=== PATIENT | male | born 1950 | race Caucasian/White ===

== ENCOUNTER → 2017-10-13 | Outpatient (REF) | payer MEDICARE ==
[2017-10-13 11:21] LABS: FOLATE 6.4 NG/ML; VITAMIN B12 LEVEL 272 PG/ML
[2017-10-18 14:19] LABS: VITAMIN B1 LEVEL WHOLE BLOOD 106.9 nmol/L (66.5-200.0)
== END ==
LOC: M LAB REF 10:36
DX: Z98.84 Bariatric surgery status (principal)
CPT/HCPCS: 82746

== ENCOUNTER → 2017-11-25 | Outpatient (CLI) | payer MEDICARE | LOC: M RAD 12:21 | DX: R31.0 Gross hematuria (principal) ==

== ENCOUNTER → 2017-12-22 | Outpatient (CLI) | payer MEDICARE | LOC: M RAD 13:23 | DX: R31.0 Gross hematuria (principal); I70.1 Atherosclerosis of renal artery; K76.89 Other specified diseases of liver; D73.89 Other diseases of spleen | CPT/HCPCS: 74176 ==

== ENCOUNTER 2018-01-27 06:34 | Day surgery (SDC) | payer MEDICARE ==
[~2018-01-27 06:34] MED LIST: NS 1,000 ML IV
[2018-01-27] MEDS ORDERED: LIDOCAINE 2% INJ 100 MG/5 ML SDV (FOR ANES.) As Ordered (07:25)
[2018-01-27] MEDS ORDERED: PROPOFOL 500 MG/50 ML VIAL As Ordered (07:25)
== END 2018-01-27 08:13 | disposition home or self-care (01) ==
LOC: M OPP 06:34
DX: Z12.11 Encounter for screening for malignant neoplasm of colon (principal); D12.5 Benign neoplasm of sigmoid colon; K57.30 Diverticulosis of large intestine without perforation or abscess without bleeding; K64.8 Other hemorrhoids; G47.30 Sleep apnea, unspecified; Z86.010 Personal history of colon polyps; Z98.890 Other specified postprocedural states; Z87.891 Personal history of nicotine dependence; Z98.0 Intestinal bypass and anastomosis status; Z91.041 Radiographic dye allergy status; Z88.1 Allergy status to other antibiotic agents; Z88.0 Allergy status to penicillin
CPT/HCPCS: 45385

== ENCOUNTER 2018-06-27 20:26 | Emergency (ER) | payer MEDICARE ==
[~2018-06-27] VITALS: Ht 177.8 cm; Wt 98.6 kg
[~2018-06-27 20:26] MED LIST changes: +ACET65TA OR; +ASPI325T OR; +ATEN25TA OR; +BACT800T OR; +CLAR5CHW OR; +FISH1000 OR; +Januvia PO; +METFORMIN PO; -NS 1,000 ML IV; +TRAM50TA2 OR; +TRIC145T19 OR; +TYLE1TAB5 PO
[2018-06-27 20:53] LABS: BASO # 0.1 10^3/uL (0.0-0.2); BASO % 0.7 % (0.0-1.0); EOS # 0.3 10^3/uL (0.0-0.50); EOS % 3.3 % (0.0-3.0); HEMATOCRIT 40.9 % (42.0-52.0); HEMOGLOBIN 13.7 g/dl (13.5-17.5); LYMPH # 2.9 10^3/uL (1.5-4.5); LYMPH % 33.5 % (24.0-44.0); MEAN CORPUSCULAR HEMOGLOBIN 30.9 pg (27.0-33.0); MEAN CORPUSCULAR HGB CONC 33.5 g/dl (32.0-36.5); MEAN CORPUSCULAR VOLUME 92.3 fl (80.0-96.0); MONO # 0.8 10^3/uL (0.0-0.8); MONO % 9.1 % (0.0-5.0); NEUTROPHILS # 4.5 10^3/uL (1.8-7.7); NEUTROPHILS % 52.9 % (36.0-66.0); PLATELET COUNT, AUTOMATED 262 10^3/uL (150-450); RED BLOOD COUNT 4.43 10^6/uL (4.30-6.10); WHITE BLOOD COUNT 8.6 10^3/uL (4.0-10.0)
[2018-06-27 21:30] LABS: BLOOD UREA NITROGEN 16 MG/DL (7-18); CALCIUM LEVEL 8.9 MG/DL (8.8-10.2); CARBON DIOXIDE LEVEL 26 MEQ/L (21-32); CHLORIDE LEVEL 106 MEQ/L (98-107); CPK CREATINE PHOSPHOKINASE 445 U/L (39-308); CREATININE FOR GFR 0.84 MG/DL (0.70-1.30); GLOMERULAR FILTRATION RATE > 60.0 (>49); GLUCOSE, FASTING 105 MG/DL (70-100); MB/CK RELATIVE INDEX 9.53 (< OR =4); POTASSIUM SERUM 3.9 MEQ/L (3.5-5.1); SODIUM LEVEL 140 MEQ/L (136-145); TROPONIN I 4.36 NG/ML (< 0.10)
[2018-06-27 21:40] LABS: INR 0.92; PROTHROMBIN TIME 12.4 SECONDS (12.1-14.4)
[2018-06-27] MEDS ORDERED: HEPARIN DRIP 25,000 UNITS in APPROPRIATE DILUENT 1 EA IV SCH (21:54)
[2018-06-27] MEDS ORDERED: CLOPIDOGREL 300 MG TAB (PLAVIX) PO ONE (22:00)
[2018-06-27] MEDS ORDERED: HEPARIN SOD (PORCINE) 5000 UNITS/ML VIAL IV ONE (22:00)
[2018-06-27] MEDS ORDERED: ASPIRIN 81 MG CHEW TABLET PO ONE (22:00)
--- NOTE | 2018-06-27 22:10 | ECGEPIP ---
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
[2018-06-27 23:35] VITALS: BP 189/95
--- NOTE | 2018-06-28 01:00 | REP ---
Clinical: Chest pain . Comparison: 02/13/2011 . Findings: The mediastinum and cardiac silhouette are stable and within normal limits for portable technique. Elevated right hemidiaphragm again noted. The lung gurrola are clear without acute consolidation, effusion, or pneumothorax. Skeletal structures are intact. Impression: No acute cardiopulmonary process appreciated. Electronically Signed by Phi Verdugo MD 06/28/2018 12:51 A
== END 2018-06-27 23:40 | disposition short-term general hospital (02) ==
LOC: M ED 20:26
DX: I21.4 Non-ST elevation (NSTEMI) myocardial infarction (principal); I44.1 Atrioventricular block, second degree; Z88.0 Allergy status to penicillin; Z88.1 Allergy status to other antibiotic agents; Z91.041 Radiographic dye allergy status; F10.99 Alcohol use, unspecified with unspecified alcohol-induced disorder

== ENCOUNTER → 2018-08-19 | Outpatient (CLI) | payer MEDICARE | LOC: M LAB 07:59 | PROVIDERS: ATTEND Urology | DX: R31.0 Gross hematuria (principal) ==

== ENCOUNTER → 2019-01-09 | Outpatient (CLI) | payer MEDICARE ==
--- NOTE | 2019-01-09 11:05 | REP ---
Six views lumbar spine: 01/09/2019. Indication: Lumbar radiculopathy. Comparison: None. Findings: Disc space narrowing is present throughout most pronounced at L4/L5. Disc osteophytes are noted most apparent anteriorly at L3/L4 new. There is no evidence of acute fracture. The patient is status post aortic endograft placement. Impression: No acute osseous injury of the lumbar spine detected. Extensive spondylosis. Electronically Signed by Osvaldo Sandoval DO 01/09/2019 10:57 A
== END ==
LOC: M RAD 09:21
PROVIDERS: ATTEND Nurse Practitioner Adult Health
DX: M54.5 Low back pain (principal)

== ENCOUNTER 2019-01-24 11:00 | Outpatient (RCR) | payer MEDICARE | END 2019-01-28 | LOC: M PT 11:00 | PROVIDERS: ATTEND Nurse Practitioner Adult Health | DX: M54.5 Low back pain (principal) ==

== ENCOUNTER 2019-02-01 13:38 | Outpatient (RCR) | payer MEDICARE | END 2019-02-28 | LOC: M PT 13:38 | PROVIDERS: ATTEND Nurse Practitioner Adult Health | DX: M54.5 Low back pain (principal) ==

== ENCOUNTER → 2019-02-08 | Outpatient (CLI) | payer MEDICARE | LOC: M LAB 10:48 | PROVIDERS: ATTEND Nurse Practitioner Family | DX: R97.20 Elevated prostate specific antigen [PSA] (principal) | CPT/HCPCS: 36415; G0103 ==

== ENCOUNTER 2019-05-20 23:29 | Emergency (ER) | payer MEDICARE ==
[~2019-05-20] VITALS: Ht 177.8 cm; Wt 97.9 kg
[2019-05-21] MEDS ORDERED: AMLO5TAB6 PO (00:05)
[2019-05-21] MEDS ORDERED: VITA30004 PO (00:05)
[2019-05-21] MEDS ORDERED: CLOP75TA2 PO (00:05)
[2019-05-21] MEDS ORDERED: ASPI81CH33 PO (00:05)
[2019-05-21] MEDS ORDERED: ATOR80TA59 PO (00:05)
[2019-05-21] MEDS ORDERED: LISI-542 PO (00:05)
[2019-05-21 00:38] LABS: BASO # 0.1 10^3/uL (0.0-0.2); BASO % 0.8 % (0.0-1.0); EOS # 0.4 10^3/uL (0.0-0.5); EOS % 4.6 % (0.0-3.0); HEMATOCRIT 41.9 % (42.0-52.0); LYMPH # 2.6 10^3/uL (1.5-5.0); LYMPH % 31.1 % (24.0-44.0); MEAN CORPUSCULAR HEMOGLOBIN 31.5 pg (27.0-33.0); MEAN CORPUSCULAR HGB CONC 33.4 g/dl (32.0-36.5); MEAN CORPUSCULAR VOLUME 94.4 fl (80.0-96.0); MONO # 0.8 10^3/uL (0.0-0.8); MONO % 9.5 % (0.0-5.0); NEUTROPHILS # 4.5 10^3/uL (1.5-8.5); NEUTROPHILS % 53.8 % (36.0-66.0); PLATELET COUNT, AUTOMATED 228 10^3/uL (150-450); RED BLOOD COUNT 4.44 10^6/uL (4.30-6.10); WHITE BLOOD COUNT 8.3 10^3/uL (4.0-10.0)
[2019-05-21] MEDS ORDERED: NS 500 ML IV ONE ×2 (00:45→01:00)
[2019-05-21] MEDS ORDERED: KETAMINE HCL 20 MG in NS 50 ML IV ONE (00:45)
[2019-05-21 00:56] LABS: BLOOD UREA NITROGEN 21 MG/DL (7-18); CALCIUM LEVEL 9.1 MG/DL (8.8-10.2); CARBON DIOXIDE LEVEL 28 MEQ/L (21-32); CHLORIDE LEVEL 107 MEQ/L (98-107); CREATININE FOR GFR 0.96 MG/DL (0.70-1.30); GLOMERULAR FILTRATION RATE > 60.0 (>42); GLUCOSE, FASTING 109 MG/DL (70-100); POTASSIUM SERUM 3.8 MEQ/L (3.5-5.1); SODIUM LEVEL 138 MEQ/L (136-145); T UPTAKE 35 % (33-40); THYROXINE (T4) 8.6 UG/DL (4.5-12.0)
--- NOTE | 2019-05-21 01:00 | REPVR ---
PROCEDURE INFORMATION: Exam: CT Lumbar Spine Without Contrast Exam date and time: 05/21/2019 12:42 AM Age: 68 years old Clinical indication: Low back pain TECHNIQUE: Imaging protocol: Computed tomography images of the lumbar spine without contrast. Radiation optimization: All CT scans at this facility use at least one of these dose optimization techniques: automated exposure control; mA and/or kV adjustment per patient size (includes targeted exams where dose is matched to clinical indication); or iterative reconstruction. COMPARISON: CR Spine. Lumbosacral, complete 01/09/2019 9:32 AM FINDINGS: Vertebrae: Chronic mild compression deformity of the superior anterior endplate of T12. Lumbar vertebral body heights are intact. Lumbar lordosis is preserved. Multilevel facet arthropathy. No acute lumbar spine fracture. No measurable spondylolisthesis. Discs/Spinal canal/Neural foramina: Multilevel degenerative changes with intervertebral disc height loss and osteophyte formation. Vasculature: Atherosclerotic calcifications of the aorta and major branches. Bi-iliac aortic endograft placement. Soft tissues: Unremarkable. IMPRESSION: 1. No acute findings in the lumbar spine. 2. Other chronic findings, as above. Electronically signed by: Aung Cross On 05/21/2019 01:00:09 AM
[2019-05-21 01:51] LABS: CPK CREATINE PHOSPHOKINASE 838 U/L (39-308)
[2019-05-21] MEDS ORDERED: ROBA750T4 PO (01:55)
[2019-05-21] MEDS ORDERED: METHOCARBAMOL 1,000 MG/10 ML VIAL (J2800) IV ONE (02:00)
[2019-05-21 02:56] VITALS: BP 170/108
== END 2019-05-21 03:11 | disposition home or self-care (01) ==
LOC: M ED 23:29
DX: E86.0 Dehydration (principal); S76.911A Strain of unspecified muscles, fascia and tendons at thigh level, right thigh, initial encounter; S76.912A Strain of unspecified muscles, fascia and tendons at thigh level, left thigh, initial encounter; X58.XXXA Exposure to other specified factors, initial encounter; Y92.89 Other specified places as the place of occurrence of the external cause; M54.9 Dorsalgia, unspecified; G89.29 Other chronic pain; M51.36 Other intervertebral disc degeneration, lumbar region; I11.9 Hypertensive heart disease without heart failure; E78.5 Hyperlipidemia, unspecified; I25.2 Old myocardial infarction; I25.10 Atherosclerotic heart disease of native coronary artery without angina pectoris; Z95.5 Presence of coronary angioplasty implant and graft; Z98.84 Bariatric surgery status; Z91.041 Radiographic dye allergy status; Z88.0 Allergy status to penicillin; Z88.1 Allergy status to other antibiotic agents; Z79.899 Other long term (current) drug therapy; Z79.02 Long term (current) use of antithrombotics/antiplatelets; Z79.82 Long term (current) use of aspirin
CPT/HCPCS: 72131; 80048; 82550; 84436; 84443; 84479; 85025; 96361; 96365; 96375; 99284; J2800

== ENCOUNTER 2019-08-16 23:45 | Emergency (ER) | payer MEDICARE ==
[~2019-08-16] VITALS: Ht 177.8 cm; Wt 95.0 kg
[~2019-08-16 23:45] MED LIST changes: +AMLO5TAB6 PO; +ASPI81CH33 PO; +ATOR80TA59 PO; +CLOP75TA2 PO; +LISI-542 PO; +ROBA750T4 PO; +VITA30004 PO
[2019-08-17] MEDS ORDERED: KETOROLAC 30 MG/ML 1ML VIAL IV ONE (01:30)
[2019-08-17 02:30] LABS: BASO % 0.5 % (0.0-1.0); EOS # 0.3 10^3/uL (0.0-0.5); EOS % 3.3 % (0.0-3.0); HEMATOCRIT 38.9 % (42.0-52.0); HEMOGLOBIN 12.7 g/dl (13.5-17.5); LYMPH % 26.2 % (24.0-44.0); MEAN CORPUSCULAR HEMOGLOBIN 31.3 pg (27.0-33.0); MEAN CORPUSCULAR HGB CONC 32.6 g/dl (32.0-36.5); MEAN CORPUSCULAR VOLUME 95.8 fl (80.0-96.0); MONO # 0.9 10^3/uL (0.0-0.8); MONO % 11.6 % (0.0-5.0); NEUTROPHILS # 4.4 10^3/uL (1.5-8.5); NEUTROPHILS % 58.1 % (36.0-66.0); PLATELET COUNT, AUTOMATED 208 10^3/uL (150-450); RED BLOOD COUNT 4.06 10^6/uL (4.30-6.10); WHITE BLOOD COUNT 7.6 10^3/uL (4.0-10.0)
[2019-08-17] MEDS ORDERED: ONDANSETRON 4MG/2ML VIAL IV ONE (02:30)
[2019-08-17 02:35] LABS: PROTHROMBIN TIME 12.9 SECONDS (11.8-14.0)
[2019-08-17] MEDS: MORPHINE 4 MG/ML 1ML VIAL/SYRINGE (J2270) IV PRN ×2 (02:35→03:18)
[2019-08-17 02:36] LABS: PARTIAL THROMBOPLASTIN TIME 33.8 SECONDS (25.0-38.4)
[2019-08-17 02:46] VITALS: BP 175/74
--- NOTE | 2019-08-17 03:00 | REPVR ---
PROCEDURE INFORMATION: Exam: US Duplex Left Lower Extremity Veins, Limited Exam date and time: 08/17/2019 2:33 AM Age: 68 years old Clinical indication: Pain; Leg, upper; Left; Additional info: Left thigh pain TECHNIQUE: Imaging protocol: Real-time Duplex ultrasound of the Left Lower Extremity with 2-D ramirez scale, color Doppler flow and spectral waveform analysis with image documentation. Limited exam focused on the left lower extremity veins. COMPARISON: No relevant prior studies available. FINDINGS: Left deep veins: Unremarkable. The common femoral, femoral, proximal profunda femoral and popliteal veins are patent without thrombus. Normal Doppler waveforms. Normal compressibility and/or augmentation response. Left superficial veins: Unremarkable. Saphenofemoral junction is patent without thrombus. Left superficial femoral artery: No flow is visualized in the left superficial femoral arteries or popliteal artery. Common femoral artery is patent. Soft tissues: There is a heterogeneous complex subcutaneous collection in the left groin adjacent to the common femoral artery measuring approximately 4.6 x 3.8 x 4.1 cm. No internal Doppler blood flow is seen in the collection. IMPRESSION: 1. Occluded left superficial femoral and popliteal arteries. 2. No deep vein thrombosis. 3. Heterogeneous collection in the left groin may be a hematoma but the appearance is nonspecific. No internal Doppler blood flow or fistula is seen. Electronically signed by: Wilfrido Haji On 08/17/2019 03:00:02 AM
[2019-08-17 03:03] LABS: BLOOD UREA NITROGEN 21 MG/DL (7-18); CALCIUM LEVEL 8.4 MG/DL (8.8-10.2); CARBON DIOXIDE LEVEL 27 MEQ/L (21-32); CHLORIDE LEVEL 109 MEQ/L (98-107); CPK CREATINE PHOSPHOKINASE 580 U/L (39-308); CREATININE FOR GFR 0.81 MG/DL (0.70-1.30); GLOMERULAR FILTRATION RATE > 60.0 (>42); GLUCOSE, FASTING 121 MG/DL (70-100); POTASSIUM SERUM 3.9 MEQ/L (3.5-5.1); SODIUM LEVEL 141 MEQ/L (136-145)
[2019-08-17] MEDS ORDERED: GABAPENTIN 300 MG CAP PO ONE (03:45)
--- NOTE | 2019-08-17 05:18 | REPVR ---
PROCEDURE INFORMATION: Exam: US Right Non-Vascular Joint or Other Extremity Structure, Limited Exam date and time: 08/17/2019 5:01 AM Age: 68 years old Clinical indication: Pain; Thigh and lower leg; Left; Prior surgery; Surgery date: 6+ months; Surgery type: Graft? Per patient in the 1970s; Additional info: Left thigh pain, art occlusion seen on dvt study, vasc reque TECHNIQUE: Imaging protocol: Right US Non-Vascular Joint or Other Extremity Structure. Limited exam COMPARISON: No relevant prior studies available. FINDINGS: Soft tissues: There is a complex heterogeneous collection in the left groin measuring approximately 5.0 x 3.5 x 4.8 cm adjacent to the left common femoral artery. No blood flow is seen within the structure. Vasculature: Biphasic flow is present in the left common femoral artery. Minimal flow is visualized in the proximal femoral artery. The mid and distal femoral artery are occluded. Left profunda femoral artery is occluded. Proximal popliteal artery is occluded. Flow is present in the distal popliteal artery through a graft. A patent vessel with arterial flow extending down the mid and distal lateral thigh bifurcates into multiple small collaterals. Distal posterior tibial artery is occluded. Anterior tibial artery is patent. Other findings: The common and external iliac arteries are not well visualized. IMPRESSION: 1. Heterogeneous complex collection in the left groin, likely hematoma. No internal blood flow is seen. 2. Occluded mid and distal femoral artery. Occluded popliteal artery with revascularization through a graft in the distal popliteal artery. 3. Occluded posterior tibial artery. Patent anterior tibial artery. Electronically signed by: Wilfrido Haji On 08/17/2019 05:17:40 AM
[2019-08-17] MEDS ORDERED: GABA-845 PO (06:23)
== END 2019-08-17 06:37 | disposition home or self-care (01) ==
LOC: M ED 23:45
DX: M79.606 Pain in leg, unspecified (principal); I10 Essential (primary) hypertension; I73.9 Peripheral vascular disease, unspecified; Z91.041 Radiographic dye allergy status; Z88.0 Allergy status to penicillin; Z88.8 Allergy status to other drugs, medicaments and biological substances; Z79.899 Other long term (current) drug therapy; Z79.01 Long term (current) use of anticoagulants; Z79.82 Long term (current) use of aspirin
CPT/HCPCS: 80048; 82550; 85025; 85610; 85730; 93926; 93971; 96374; 96375; 96376; 99284; J1885; J2270; J2405

== ENCOUNTER 2019-11-18 14:47 | Inpatient (IN) | payer MEDICARE ==
[~2019-11-18] VITALS: Ht 177.8 cm; Wt 90.9 kg
[~2019-11-18 14:47] MED LIST changes: +AMLO1TAB24 PO; -AMLO5TAB6 PO; +GABA-845 PO
[2019-11-18] MEDS ORDERED: PERCOCET 5MG/325MG TAB PO ONE (15:45)
--- NOTE | 2019-11-18 17:46 | REPVR ---
PROCEDURE INFORMATION: Exam: US Duplex Left Lower Extremity Veins, Limited Exam date and time: 11/18/2019 4:43 PM Age: 68 years old Clinical indication: Pain; Leg, upper; Left; Prior surgery; Surgery date: 6+ months; Surgery type: Patient states arterial surgery in 70s; Additional info: Left thigh pain, TECHNIQUE: Imaging protocol: Real-time Duplex ultrasound of the Left Lower Extremity with 2-D ramirez scale, color Doppler flow and spectral waveform analysis with image documentation. Limited exam focused on the left lower extremity veins. COMPARISON: US Duplex, Ext,LOWER veins,unilat 08/17/2019 1:36 AM FINDINGS: Left deep veins: Unremarkable. The common femoral, femoral, proximal profunda femoral and popliteal veins are patent without thrombus. Normal Doppler waveforms. Normal compressibility and/or augmentation response. Left superficial veins: Unremarkable. Saphenofemoral junction is patent without thrombus. Soft tissues: Complex hypoechoic solid appearing mass in the left inguinal region measures 5.4 x 3.65.3 cm with internal flow. Differential diagnosis includes adenopathy although the presence of prominent flow on color flow Doppler suggested possible partial partially thrombosed pseudoaneurysm. IMPRESSION: Complex hypoechoic solid appearing mass in the left inguinal region measures 5.4 x 3.65.3 cm with internal flow. Differential diagnosis includes adenopathy although the presence of prominent flow on color flow Doppler suggested possible partial partially thrombosed pseudoaneurysm. No DVT. Electronically signed by: Berlin Reese On 11/18/2019 17:46:03 PM
[2019-11-18] MEDS ORDERED: MORPHINE 2 MG/ML 1ML VIAL (J2270) IV ONE (18:30)
[2019-11-18] MEDS ORDERED: diphenhydrAMINE 50MG/ML VIAL (J1200) IV STA (18:38)
[2019-11-18] MEDS ORDERED: methylPREDNISolone 125MG 2ML VIAL IV ONE (18:45)
[2019-11-18 18:54] LABS: BASO % 0.3 % (0.0-1.0); EOS # 0.1 10^3/uL (0.0-0.5); EOS % 0.7 % (0.0-3.0); HEMATOCRIT 41.7 % (42.0-52.0); HEMOGLOBIN 13.8 g/dl (13.5-17.5); LYMPH # 1.7 10^3/uL (1.5-5.0); MEAN CORPUSCULAR HEMOGLOBIN 31.4 pg (27.0-33.0); MEAN CORPUSCULAR HGB CONC 33.1 g/dl (32.0-36.5); MONO # 0.9 10^3/uL (0.0-0.8); MONO % 9.3 % (0.0-5.0); NEUTROPHILS # 6.9 10^3/uL (1.5-8.5); NEUTROPHILS % 71.3 % (36.0-66.0); PLATELET COUNT, AUTOMATED 197 10^3/uL (150-450); RED BLOOD COUNT 4.39 10^6/uL (4.30-6.10); WHITE BLOOD COUNT 9.6 10^3/uL (4.0-10.0)
[2019-11-18 19:05] LABS: PROTHROMBIN TIME 13.4 SECONDS (12.5-14.3)
[2019-11-18 19:06] LABS: PARTIAL THROMBOPLASTIN TIME 31.3 SECONDS (24.2-38.5)
[2019-11-18 19:26] LABS: ALBUMIN 3.6 GM/DL (3.2-5.2); ALT/SGPT 77 U/L (12-78); BILIRUBIN,DIRECT 0.2 MG/DL (0.0-0.2); BILIRUBIN,TOTAL 0.8 MG/DL (0.2-1.0); C REACTIVE PROTEIN QUANTITATIV < 0.30 MG/DL (0.00-0.30); TOTAL PROTEIN 6.7 GM/DL (6.4-8.2)
[2019-11-18] MEDS ORDERED: ISOVUE-370 76% 100ML VIAL As Ordered ONE (19:30)
[2019-11-18 20:11] LABS: ERYTHROCYTE SEDIMENTATION RATE 5 mm/hr (0-20)
--- NOTE | 2019-11-18 20:20 | REPVR ---
PROCEDURE INFORMATION: Exam: CTA Angiogram of the Abdominal Aorta and Bilateral Lower Extremities (Run-off) With IV Contrast Exam date and time: 11/18/2019 7:36 PM Age: 68 years old Clinical indication: Other: Concern for femoral graft infection; Additional info: Concern for femoral graft infection left TECHNIQUE: Imaging protocol: CT angiogram of the abdominal aorta, pelvis and bilateral lower extremities with IV iodinated contrast. 3D rendering (Not supervised by radiologist): MIP and/or 3D reconstructed images were created by the technologist. Radiation optimization: All CT scans at this facility use at least one of these dose optimization techniques: automated exposure control; mA and/or kV adjustment per patient size (includes targeted exams where dose is matched to clinical indication); or iterative reconstruction. Contrast material: ISOVUE 370; Contrast volume: 100 ml; Contrast route: INTRAVENOUS (IV); COMPARISON: CT ABD PELVIS W/O CONTRAST 12/22/2017 1:35 PM FINDINGS: Aorta: Atherosclerotic changes in the abdominal aorta status post placement of a bifurcating endograft. Proximal anastomosis appears unremarkable. Celiac trunk and mesenteric arteries: No occlusion or significant stenosis. Renal arteries: No occlusion or significant stenosis. Right iliac arteries: [place] common iliac artery on the right dilated to 2.1 cm. Patent graft demonstrated. [id number] calcific and noncalcific atherosclerotic changes in the right external iliac artery. Near complete occlusion in the proximal right internal iliac artery. Right femoral/popliteal arteries: Moderate to severe atherosclerotic changes in the right common femoral artery which is aneurysmally dilated to 1.7 cm. Right superficial femoral artery occluded at its origin. Vessel appears dilated throughout its course which appears to represent a thrombosed graft. Right popliteal artery fills via per fundal and geniculate collaterals and demonstrates moderate atherosclerotic changes distally just after the anastomosis with the graft. Right infrapopliteal arteries: Right infrapopliteal arteries demonstrate multiple foci of occlusive atherosclerotic disease with thread-like visualization of the anterior tibial artery to the ankle. The posterior tibial and peroneal arteries not well visualized. Left iliac arteries: [place] common iliac artery on the left measures 2.1 cm. Patent graft is patent. There is evidence of extraluminal contrast near the distal anastomosis consistent with an endograft leak. Oyur-rw-vkyjduks atherosclerotic changes in the left external internal iliac arteries with a high-grade stenosis at the proximal left internal iliac artery without any significant stenosis in the external iliac artery. 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 No early venous filling to suggest fistula.. The left superficial femoral artery and and femoral graft are occluded at their origin. Left popliteal artery is occluded. Left infrapopliteal arteries: Infrapopliteal arteries fill from profundus and geniculate collaterals demonstrating atherosclerotic changes throughout. The anterior tibial artery demonstrate atherosclerotic changes and is thread-like but can be traced to the dorsalis pedis artery. Posterior tibial artery is occluded. The peroneal arteries markedly attenuated. Lungs: Bibasilar atelectasis. Liver: No mass. Gallbladder and bile ducts: Unremarkable. No calcified stones. No ductal dilation. Pancreas: Unremarkable. No mass. No ductal dilation. Spleen: The spleen demonstrates punctate calcifications, consistent with remote granulomatous organism exposure. Adrenals: Normal. No mass. Kidneys and ureters: Punctate nonobstructive calculus in the upper pole of the right kidney. Stomach and bowel: This patient is status post gastric bypass surgery. Mild diverticulosis is present in the left colon. No diverticulitis. Appendix: No evidence of appendicitis. Bladder: Unremarkable. No mass. Reproductive: The prostate gland demonstrates marked hyperplasia. Intraperitoneal space: Unremarkable. No free air. No significant fluid collection. Lymph nodes: No lymphadenopathy. Bones/joints: Mild central spinal stenosis L2-L3, moderate central spinal stenosis L3-L4 and moderate to severe central spinal stenosis L4-L5. Soft tissues: Unremarkable. IMPRESSION: 1. This patient is status post gastric bypass surgery. 2. Mild diverticulosis is present in the left colon. No diverticulitis. 3. Marked prostatic hyperplasia. 4. [place] common iliac artery on the left measures 2.1 cm. Patent graft is patent. There is evidence of extraluminal contrast near the distal anastomosis consistent with an endograft leak. 5. 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 6. Right superficial femoral artery occluded at its origin. Vessel appears dilated throughout its course which appears to represent a thrombosed graft. 7. 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 No early venous filling to suggest fistula. 8. There is a centrally one-vessel runoff in both legs via the anterior tibial arteries which are markedly attenuated. Peroneal arteries not well visualized bilaterally. Electronically signed by: Berlin Reese On 11/18/2019 20:20:41 PM
[2019-11-18] MEDS ORDERED: DAKIN'S 0.25% HALF-STRENGTH SOLN 480 ML TOP ONE (21:45)
[2019-11-18] MEDS ORDERED: HEPARIN SOD (PORCINE) 5000UNITS/ML 1ML VIAL/SYRINGE As Ordered ONE ×2 (21:52→23:02)
[2019-11-18] MEDS ORDERED: BUPIVACAINE/EPIN 0.5% 30 ML VIAL As Ordered ONE (21:52)
[2019-11-18] MEDS ORDERED: THROMBIN SOLN 5,000 UNITS VIAL As Ordered ONE (21:52)
[2019-11-18] MEDS ORDERED: D31000TA2 PO (22:00)
[2019-11-18] MEDS ORDERED: TURM500C PO (22:00)
[2019-11-18] MEDS ORDERED: propofoL 200 MG/20 ML VIAL As Ordered ONE ×2 (22:25→23:54)
[2019-11-18] MEDS ORDERED: LIDOCAINE 2% INJ 100 MG/5 ML SYRINGE As Ordered ONE (22:28)
[2019-11-18] MEDS ORDERED: ROCURONIUM BROMIDE 50 MG/5 ML VIAL As Ordered ONE (22:29)
[2019-11-18] MEDS ORDERED: MIDAZOLAM INJ 2MG/2ML VIAL (J2250 PER 1MG) As Ordered ONE (22:30)
[2019-11-18] MEDS ORDERED: dexameTHASONE 4 MG/ML 1ML VIAL (J1100 PER 1MG) As Ordered ONE (22:32)
[2019-11-18] MEDS ORDERED: fentaNYL 100 MCG/2 ML INJECTION (J3010) As Ordered ONE (22:32)
--- NOTE | 2019-11-18 22:35 | CR.PDOC ---
General Date of Consultation: Nov 18, 2019 Consultation REASON FOR CONSULTATION/CHIEF COMPLAINT: Left groin and thigh pain HISTORY OF PRESENT ILLNESS: Mr. Sung is a very pleasant 68-year-old gentleman with a long-standing history of noncompliance who has had multiple vascular interventions at other institutions with other providers in the past, but he is a poor historian and it is unclear when these procedures were performed. Based on imaging, it appears the patient has had bilateral iliac kissing stent, or right femoropopliteal bypass, and a left femoropopliteal bypass. He says he did follow up for these procedures initially with appropriate surveillance, but then stopped and was not aware that his bypasses were occluded, likely chronically. At midnight last night, the patient reports he felt acute pain in his left groin and thigh. He said there was no inciting trauma, no falls, no recent procedures, or any other inciting events. He put a warm pack on his thigh and groin, and the pain did not dissipate, so he came to the ER today. Eventually, I received a call regarding the patient due to report from a venous duplex for a large mass in the left groin with vascular flow, and I recommended a full panel of labs and a CTA. My suspicion at that time was infected bypass graft with disruption of the graft anastomosis. I reviewed the CTA. 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 On the left however the patient has a large hematoma in the left groin, partially thrombosed but with some active flow suggestive of a graft disruption. I do not see a large correlating abscess or obvious inflammation, so it is unclear if this is secondary to a less virulent bacteria such as staph epi or another etiology altogether. Nevertheless, I discussed the risks benefits and alternatives to an open operation to explore the femoral artery, remove any affected graft in the area, repair the femoral artery, possibly patch angioplasty, possible muscle flap, possible wound VAC, possibly leave the groin open. We will take cultures and send these for Gram stain in the OR to help us decide whether or not to try to close the groin. After extensive conversation the patient was agreeable to proceed. Informed consent was obtained. ALLERGIES: Please see below. HOME MEDICATIONS: Please see below. 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 bypass grafts bilateral femorals, coronary artery disease, hypertension, hypercholesterolemia, kidney stones PAST SURGICAL HISTORY: Bilateral femoral bypass grafts, cataract surgery, cardiac stents, iliac stents, gastric bypass surgery, colonoscopy, repair right leg fracture FAMILY HISTORY: Heart disease SOCIAL HISTORY: Patient denies tobacco or illicit drug use, but has daily alcohol use REVIEW OF SYSTEMS: CONSTITUTIONAL: Denies fevers chills HEENT: Positive history cataracts CARDIOVASCULAR: Positive history hypertension hypercholesterolemia coronary artery disease RESPIRATORY: Positive history shortness of breath and sleep apnea GENITOURINARY: Positive history kidney stone MUSCULOSKELETAL: Positive history of back pain and leg pain and claudication GASTROINTESTINAL: Positive history constipation SKIN: Denies rashes or wounds NEUROLOGICAL: Denies stroke or focal deficits or headache PSYCHIATRIC: Denies anxiety or depression ENDOCRINE: Denies diabetes or thyroid disease but says he has been diagnosed with diabetes in the past HEMATOLOGIC/LYMPHATIC: Denies anemia ALLERGIC/IMMUNOLOGIC: Denies PHYSICAL EXAMINATION: VITAL SIGNS: Please see below. GENERAL APPEARANCE: Medically stable no acute distress HEENT: Normocephalic, vision grossly intact, TMI RESPIRATORY: Slightly coarse breath sounds bilaterally, no wheezes CARDIOVASCULAR: Regular rate and rhythm ABDOMEN: Soft obese nontender nondistended EXTREMITIES: Bilateral lower extremities warm, 2 second capillary refill, monophasic flow at the foot, no palpable pulses, left groin mild erythema and tender to palpation over left groin and thigh NEUROLOGICAL: Moves all extremities equally alert and oriented PSYCHIATRIC: Pleasant and cooperative LABORATORY DATA: Please see below. ASSESSMENT/PLAN: Very pleasant 68-year-old gentleman with severe long-standing end-stage peripheral vascular disease, failed bilateral lower extremity bypasses by other providers in the distant past lost to follow-up, now with left groin pseudoaneurysm suggestive of arterial graft anastomosis disruption unknown etiology, suspect infection 1. We will proceed to the OR for left femoral vessel and exploration. We will likely excise any visible graft since it is thrombosed, to eliminate is a source of infection. We will likely patch the artery or replace it after graft removal. Depending on findings and obvious signs of infection and Gram stain, we may decide to close the groin versus leave it open with a muscle flap and a wound VA C. I discussed with the patient that this is a high risk procedure, and that he has multiple medical comorbidities including obesity that will make this challenging both Intra-Op and postop. He is agreeable to proceed. 2. Recommend broad-spectrum antibiotics 3. Depending on findings in the OR, we will admit the patient to the ICU versus [facility] floor. The hospitalist will be admitting, and I discussed this case with them. We appreciate their assistance. We appreciate the opportunity to participate in the care of this patient. Vital Signs/I&O Vital Signs Date Time Temp Pulse Resp B/P (MAP) Pulse Ox O2 Delivery O2 Flow Rate FiO2 11/18/19 21:38 59 18 163/76 (105) 96 Room Air 11/18/19 19:30 98.0 Laboratory Data Labs 24H Laboratory Tests 2 11/18/19 18:37: Immature Granulocyte % (Auto) 0.4, Neutrophils (%) (Auto) 71.3H, Lymphocytes (%) (Auto) 18.0L, Monocytes (%) (Auto) 9.3H, Eosinophils (%) (Auto) 0.7, Basophils (%) (Auto) 0.3, Neutrophils # (Auto) 6.9, Lymphocytes # (Auto) 1.7, Monocytes # (Auto) 0.9H, Eosinophils # (Auto) 0.1, Basophils # (Auto) 0.0, Nucleated Red Blood Cells % (auto) 0.0, Erythrocyte Sedimentation Rate 5, Prothrombin Time 13.4, Prothromb Time International Ratio 1.00, Activated Partial Thromboplast Time 31.3, Total Bilirubin 0.8, Direct Bilirubin 0.2, Aspartate Amino Transf (AST/SGOT) 58H, Alanine Aminotransferase (ALT/SGPT) 77, Alkaline Phosphatase 73, C-Reactive Protein, Quantitative < 0.30, Total Protein 6.7, Albumin 3.6, Albumin/Globulin Ratio 1.2 11/18/19 18:40: Lactic Acid Level 1.2 11/18/19 18:47: POC Glucose (Misc Panel) 110H, POC Sodium (Misc Panel) 141, POC Potassium (Misc Panel) 4.0, POC Chloride (Misc Panel) 104, POC Total CO2 (Misc Panel) 25.0, POC Blood Urea Nitrogen (Misc Panel 18, POC Ionized Calcium (Misc Panel) 4.9, POC Creatinine (Misc Panel) 0.8, POC Hematocrit (Misc Panel) 42.0 11/18/19 21:19: Coronavirus (COVID-19)(PCR) NEGATIVE CBC/BMP Laboratory Tests 11/18/19 18:37 Microbiology Microbiology 11/18/19 Blood Culture, Received Pending 11/18/19 Blood Culture, Received Pending Allergies Coded Allergies: Contrast Media (Verified Allergy, Unknown, 06/27/18) Penicillins (Verified Allergy, Unknown, 06/27/18) Quinolones (Verified Allergy, Unknown, 06/27/18) Home Medications Scheduled Amlodipine Besylate (Amlodipine Besylate) 5 Mg Tablet, 5 MG PO DAILY, (Reported) Aspirin (Aspirin) 81 Mg Tab.chew, 81 MG PO DAILY, (Reported) Atorvastatin Calcium (Atorvastatin Calcium) 80 Mg Tablet, 80 MG PO DAILY, (Reported) Cholecalciferol (Vitamin D3) (Vitamin D3) 1,000 Unit Tablet, 2,000 UNITS PO DAILY, (Reported) Clopidogrel Bisulfate (Clopidogrel) 75 Mg Tablet, 75 MG PO DAILY, (Reported) Lisinopril (Lisinopril) 5 Mg Tablet, 5 MG PO DAILY, (Reported) Turmeric/Turmeric Root Extract (Turmeric 500 mg Capsule) 1 Each Capsule, 500 MG PO DAILY, (Reported) JOHN NICHOLSON MD Nov 18, 2019 22:35
[2019-11-18] MEDS ORDERED: VANCOMYCIN 500MG/10ML VIAL As Ordered ONE (23:02)
[2019-11-18] MEDS ORDERED: VANCOMYCIN 1000MG/20ML VIAL As Ordered ONE (23:02)
[2019-11-18] MEDS ORDERED: THROMBIN SOLN 20,000 UNITS KIT As Ordered ONE (23:46)
[2019-11-19] MEDS ORDERED: CEFEPIME HCL 2 GM in D5W MINI-BAG PLUS 50 ML IV ONE ×2
[2019-11-19] MEDS ORDERED: ePHEDrine SULFATE 25 MG/5 ML(5MG/ML) SYRINGE As Ordered ONE (00:05)
--- NOTE | 2019-11-19 00:05 | HPEPDOC ---
[facility] Medical History & Physical Date of Admission Nov 18, 2019 Date of Service: Nov 18, 2019 Attending Physician: WU MONTANA MD History and Physical CHIEF COMPLAINT: L-thigh pain HISTORY OF PRESENT ILLNESS: Patient is a 68 year old male with significant PMHx of multiple lower extremity vascular surgeries presenting with chief complaint of left thigh pain since midnight on 11/18/2019 that began suddenly waking him from sleep. He put a heating pad on the area and on waking up in the morning noted an area of redness overlying where he had the heating pack. He denies any history of overt trauma stating only he was using a jackhammer this past Wednesday but does not recall any injury with it, he otherwise denies any recent or current complaints at this time, see ROS. His pain did not resolve during the day which brought him to the emergency department In the ED his work up was remarkable for venous duplex showing hypoechoic solid appearing mass in the left inguinal region with CTA showing soft tissue mas in left common femoral artery. Vascular surgery was contacted, reviewed the imaging which was concerning for possible infected stent, and informed ED provider and hospital of plans to take patient to the OR [facility] with hospitalist service admitting for medical management. Of note, he was seen at [facility] ED in July 2019 for left leg pain and was found to have a heterogenous complex collection in his left groin and arterial occlusions with instructions to follow up with Dr. Livingston in 1 week and failed to do so. He has a history of vascular repair at [facility] and [facility] with eventual failed to follow up with these places as well. PAST MEDICAL HISTORY: Hx of DC CAD Atherosclerosis of the [place] arteries with failure non-autologous bypass grafts bilateral femorals HTN Hypercholesterolemia Hx of MALACHI no longer on CPAP s/p gastric bypass hx of nephrolithiasis Hx of RLE DVT medical non-compliance PAST SURGICAL HISTORY: Cardiac stentsx2 Bilateral femoral bypass grafts iliac stents gastric bypass surgery colonoscopy (2018)- tubular adenoma on pathology Colonoscopy (2015)-tubulovillous adenoma on pathology R-leg fx repair SOCIAL HISTORY: Denies tobacco use, 2-3 alcoholic beverages/day, no illicit drugs. FAMILY HISTORY: Denies family history of blood clots, DC, or cancer ALLERGIES: Please see below. REVIEW OF SYSTEMS: Constitutional: Denies fevers, chills, night sweats, or recent unexpected weight change HEENT: Denies Headaches, head trauma, No visual changes or eye pain, denies nose bleeds, or difficulty swallowing Cardiovascular: Denies chest pain, palpitations, or orthopnea Respiratory: Denies cough, wheezing, or shortness of breath GI: Denies nausea, vomiting, abdominal pain, diarrhea or constipation : Denies pain with urination or frequency Musculoskeletal: Denies joint pain or swelling Neuro / Psych: Denies muscle weakness or sensory loss Skin: Admits to LLE thigh rash and pain/tenderness to palpation HOME MEDICATIONS: Please see below. PHYSICAL EXAMINATION: VITAL SIGNS: See below GENERAL: Well appearing male laying in bed in no acute distress HEENT: NC, AT, EOMI, no scleral icterus, moist mucous membranes, no pharyngeal erythema. NECK: No cervical or supraclavicular lymphadenopathy. No JVD. CARDIOVASCULAR: RRR, systolic murmur noted, no gallops or rubs. LUNGS: CTAB with full breath sounds, no wheezes, crackles, or rhonchi. ABDOMEN: Soft, non-tender, non-distended, bowel sounds present. No hepatosplenomegaly. No masses or eccymosis. No CVA tenderness. EXTREMITIES: No swelling in bilateral extremities, dopplers with pulses in PT/DP arteries, legs are warm to palpation. Area of mild erythema overlying L- anteromedial thigh that is tender to deep palpation. SKIN: No rashes or skin changes. NEUROLOGICAL: No focal or sensory deficits. CN II-XII grossly intact. PSYCHIATRIC: Normal mood and affect. LABORATORY DATA: See below. IMAGIN11/18/2019 Duplex E U/S: "Complex hypoechoic solid appearing mass in the left inguinal region measures 5.4 x 3.65.3 cm with internal flow. Differential diagnosis includes adenopathy although the presence of prominent flow on color flow Doppler suggested possible partial partially thrombosed pseudoaneurysm. No DVT. " 11/18/2019 CT angio abdominal arteries: "1. This patient is status post gastric bypass surgery. 2. Mild diverticulosis is present in the left colon. No diverticulitis. 3. Marked prostatic hyperplasia. 4. [place] common iliac artery on the left measures 2.1 cm. Patent graft is patent. There is evidence of extraluminal contrast near the distal anastomosis consistent with an endograft leak. 5. 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 6. Right superficial femoral artery occluded at its origin. Vessel appears dilated throughout its course which appears to represent a thrombosed graft. 7. 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 No early venous filling to suggest fistula. 8. There is a centrally one-vessel runoff in both legs via the anterior tibial arteries which are markedly attenuated. Peroneal arteries not well visualized bilaterally. " MICROBIOLOGY: Please see below. Assessment/Plan: Patient is a 68 year old male with pmhx of bilateral vascular surgeries in his legs, cardiac stents, and hx of RLE dvt presenting with L-thigh pain and imaging findings concerning for infected stents. #. L-Femoral artery hematoma vs infected graft -Primary management through Dr. Livingston who will take patient to the OR to night for open surgical repair with plans to take gram stains to help vascular decide whether or not to close the groin or leave it open. -Diet, activity, PO pain meds, and anticoagulation per vascular surgery. Dr. Livingston ok with hospitalist doing IV pain meds as we deem necessary. -Broad spectrum antibiotics (vanc and cefepime) pending gram stain results from the OR. -Orders entered for ICU admission and can downgrade as per vascular surgery recommendations. -BCx2, urine culture pending, COVID neg, lactic acid WNL -*Update, per Dr. Livingston no findings on gram stain, ok to continue abx for 24 hours then will be fine to DC. Path still sent out. The hematoma that was removed was chronic, but their were no overt signs of infection in the OR. #. 2nd degree type 2 AV block - Patient went into the above rhythm with conversion back to NSR in pre-op, will remain in ICU on telemetry for the time being. #. Alcohol use -Given patients's history as a questionable historian, will enact CIWA protocol as a precaution #. CAD -Continue statin -Plavix and aspirin on hold, to be determined further by vascular surgery #. HTN -Continue home medications. #. Hx of medical non-adherence -Complicating care. DVT prophylaxis: Pending vascular surgery orders CODE STATUS: FULL CODE Dispo: pending OR evaluation Vital Signs Vital Signs Date Time Temp Pulse Resp B/P (MAP) Pulse Ox O2 Delivery O2 Flow Rate FiO2 11/18/19 22:43 98.1 60 18 160/68 (98) 95 Room Air Laboratory Data Labs 24H Laboratory Tests 2 11/18/19 18:37: Immature Granulocyte % (Auto) 0.4, Neutrophils (%) (Auto) 71.3H, Lymphocytes (%) (Auto) 18.0L, Monocytes (%) (Auto) 9.3H, Eosinophils (%) (Auto) 0.7, Basophils (%) (Auto) 0.3, Neutrophils # (Auto) 6.9, Lymphocytes # (Auto) 1.7, Monocytes # (Auto) 0.9H, Eosinophils # (Auto) 0.1, Basophils # (Auto) 0.0, Nucleated Red Blood Cells % (auto) 0.0, Erythrocyte Sedimentation Rate 5, Prothrombin Time 13.4, Prothromb Time International Ratio 1.00, Activated Partial Thromboplast Time 31.3, Total Bilirubin 0.8, Direct Bilirubin 0.2, Aspartate Amino Transf (AST/SGOT) 58H, Alanine Aminotransferase (ALT/SGPT) 77, Alkaline Phosphatase 73, C-Reactive Protein, Quantitative < 0.30, Total Protein 6.7, Albumin 3.6, Albumin/Globulin Ratio 1.2 11/18/19 18:40: Lactic Acid Level 1.2 11/18/19 18:47: POC Glucose (Misc Panel) 110H, POC Sodium (Misc Panel) 141, POC Potassium (Misc Panel) 4.0, POC Chloride (Misc Panel) 104, POC Total CO2 (Misc Panel) 25.0, POC Blood Urea Nitrogen (Misc Panel 18, POC Ionized Calcium (Misc Panel) 4.9, POC Creatinine (Misc Panel) 0.8, POC Hematocrit (Misc Panel) 42.0 11/18/19 21:19: Coronavirus (COVID-19)(PCR) NEGATIVE CBC/BMP Laboratory Tests 11/18/19 18:37 Microbiology Microbiology 11/18/19 Blood Culture, Received Pending 11/18/19 Blood Culture, Received Pending Home Medications Scheduled Amlodipine Besylate (Amlodipine Besylate) 5 Mg Tablet, 5 MG PO DAILY Aspirin (Aspirin) 81 Mg Tab.chew, 81 MG PO DAILY Atorvastatin Calcium (Atorvastatin Calcium) 80 Mg Tablet, 80 MG PO DAILY Cholecalciferol (Vitamin D3) (Vitamin D3) 1,000 Unit Tablet, 2,000 UNITS PO DAILY Clopidogrel Bisulfate (Clopidogrel) 75 Mg Tablet, 75 MG PO DAILY Lisinopril (Lisinopril) 5 Mg Tablet, 5 MG PO DAILY Turmeric/Turmeric Root Extract (Turmeric 500 mg Capsule) 1 Each Capsule, 500 MG PO DAILY Allergies Coded Allergies: Contrast Media (Verified Allergy, Unknown, 06/27/18) Penicillins (Verified Allergy, Unknown, 06/27/18) Quinolones (Verified Allergy, Unknown, 06/27/18) GME ATTESTATION GME ATTESTATION My faculty preceptor for this patient encounter was physically present during the encounter and was fully available. All aspects of the patient interview, examination, medical decision making process, and medical care plan development were reviewed and approved by the faculty preceptor. The faculty preceptor is aware and concurs with the plan as stated in the body of this note and will attest to such by his/her cosignature. ATTENDING NOTE I examined Mr. Leonard, reviewed the findings, and discussed the plan with Dr. James as above as well as with Dr. Livingston. Briefly, Mr. Leonard is 68 yo vasculopath with extensive PVD s/p bilateral femoral bypasses that eventually failed as well as stents with poor compliance and follow up who presented from home reporting left groin and thigh acute pain without any recent trauma history, and not responsive to warm packs. In the ED, he was noted to have a large mass in the left groin with vascular flow on doppler US and Dr. Livingston was consulted who recommended a CTA with a suspicion for an infected bypass graft with disruption of the graft. He was taken to the OR, and while in pre-op had some Wenckebach that has since resolved, received intra-op vanc/cefepime and had an estimated blood loss of 150cc, had a noted pseudoaneurysm, significant scar tissue but ultimately no pus or abscess. On s peaking with Dr. Livingston post op, he was placed back on a regular diet, is to receive antibiotics coverage for 24h, and was recommended for a CIWA protocol given his history of daily alcohol consumption. SOWMYA JAMES DO Nov 19, 2019 00:05 WU MONTANA MD Nov 19, 2019 05:36
[2019-11-19] MEDS ORDERED: HEPARIN SOD (PORCINE) 5000UNITS/ML 1ML VIAL/SYRINGE As Ordered ONE (00:31)
[2019-11-19] MEDS ORDERED: ACETAMINOPHEN 1000MG 100ML IV BTL (OFIRMEV) (J0131 PER 10MG) As Ordered ONE (01:17)
[2019-11-19] MEDS ORDERED: SUGAMMADEX SODIUM 500 MG/5 ML VIAL (BRIDION) As Ordered ONE (01:20)
[2019-11-19] MEDS ORDERED: ONDANSETRON 4MG/2ML VIAL As Ordered ONE (01:20)
[2019-11-19] MEDS ORDERED: fentaNYL 100 MCG/2 ML INJECTION (J3010) As Ordered ONE (01:48)
[2019-11-19] MEDS ORDERED: oxyCODONE 5MG TAB PO PRN (03:45)
[2019-11-19] MEDS ORDERED: fentaNYL 100 MCG/2 ML INJECTION (J3010) IV PRN (03:45)
[2019-11-19] MEDS ORDERED: LR 1,000 ML IV SCH (03:45)
[2019-11-19] MEDS ORDERED: METOCLOPRAMIDE INJ 10MG/2ML VIAL (J2765 PER 1) IV PRN (03:45)
[2019-11-19] MEDS ORDERED: ONDANSETRON 4MG/2ML VIAL IV PRN ×2 (03:45)
[2019-11-19] MEDS ORDERED: diazePAM 5 MG TAB PO PRN (03:45)
[2019-11-19] MEDS ORDERED: HYDROMORPHONE HCL 0.5 MG/ 0.5 ML SYRINGE (J1170 PER 1) IV PRN (03:45)
--- NOTE | 2019-11-19 04:12 | ROOPDOC ---
[facility] Report Of Operation Report of Operation DATE OF PROCEDURE: 11/19/19 PREPROCEDURE DIAGNOSES: Left femoral artery pseudoaneurysm with pain and extravasation POSTPROCEDURE DIAGNOSES: Same PROCEDURE: 1. Redo open femoral artery exposure- 90 minutes due to severe scar tissue and pseudoaneurysm 2. Excision femoral artery pseudoaneurysm and graft 3. Femoral endarterectomy with patch angioplasty SURGEON: John Livingston MD ANESTHESIA: General anesthesia and local INDICATION FOR PROCEDURE: This is a very pleasant 68-year-old gentleman with severe end-stage bilateral lower extremity peripheral vascular disease status post multiple revascularizations at other institutions with other providers, and all failed. He presented at the ER today with complaints of acute pain in the left groin and thigh. After extensive workup, a CTA was performed and we noted an large pseudoaneurysm at the left femoral artery with active flow, partially thrombosed, no flow through the superficial femoral artery or the femoropopliteal bypass, and distal perfusion provided by the profunda and collaterals around the knee with single vessel tibial runoff. We suspected the pseudoaneurysm was due to infection, as the patient denies trauma or recent procedures. We therefore discussed the risks benefits and alternatives to a femoral exploration, possible removal of any graft, possible washout of any infection, possible revascularization of the femoral artery, possible patch repair of the artery, possible muscle flap closure, possible skin closure, possible wound VAC. The patient was extensively counseled about his high risk for surgery due to medical comorbidities and obesity and he was still agreeable to proceed. Informed consent was obtained. REPORT OF OPERATION: The patient was brought to the OR in stable condition and placed supine on the or table. His right groin and lower extremity were prepped and draped in a sterile fashion. A timeout was performed. Local anesthesia was administered to the skin and subcutaneous tissue over the right groin at the area of previous scar incision. An incision was made over the previous incision and carried down to the subcutaneous tissue with Bovie cautery. Care was taken to avoid the pseudoaneurysm so as not to disrupt it prior to getting proximal and distal control. We knew from the CT scan that we needed to get control of the common femoral artery proximal to the pseudoaneurysm, and the profunda lateral to the pseudoaneurysm. This dissection was extremely challenging. The patient had dense calcified scar tissue throughout the left groin. There was no portion of the dissection that was not completely scarred in. He had extensive collateral vessels which may dissection very tedious as we refer to Stavis many collaterals as possible for long-term perfusion. Eventually, with great care, we were able to get proximal control of the common femoral artery. We then identified the profunda laterally with a Doppler, dissected down to it, and followed it back to the pseudoaneurysm. A vessel loop was placed around the profunda. 5000 units of heparin was given and allowed to circulate, and additional heparin was given every hour to maintain anticoagulation. A clamp was placed proximally in the common femoral artery and the vessel was secured on the profunda. We then opened the pseudoaneurysm. Copious extensive amounts of old clot, chronic and acute, were removed. We also endarterectomized the artery in order to get a better idea of where the grafts and patches were anastomosed. All of the plaque and thrombus were sent for pathology. We took a culture within the pseudoaneurysm and sent this for culture and Gram stain. The Gram stain came back no organisms, which was encouraging. I did not note any odor around the pseudoaneurysm, nor did I note any purulence or gross signs of infection. We irrigated with copious amounts of heparinized saline and evacuated all clot. We then began arduous task of excising the capsule of the pseudoaneurysm which was completely scarred into the groin. I felt that if we did not remove this, it would become a seroma and cause problems soon after surgery. Therefore, we carefully dissected out the entire pseudoaneurysm capsule this was also sent for pathology. We then dissected out the femoral vessel and the profunda. There were multiple patched grafts and patches on the femoral artery, the majority of which we excised. The posterior wall of the artery was also graft, and could not be excised due to scar tissue and inability to free it from the surrounding tissue to do dense scar and fear of disrupting the profunda, which is his only outflow. Therefore, I left the posterior wall. The rest of the artery was endarterectomized. Good backbleeding was noted from the profundus. We then repaired the artery distally in the area I believe led to the pseudoaneurysm. This was oversewn with multiple layers Prolene. We then irrigated with heparinized saline and a Xenosure patch was anastomosed to the artery with a running Prolene suture. Before the final sutures are placed, we flushed inflow in the outflow of the artery and irrigated with heparinized saline. We then placed the final sutures and restored flow to the leg. Following this, Surgicel, Gelfoam, thrombin were used for hemostasis. All of the soft tissues were the capsule was excised were bleeding superficially, but with gentle pressure good hemostasis was achieved. We irrigated with copious amounts of saline. We then closed the deep layer over the femoral vessels with a running 2-0 Vicryl suture. We then closed the fascia and 3 layers with running Vicryl suture. We then approximated the deep dermal layer with 3-0 Vicryl suture. The skin was closed with skin sadie. 4 x 4's and Tegaderm were used to dress the wound after cleaning the skin thoroughly. The patient was allowed to awaken from anesthesia was taken to recovery in stable condition. Despite preop heart block, he tolerated the anesthesia very well. Despite this being an extremely difficult tedious dissection, he also tolerated the surgery well. ESTIMATED BLOOD LOSS: Approximately 150 mL. SPECIMEN: Left femoral artery thrombus and plaque sent for pathology COMPLICATIONS: None. PLAN: ICU postop due to mobitz Type II heart block preop. Monitor left groin for hematoma/bleeding. Distal revascularization not performed- only repaired the femoral artery so he still only has outflow through profunda to collaterals at the knee and single vessel tibial runoff. High-protein diet postop. We will DC bedrest and the Zambrano at 1 PM today. After that, activity as tolerated with assistance. The hospitalist will admit the patient, we appreciate their excellent care of this patient. JOHN LIVINGSTON MD Nov 19, 2019 04:12
[2019-11-19] MEDS ORDERED: LORazepam 2 MG TAB PO PRN (04:15)
[2019-11-19 04:36] VITALS: BP 166/84
[2019-11-19 04:46] LABS: HEMOGLOBIN 13.5 g/dl (13.5-17.5); MEAN CORPUSCULAR HEMOGLOBIN 32.1 pg (27.0-33.0); MEAN CORPUSCULAR HGB CONC 33.8 g/dl (32.0-36.5); PLATELET COUNT, AUTOMATED 205 10^3/uL (150-450); RED BLOOD COUNT 4.21 10^6/uL (4.30-6.10); WHITE BLOOD COUNT 9.7 10^3/uL (4.0-10.0)
[2019-11-19 05:03] LABS: BLOOD UREA NITROGEN 23 MG/DL (7-18); CALCIUM LEVEL 8.4 MG/DL (8.8-10.2); CARBON DIOXIDE LEVEL 23 MEQ/L (21-32); CHLORIDE LEVEL 108 MEQ/L (98-107); CREATININE FOR GFR 1.17 MG/DL (0.70-1.30); GLOMERULAR FILTRATION RATE > 60.0 (>42); GLUCOSE, FASTING 203 MG/DL (70-100); SODIUM LEVEL 139 MEQ/L (136-145)
[2019-11-19 05:05] VITALS: BP 164/94
[2019-11-19 06:00] VITALS: BP 156/93
[2019-11-19] MEDS ORDERED: FLUBLOK(EGG FREE)(QUAD)INFLUENZA VACC 0.5ML SYRINGE 18YRS & OLDER IM SCH (06:00)
[2019-11-19] MEDS ORDERED: VANCOMYCIN HCL 750 MG, VIAL MATE ADAPTER 1 EACH in D5W 250 ML IV SCH (06:00)
[2019-11-19] MEDS: PERCOCET 5MG/325MG TAB PO PRN ×2 (06:34→14:01)
[2019-11-19] MEDS ORDERED: VANCOMYCIN HCL 500 MG in D5W MINI-BAG PLUS 100 ML IV SCH (07:00)
--- NOTE | 2019-11-19 07:17 | IPNPDOC ---
Date Seen The patient was seen on 11/19/19. Progress Note SUBJECTIVE: patient was seen this morning at bedside. Doing well POD #0. Reports minimal discomfort in L groin. He does not endorse fevers, chills, chest pain, palpitations or SOB. He is alert and oriented x 3. OBJECTIVE PHYSICAL EXAMINATION: VITAL SIGNS: Please see below. General: NAD, comfortable HEENT: PERRLA, EOMI, sclerae clear Neck: supple, normal ROM, no JVD Resp: lungs CTAB, no wheeze, no rales, no crackles CVS: RRR, normal S1, S2, no murmurs Abdo: soft, no masses, no hepatosplenomegaly, BS+, no rebound tenderness. L groin operative site dressing mildly penetrated with serosanguinous contents, otherwise no swelling or induration noted. Minimal pain to palpation. Extremities: no edema, pulses 2+ MSK: no joint deformities, normal ROM Neuro: no focal neuro deficits, moving all 4 extremities Psych: calm, cooperative, AAO x 3 LABORATORY DATA, IMAGING STUDIES, MICROBIOLOGY: Please see below. DVT prophylaxis ordered?: y Assessment/Plan: Patient is a 68 year old male with pmhx of bilateral vascular surgeries in his legs, cardiac stents, and hx of RLE dvt presenting with L-thigh pain and imaging findings concerning for infected stents. #. L-Femoral artery hematoma vs infected graft -Broad spectrum antibiotics (vanc and cefepime) pending gram stain results from the OR. -BCx2, urine culture pending, COVID neg, lactic acid WNL - discussed with Dr. Livingston, negative gram stain in OR. C/w vanc,cefepime for 24 hours. - will wait for prelim blood cultures - cleared by Dr. Livingston to resume ASA/plavix and prophylactic lovenox. #. Heart block - reviewed EKG - 2nd degree AV block type 1 (Wenkenbach) - EKG confirmed by Dr. Murray, discussed. - patient does not have a lead caster helper as outpatient, given extensive CAD hx, would recommend outpatient referral. - as patient is asymptomatic, no need for further immediate cardiac intervention #. Alcohol use - CIWA protocol as a precaution #. CAD -Continue statin -resume ASA/plavix #. HTN -Continue home medications. #. Hx of medical non-adherence -Complicating care. DVT prophylaxis: lovenox CODE STATUS: FULL CODE Dispo: pending OR evaluation VS[facility]/I&O Vital Signs Date Time Temp Pulse Resp B/P (MAP) Pulse Ox O2 Delivery O2 Flow Rate FiO2 11/19/19 06:34 18 11/19/19 06:00 99 156/93 (114) 98 Nasal Cannula 2.0 11/19/19 05:05 98.0 I&O- Last 24 Hours up to 6 AM 11/19/19 06:00 Intake Total 1785 ml Output Total 500 ml Balance 1285 ml Laboratory Data 24H LABS Laboratory Tests 2 11/18/19 18:37: Immature Granulocyte % (Auto) 0.4, Neutrophils (%) (Auto) 71.3H, Lymphocytes (%) (Auto) 18.0L, Monocytes (%) (Auto) 9.3H, Eosinophils (%) (Auto) 0.7, Basophils (%) (Auto) 0.3, Neutrophils # (Auto) 6.9, Lymphocytes # (Auto) 1.7, Monocytes # (Auto) 0.9H, Eosinophils # (Auto) 0.1, Basophils # (Auto) 0.0, Nucleated Red Blood Cells % (auto) 0.0, Erythrocyte Sedimentation Rate 5, Prothrombin Time 13.4, Prothromb Time International Ratio 1.00, Activated Partial Thromboplast Time 31.3, Total Bilirubin 0.8, Direct Bilirubin 0.2, Aspartate Amino Transf (AST/SGOT) 58H, Alanine Aminotransferase (ALT/SGPT) 77, Alkaline Phosphatase 73, C-Reactive Protein, Quantitative < 0.30, Total Protein 6.7, Albumin 3.6, Alb umin/Globulin Ratio 1.2 11/18/19 18:40: Lactic Acid Level 1.2 11/18/19 18:47: POC Glucose (Misc Panel) 110H, POC Sodium (Misc Panel) 141, POC Potassium (Misc Panel) 4.0, POC Chloride (Misc Panel) 104, POC Total CO2 (Misc Panel) 25.0, POC Blood Urea Nitrogen (Misc Panel 18, POC Ionized Calcium (Misc Panel) 4.9, POC Creatinine (Misc Panel) 0.8, POC Hematocrit (Misc Panel) 42.0 11/18/19 21:19: Coronavirus (COVID-19)(PCR) NEGATIVE 11/19/19 04:29: Nucleated Red Blood Cells % (auto) 0.0, Anion Gap 8, Glomerular Filtration Rate > 60.0, Calcium Level 8.4L CBC/BMP Laboratory Tests 11/18/19 18:37 11/19/19 04:29 Microbiology Microbiology 11/19/19 Gram Stain - Final, Resulted 11/19/19 Abscess Culture, Resulted Pending 11/19/19 Anaerobic Culture, Resulted Pending 11/19/19 Urine Culture, Received Pending 11/18/19 Blood Culture, Received Pending 11/18/19 Blood Culture, Received Pending RENÉ HAGEN MD Nov 19, 2019 07:17
[2019-11-19] MEDS: MULTIVITAMINS/MINERALS THERAP 1 TAB PO SCH (08:08)
[2019-11-19] MEDS: THIAMINE 100 MG TAB PO SCH ×2 (08:08→20:13)
[2019-11-19] MEDS: FOLIC ACID 1 MG TAB PO SCH (08:08)
[2019-11-19] MEDS: amLODIPine 5 MG TAB PO SCH (08:09)
[2019-11-19] MEDS: ATORVASTATIN 20 MG TAB PO SCH (08:09)
[2019-11-19] MEDS ORDERED: DAKIN'S 0.25% HALF-STRENGTH SOLN 480 ML TOP SCH (09:00)
[2019-11-19] MEDS: CEFEPIME HCL 1 GM in D5W MINI-BAG PLUS 50 ML IV SCH ×2 (11:32→23:17)
[2019-11-19 11:40] VITALS: BP 120/69
[2019-11-19 14:00] VITALS: BP 126/71
[2019-11-19] MEDS: VANCOMYCIN HCL 1,000 MG, VIAL MATE ADAPTER 1 EACH in D5W 250 ML IV SCH (17:51)
--- NOTE | 2019-11-19 19:48 | IPNPDOC ---
Date Seen The patient was seen on 11/19/19. Progress Note Patient seen and examined status post a left extensive femoral exploration last night into this morning, with excision of multiple failed grafts and patches on the left femoral artery, biologic patch repair of the artery, still awaiting formal cultures from the urine and the groin. Intra-Op, Gram stain was negative for bacteria, we are hopeful that the patient's large pseudoaneurysm was due to failure of old graft material and multiple patches rather than infection. So far, his white count has remained normal his vitals are stable and he is afebrile. This is all good signs. He says his pain is controlled and he is doing fairly well today but he has not been out of bed yet. His Zambrano is out but he has not had any urine yet and I did discuss with the nurse that he has straight cath orders if needed. It is okay for him to get out of bed to try to urinate if he would like. On exam his left groin incision is clean dry and intact with a little bit of serosanguineous drainage on the dressing. The incision was cleaned thoroughly. No active dressing or serous drainage was noted. We had to dissected through extensive dense scar tissue, very chronic for multiple reduced surgeries in the left groin, and this will be a challenge to heal. Unfortunately, the patient is at high risk for groin wound dehiscence and I discussed this with him in today at length. He needs to be very careful with the incision. Showers daily, dry dressings daily, loose cotton clothing, no heavy working strenuous exercise or lifting greater than 5-10 pounds for 2 weeks. He needs to eat as much protein is possible to help with wound healing. I will continue to stress this to him daily. I also talk to the patient about his distal perfusion. We did not do a redo bypass, as he has had multiple failed bypasses in the past, and I did not think the added anesthesia time would be worth it since it was unlikely the bypass would be successful after so many failures. He does have good collateral flow down below the knee from the profunda, as well as single vessel runoff to the foot and the foot is warm with a strong signal at the DP. I could not get a signal at the posterior tibial. This is chronic. We will restart his aspirin Plavix and Lovenox for DVT prophylaxis today. We will start mobilizing him more tomorrow. It is okay to transfer out of the ICU from a vascular standpoint if he is stable from a hemodynamic standpoint. Depending on his culture results, we may be able to discontinue the broad-spectrum antibiotics tomorrow. We will plan for discharge in the next few days if his cultures are negative and his groin is healing well. We appreciate Her treatable chest pain the care of this patient. VS, I&O, 24H, Fishbone Vital Signs/I&O Vital Signs Date Time Temp Pulse Resp B/P (MAP) Pulse Ox O2 Delivery O2 Flow Rate FiO2 11/19/19 14:31 18 Room Air 11/19/19 14:00 99.5 102 126/71 (89) 94 11/19/19 07:04 2.0 I&O- Last 24 Hours up to 6 AM 11/19/19 06:00 Intake Total 1785 ml Output Total 500 ml Balance 1285 ml Laboratory Data 24H LABS Laboratory Tests 2 11/18/19 21:19: Coronavirus (COVID-19)(PCR) NEGATIVE 11/19/19 04:29: Nucleated Red Blood Cells % (auto) 0.0, Anion Gap 8, Glomerular Filtration Rate > 60.0, Calcium Level 8.4L CBC/BMP Laboratory Tests 11/19/19 04:29 Microbiology Microbiology 11/19/19 Gram Stain - Final, Resulted 11/19/19 Abscess Culture, Resulted Pending 11/19/19 Anaerobic Culture, Resulted Pending 11/19/19 Urine Culture, Received Pending 11/18/19 Blood Culture - Preliminary, Resulted No growth after 24 hours . All specim... 11/18/19 Blood Culture - Preliminary, Resulted No growth after 24 hours . All specim... JOHN NICHOLSON MD Nov 19, 2019 19:48
[2019-11-19 20:00] VITALS: BP 118/63
[2019-11-19] MEDS: ENOXAPARIN 40MG/0.4ML SYRINGE (J1650 PER 10MG) SC SCH (20:13)
[2019-11-20] VITALS: BP 114/59
[2019-11-20 03:55] VITALS: BP 119/55
[2019-11-20 05:36] LABS: HEMATOCRIT 32.3 % (42.0-52.0); MEAN CORPUSCULAR HEMOGLOBIN 32.3 pg (27.0-33.0); MEAN CORPUSCULAR HGB CONC 33.1 g/dl (32.0-36.5); MEAN CORPUSCULAR VOLUME 97.6 fl (80.0-96.0); PLATELET COUNT, AUTOMATED 175 10^3/uL (150-450); RED BLOOD COUNT 3.31 10^6/uL (4.30-6.10); WHITE BLOOD COUNT 11.4 10^3/uL (4.0-10.0)
[2019-11-20 05:41] LABS: HEMOGLOBIN 10.7 g/dl (13.5-17.5)
[2019-11-20 05:51] LABS: BLOOD UREA NITROGEN 26 MG/DL (7-18); CALCIUM LEVEL 8.4 MG/DL (8.8-10.2); CARBON DIOXIDE LEVEL 28 MEQ/L (21-32); CHLORIDE LEVEL 107 MEQ/L (98-107); CREATININE FOR GFR 0.94 MG/DL (0.70-1.30); GLOMERULAR FILTRATION RATE > 60.0 (>42); GLUCOSE, FASTING 131 MG/DL (70-100); POTASSIUM SERUM 3.9 MEQ/L (3.5-5.1); SODIUM LEVEL 137 MEQ/L (136-145); VANCOMYCIN LEVEL TROUGH 11.1 UG/ML (10.0-20.0)
[2019-11-20 06:00] VITALS: BP 116/57
[2019-11-20] MEDS: VANCOMYCIN HCL 1,000 MG, VIAL MATE ADAPTER 1 EACH in D5W 250 ML IV SCH ×2 (06:06→18:14)
--- NOTE | 2019-11-20 07:24 | IPNPDOC ---
Date Seen The patient was seen on 11/20/19. Progress Note SUBJECTIVE: patient was seen this morning at bedside. Doing well POD #1. Reports minimal discomfort in L groin. He does not endorse fevers, chills, chest pain, palpitations or SOB. He is alert and oriented x 3. OBJECTIVE PHYSICAL EXAMINATION: VITAL SIGNS: Please see below. General: NAD, comfortable HEENT: PERRLA, EOMI, sclerae clear Neck: supple, normal ROM, no JVD Resp: lungs CTAB, no wheeze, no rales, no crackles CVS: RRR, normal S1, S2, no murmurs Abdo: soft, no masses, no hepatosplenomegaly, BS+, no rebound tenderness. L groin operative site dressing mildly penetrated with serosanguinous contents, otherwise no swelling or induration noted. Minimal pain to palpation. Extremities: no edema, pulses 2+ MSK: no joint deformities, normal ROM Neuro: no focal neuro deficits, moving all 4 extremities Psych: calm, cooperative, AAO x 3 LABORATORY DATA, IMAGING STUDIES, MICROBIOLOGY: Please see below. DVT prophylaxis ordered?: y Assessment/Plan: Patient is a 68 year old male with pmhx of bilateral vascular surgeries in his legs, cardiac stents, and hx of RLE dvt presenting with L-thigh pain and imaging findings concerning for infected stents. #. L-Femoral artery graft repair - POD #1 s/p excision of multiple failed grafts, patches on L Fem art, biologic path repair - mild rise in WBC noted, 11.4. Afebrile overnight. VSS. - Broad spectrum antibiotics (vanc and cefepime) pending gram stain results from the OR. - will wait for prelim blood cultures - cleared by Dr. Livingston to resume ASA/plavix and prophylactic lovenox. - avoid strenuous activity, ok to leave bed to bathroom. - encourage high protein diet. #. Heart block - reviewed EKG - 2nd degree AV block type 1 (Wenkenbach) - EKG confirmed by Dr. Murray, discussed. - patient does not have a vacuum caster as outpatient, given extensive CAD hx, would recommend outpatient referral. - as patient is asymptomatic, no need for further immediate cardiac intervention #. Alcohol use - CIWA protocol as a precaution #. CAD -Continue statin -resume ASA/plavix #. HTN -Continue home medications. #. Hx of medical non-adherence -Complicating care. DVT prophylaxis: lovenox CODE STATUS: FULL CODE Dispo: pending blood cultures. VS, I&O, 24H, Fishbone Vital Signs/I&O Vital Signs Date Time Temp Pulse Resp B/P (MAP) Pulse Ox O2 Delivery O2 Flow Rate FiO2 11/20/19 00:00 98.0 92 16 114/59 (77) 94 Room Air 11/19/19 07:04 2.0 I&O- Last 24 Hours up to 6 AM 11/20/19 06:00 Intake Total 1510 ml Output Total 955 ml Balance 555 ml Laboratory Data 24H LABS Laboratory Tests 2 11/20/19 05:17: Nucleated Red Blood Cells % (auto) 0.0, Anion Gap 2L, Glomerular Filtration Rate > 60.0, Calcium Level 8.4L, Vancomycin Level Trough 11.1 CBC/BMP Laboratory Tests 11/20/19 05:17 Microbiology Microbiology 11/19/19 Gram Stain - Final, Resulted 11/19/19 Abscess Culture, Resulted Pending 11/19/19 Anaerobic Culture, Resulted Pending 11/19/19 Urine Culture, Received Pending 11/18/19 Blood Culture - Preliminary, Resulted No growth after 24 hours . All specim... 11/18/19 Blood Culture - Preliminary, Resulted No growth after 24 hours . All specim... RENÉ HAGEN MD Nov 20, 2019 07:24
[2019-11-20] MEDS: FOLIC ACID 1 MG TAB PO SCH (07:57)
[2019-11-20] MEDS: ASPIRIN 81 MG CHEW TABLET PO SCH (07:57)
[2019-11-20] MEDS: amLODIPine 5 MG TAB PO SCH (07:58)
[2019-11-20] MEDS: PERCOCET 5MG/325MG TAB PO PRN ×3 (07:58→20:10)
[2019-11-20] MEDS: THIAMINE 100 MG TAB PO SCH ×2 (07:58→20:09)
[2019-11-20] MEDS: ATORVASTATIN 20 MG TAB PO SCH (07:59)
[2019-11-20] MEDS: CLOPIDOGREL 75 MG TAB PO SCH (07:59)
[2019-11-20] MEDS: MULTIVITAMINS/MINERALS THERAP 1 TAB PO SCH (07:59)
[2019-11-20] MEDS ORDERED: FLUBLOK(EGG FREE)(QUAD)INFLUENZA VACC 0.5ML SYRINGE 18YRS & OLDER IM ONE (09:00)
--- NOTE | 2019-11-20 10:20 | IPNPDOC ---
Text Note Date of Service The patient was seen on 11/20/19. NOTE Vascular Surgery Dr Livingston. The pt is POD 1 status post a left extensive femoral exploration, with excision of multiple failed grafts and patches on the left femoral artery, biologic patch repair of the artery. Redo bypass was not done, as he has had multiple failed bypasses in the past, and did not think the added anesthesia time would be worth it since it was unlikely the bypass would be successful after so many failures. He does have good collateral flow down below the knee from the profunda, as well as single vessel runoff to the foot Cultures pending from the urine and the groin. Intra-Op, Gram stain was negative for bacteria, hopeful that the patient's large pseudoaneurysm was due to failure of old graft material and multiple patches rather than infection. White count 11.4 this AM afebrile. Tmax 99.1 Pt states pain is controlled and he is doing fairly well today but he has not been out of bed yet. On exam his left groin incision is dry and intact with small amount of serosanguineous drainage on the dressing. The incision was cleaned thoroughly. No active dressing or serous drainage was noted. Dry dressing re applied. There is strong doppler signal over the left DP. Unable to obtain PT, no change/chronic. Plan for Showers daily, dry dressings daily, loose cotton clothing, no heavy working strenuous exercise or lifting greater than 5-10 pounds for 2 weeks. Encourage protein intake to help with wound healing. ASA/Plavix/Statin. Continue antibiotics for now pending cultures. We will plan for discharge in the next few days if his cultures are negative and his groin is healing well. VS,Fishbone, I+O VS, Fishbone, I+O Laboratory Tests 11/20/19 05:17 Vital Signs Date Time Temp Pulse Resp B/P (MAP) Pulse Ox O2 Delivery O2 Flow Rate FiO2 11/20/19 07:58 20 11/20/19 07:58 115/68 11/20/19 06:00 98.3 73 92 Room Air 11/19/19 07:04 2.0 I&O- Last 24 Hours up to 6 AM 11/20/19 05:59 Intake Total 1750 ml Output Total 1105 ml Balance 645 ml Bonnie Morrison Nov 20, 2019 10:20
[2019-11-20] MEDS: CEFEPIME HCL 1 GM in D5W MINI-BAG PLUS 50 ML IV SCH ×2 (12:44→23:59)
[2019-11-20 14:00] VITALS: BP 118/72
[2019-11-20] MEDS: ENOXAPARIN 40MG/0.4ML SYRINGE (J1650 PER 10MG) SC SCH (20:10)
[2019-11-20 22:00] VITALS: BP_SYST 121; BP_SYST 128; BP_DIAS 60; BP_DIAS 68
[2019-11-21 05:29] LABS: HEMOGLOBIN 10.8 g/dl (13.5-17.5); MEAN CORPUSCULAR HGB CONC 32.7 g/dl (32.0-36.5); MEAN CORPUSCULAR VOLUME 97.9 fl (80.0-96.0); PLATELET COUNT, AUTOMATED 174 10^3/uL (150-450); RED BLOOD COUNT 3.37 10^6/uL (4.30-6.10); WHITE BLOOD COUNT 10.1 10^3/uL (4.0-10.0)
[2019-11-21 05:46] LABS: BLOOD UREA NITROGEN 23 MG/DL (7-18); CALCIUM LEVEL 8.4 MG/DL (8.8-10.2); CARBON DIOXIDE LEVEL 31 MEQ/L (21-32); CHLORIDE LEVEL 105 MEQ/L (98-107); GLOMERULAR FILTRATION RATE > 60.0 (>42); GLUCOSE, FASTING 116 MG/DL (70-100); POTASSIUM SERUM 4.2 MEQ/L (3.5-5.1); SODIUM LEVEL 139 MEQ/L (136-145); VANCOMYCIN LEVEL TROUGH 11.7 UG/ML (10.0-20.0)
[2019-11-21 06:00] VITALS: BP 170/92
[2019-11-21] MEDS: VANCOMYCIN HCL 1,000 MG, VIAL MATE ADAPTER 1 EACH in D5W 250 ML IV SCH (06:10)
[2019-11-21] MEDS: PERCOCET 5MG/325MG TAB PO PRN (06:15)
[2019-11-21] MEDS: CLOPIDOGREL 75 MG TAB PO SCH (09:17)
[2019-11-21] MEDS: MULTIVITAMINS/MINERALS THERAP 1 TAB PO SCH (09:17)
[2019-11-21] MEDS: ASPIRIN 81 MG CHEW TABLET PO SCH (09:17)
[2019-11-21] MEDS: FOLIC ACID 1 MG TAB PO SCH (09:17)
[2019-11-21 09:18] VITALS: BP 170/92
[2019-11-21] MEDS: THIAMINE 100 MG TAB PO SCH (09:18)
[2019-11-21] MEDS: amLODIPine 5 MG TAB PO SCH (09:18)
[2019-11-21] MEDS: ATORVASTATIN 20 MG TAB PO SCH (09:18)
[2019-11-21] MEDS ORDERED: PERCOCET PO (11:24)
--- NOTE | 2019-11-21 12:49 | IPNPDOC ---
Text Note Date of Service The patient was seen on 11/21/19. NOTE Vascular surgery Dr. Livingston The pt is POD 2 status post a left extensive femoral exploration, with excision of multiple failed grafts and patches on the left femoral artery, biologic patch repair of the artery. Redo bypass was not done, as he has had multiple failed bypasses in the past, and did not think the added anesthesia time would be worth it since it was unlikely the bypass would be successful after so many failures. He does have good collateral flow down below the knee from the profunda, as well as single vessel runoff to the foot Urine culture negative and the groin culture negative. Intra-Op, Gram stain was negative for bacteria, this is consistent that the large pseudoaneurysm was due to failure of old graft material and multiple patches rather than infection. White count 10.1 this AM, slight downward trend. afebrile. Pt states pain is controlled and he is currently out of bed to the chair. On exam his left groin incision is dry and intact with small amount of serosanguineous drainage on the dressing. The incision was cleaned thoroughly. No active dressing or serous drainage was noted. Dry dressing re applied. Plan for Showers daily, dry dressings daily. It has been reviewed with the patient that he should not change his dressing after using the restroom. In the morning, remove dressings and take shower. Patent dry with a clean towel, reapply dry dressing daily. Loose cotton clothing, no heavy working strenuous exercise or lifting greater than 5-10 pounds for 2 weeks. Encourage protein intake to help with wound healing. ASA/Plavix/Statin. The patient should return to the office within 5-7 days to recheck the patient's left groin wound and perfusion. Plan to leave sadie in place for 17-21 days. Possibly discharge later today the patient is up out of bed and ambulating without difficulty or pain. VS,Fishbone, I+O VS, Fishbone, I+O Laboratory Tests 11/21/19 05:13 Vital Signs Date Time Temp Pulse Resp B/P (MAP) Pulse Ox O2 Delivery O2 Flow Rate FiO2 11/21/19 09:18 85 170/92 11/21/19 06:45 16 Room Air 11/21/19 06:00 99.3 91 11/19/19 07:04 2.0 I&O- Last 24 Hours up to 6 AM 11/21/19 06:00 Intake Total 970 ml Balance 970 ml Bonnie Morrison Nov 21, 2019 12:49
--- NOTE | 2019-11-21 16:25 | DS.PDOC ---
Discharge Summary General Date of Admission Nov 18, 2019 at 22:15 Date of Discharge 11/21/19 Attending Physician: Deidre Mon MD Specialist/Consultants Involve: JOHN LIVINGSTON MD Discharge Summary HISTORY OF PRESENT ILLNESS: Patient is a 68 year old male with significant PMHx of multiple lower extremity vascular surgeries presenting with chief complaint of left thigh pain since midnight on 11/18/2019 that began suddenly waking him from sleep. He put a heating pad on the area and on waking up in the morning noted an area of redness overlying where he had the heating pack. He denies any history of overt trauma stating only he was using a jackhammer this past Wednesday but does not recall any injury with it, he otherwise denies any recent or current complaints at this time, see ROS. His pain did not resolve during the day which brought him to the emergency department In the ED his work up was remarkable for venous duplex showing hypoechoic solid appearing mass in the left inguinal region with CTA showing soft tissue mas in left common femoral artery. Vascular surgery was contacted, reviewed the imaging which was concerning for possible infected stent, and informed ED provider and hospital of plans to take patient to the [facility] with hospitalist service admitting for medical management. Of note, he was seen at [facility] ED in July 2019 for left leg pain and was found to have a heterogenous complex collection in his left groin and arterial occlusions with instructions to follow up with Dr. Livingston in 1 week and failed to do so. He has a history of vascular repair at [facility] and [facility] with eventual failed to follow up with these places as well. HOSPITAL COURSE: Patient was admitted and vascular surgery was consulted. On 11/19/19 patient had redo open femoral artery exposure- 90 minutes due to severe scar tissue and pseudoaneurysm, excision femoral artery pseudoaneurysm and graft, femoral endarterectomy with patch angioplasty. Patient tolerated procedure well. Left femoral artery thrombus and plaque were sent for culture, later to return neg for infection. Prophylactic abx was stopped 11/21/19. He performed i ndependently with physical therapy and it was decided to discharge home 11/21/19. Patient was given oxycodone/acetaminophen for left groin pain, as it was uncontrolled only with ambulation or movement. He was discharged home without complaints of chest pain, shortness of breath, n/v/d, fever, chills, urinary incontinence, numbness, tingling. He has follow up with both vascular surgery and PCP after discharge. PAST MEDICAL HISTORY: Hx of [place] CAD Atherosclerosis of the [place] arteries with failure non-autologous bypass grafts bilateral femorals HTN Hypercholesterolemia Hx of MALACHI no longer on CPAP s/p gastric bypass hx of nephrolithiasis Hx of RLE DVT medical non-compliance PAST SURGICAL HISTORY: Cardiac stentsx2 Bilateral femoral bypass grafts iliac stents gastric bypass surgery colonoscopy (2018)- tubular adenoma on pathology Colonoscopy (2015)-tubulovillous adenoma on pathology R-leg fx repair SOCIAL HISTORY: Denies tobacco use, 2-3 alcoholic beverages/day, no illicit drugs. FAMILY HISTORY: Denies family history of blood clots, UT, or cancer ALLERGIES: Please see below. DISCHARGE MEDICATIONS: Please see below. PHYSICAL EXAMINATION: VITAL SIGNS: See below GENERAL: NAD, resting in bed HEENT: NC, AT, EOMI, no scleral icterus, moist mucous membranes, no pharyngeal erythema. NECK: No cervical or supraclavicular lymphadenopathy. No JVD. CARDIOVASCULAR: RRR, systolic murmur noted, no gallops or rubs. LUNGS: CTAB with full breath sounds, no wheezes, crackles, or rhonchi. ABDOMEN: Soft, non-tender, non-distended, bowel sounds present. No hepatosplenomegaly. No masses or eccymosis. No CVA tenderness. EXTREMITIES: No swelling in bilateral extremities, pulses in PT/DP arteries, legs are warm to palpation. : Deferred SKIN: Left groin incision stapled shut, appears well healing, nonsuppurative, no increased erythema but tender to touch NEUROLOGICAL: No focal or sensory deficits. CN II-XII grossly intact. PSYCHIATRIC: Normal mood and affect. LABORATORY DATA: Please see below ASSESSMENT: Patient is a 68 year old male with pmhx of bilateral vascular surger ies in his legs, cardiac stents, and hx of RLE dvt POD #2 for left femoral artery graft repair, infected graft ruled out. PLAN: #. L-Femoral artery graft repair - POD #2 s/p excision of multiple failed grafts, patches on L Fem art, biologic path repair - WBC 10.1, afebrile overnight. VSS. - Cultures neg from OR, broad spectrum antibiotics (vanc and cefepime) stopped due to infected graft being ruled out - C/w ASA/plavix, avoid strenuous activity per vascular surgery, high protein diet. - f/u with Dr. Livingston as o/p #. 2nd degree AV block type 1 (Wenkenbach) - Currently HD stable, NSR. - EKG confirmed by Dr. Murray, discussed. - patient does not have a frog catcher as outpatient, given extensive CAD hx, would recommend outpatient referral. - as patient is asymptomatic, no need for further immediate cardiac intervention #. Alcohol use - No sign/symptoms of withdrawl this hospitalization - CIWA protocol as a precaution #. CAD - Continue statin, ASA/plavix - recommend cardiology referral o/p #. HTN -VS stable -Continue home medications. DISPOSITION: Discharged home today with f/u with PCP and vascular surgery as o/p. Wound care instructions given. TIME SPENT ON DISCHARGE: Greater than 30 minutes. Vital Signs/I&Os Vital Signs Date Time Temp Pulse Resp B/P (MAP) Pulse Ox O2 Delivery O2 Flow Rate FiO2 11/21/19 09:18 85 170/92 11/21/19 06:45 16 Room Air 11/21/19 06:00 99.3 91 11/19/19 07:04 2.0 I&O- Last 24 Hours up to 6 AM 11/21/19 06:00 Intake Total 970 ml Balance 970 ml Laboratory Data Labs 24H Laboratory Tests 2 11/21/19 05:13: Nucleated Red Blood Cells % (auto) 0.0, Anion Gap 3L, Glomerular Filtration Rate > 60.0, Calcium Level 8.4L, Vancomycin Level Trough 11.7 CBC/BMP Laboratory Tests 11/21/19 05:13 Microbiology Microbiology 11/19/19 Gram Stain - Final, Complete 11/19/19 Abscess Culture - Final, Complete 11/19/19 Anaerobic Culture - Final, Complete 11/19/19 Urine Culture - Final, Complete 11/18/19 Blood Culture - Preliminary, Resulted No Growth after 48 hours. All Specime... 11/18/19 Blood Culture - Preliminary, Resulted No Growth after 48 hours. All Specime... Discharge Medications Scheduled Amlodipine Besylate (Amlodipine Besylate) 5 Mg Tablet, 5 MG PO DAILY, (Reported) Aspirin (Aspirin) 81 Mg Tab.chew, 81 MG PO DAILY, (Reported) Atorvastatin Calcium (Atorvastatin Calcium) 80 Mg Tablet, 80 MG PO DAILY, (Reported) Cholecalciferol (Vitamin D3) (Vitamin D3) 1,000 Unit Tablet, 2,000 UNITS PO DAILY, (Reported) Clopidogrel Bisulfate (Clopidogrel) 75 Mg Tablet, 75 MG PO DAILY, (Reported) Lisinopril (Lisinopril) 5 Mg Tablet, 5 MG PO DAILY, (Reported) Scheduled PRN Oxycodone/Acetaminophen (Oxycodone-Acetaminophen 5-325) 1 Each Tablet, 1 TAB PO Q6HP PRN for MODERATE/SEVERE PAIN (PS 5-10) Allergies Coded Allergies: Contrast Media (Verified Allergy, Unknown, 06/27/18) Penicillins (Verified Allergy, Unknown, 06/27/18) Quinolones (Verified Allergy, Unknown, 06/27/18) Deidre Mon MD Nov 21, 2019 16:25
== END 2019-11-21 13:24 | disposition home or self-care (01) | DRG 253 ==
LOC: M ED 14:47 → M ED INP 22:15 → M ICU 11-19 04:48 → M MSPAV 11-20 03:51
PROVIDERS: ADMIT Internal Medicine; ATTEND Internal Medicine
PROC: 04CL0ZZ Extirpation of Matter from Left Femoral Artery, Open Approach (ICD-10-PCS; principal; 2019-11-19)
PROC: 04BL0ZZ Excision of Left Femoral Artery, Open Approach (ICD-10-PCS; 2019-11-19)
PROC: 04UL0KZ Supplement Left Femoral Artery with Nonautologous Tissue Substitute, Open Approach (ICD-10-PCS; 2019-11-19)
DX: T82.868A Thrombosis due to vascular prosthetic devices, implants and grafts, initial encounter (principal); T82.312A Breakdown (mechanical) of femoral arterial graft (bypass), initial encounter; Y83.1 Surgical operation with implant of artificial internal device as the cause of abnormal reaction of the patient, or of later complication, without mention of misadventure at the time of the procedure; I44.1 Atrioventricular block, second degree; F10.10 Alcohol abuse, uncomplicated; I25.10 Atherosclerotic heart disease of native coronary artery without angina pectoris; I25.2 Old myocardial infarction; I10 Essential (primary) hypertension; I70.50 Unspecified atherosclerosis of nonautologous biological bypass graft(s) of the extremities; E78.00 Pure hypercholesterolemia, unspecified; K59.00 Constipation, unspecified; Z86.718 Personal history of other venous thrombosis and embolism; Z91.19 Patient's noncompliance with other medical treatment and regimen; Z95.5 Presence of coronary angioplasty implant and graft; Z95.828 Presence of other vascular implants and grafts; Z79.82 Long term (current) use of aspirin; Z79.02 Long term (current) use of antithrombotics/antiplatelets; Z79.899 Other long term (current) drug therapy; Z88.0 Allergy status to penicillin; Z88.1 Allergy status to other antibiotic agents; Z91.041 Radiographic dye allergy status; Z87.442 Personal history of urinary calculi; Z98.84 Bariatric surgery status; Z86.010 Personal history of colon polyps

== ENCOUNTER 2019-11-23 16:23 | Emergency (ER) | payer MEDICARE ==
[~2019-11-23] VITALS: Ht 177.8 cm; Wt 90.9 kg
[~2019-11-23 16:23] MED LIST changes: +D31000TA2 PO; +PERCOCET PO; +TURM500C PO
--- NOTE | 2019-11-23 16:58 | REPVR ---
PROCEDURE INFORMATION: Exam: CT Head Without Contrast Exam date and time: 11/23/2019 4:33 PM Age: 69 years old Clinical indication: Syncope and collapse TECHNIQUE: Imaging protocol: Computed tomography of the head without contrast. Radiation optimization: All CT scans at this facility use at least one of these dose optimization techniques: automated exposure control; mA and/or kV adjustment per patient size (includes targeted exams where dose is matched to clinical indication); or iterative reconstruction. COMPARISON: No relevant prior studies available. FINDINGS: Brain: There is no acute cortical infarction, intracranial hemorrhage or mass.There is mild diffuse heterogeneity of the white matter, most consistent with microangiopathy. There are probable prior lacunar infarctions right caudate head, bilateral lentiform nuclei, anterior limb right internal capsule. Calcifications are seen within several sulci which can be seen with cysticercosis or emboli among other etiologies. Cerebral ventricles: No significant ventriculomegaly. Bones/joints: Unremarkable. No acute fracture. Paranasal sinuses: There is no significant mucoperiosteal thickening or air-fluid levels in the paranasal sinuses. Mastoid air cells: The middle ear cavities and mastoid air cells are clear. Vasculature: Atherosclerosis. Soft tissues: Unremarkable. IMPRESSION: No acute intracranial findings. Electronically signed by: Taylor Capellan On 11/23/2019 16:57:29 PM
[2019-11-23 17:04] LABS: VENOUS BASE EXCESS 3.4 (-2.0-2.0); VENOUS HCO3 29.7 MEQ/L (23.0-27.0); VENOUS O2 SATURATION 51.1 % (60.0-80.0); VENOUS PARTIAL PRESSURE CO2 53.1 mmHg (38.0-50.0); VENOUS PARTIAL PRESSURE O2 28.4 mmHg (30.0-50.0); VENOUS PH 7.366 UNITS (7.330-7.430); VENOUS STANDARD HCO3 26.4 MEQ/L; VENOUS TOTAL CO2 31.4 MEQ/L (24.0-28.0)
[2019-11-23 17:09] LABS: BASO # 0.1 10^3/uL (0.0-0.2); BASO % 0.6 % (0.0-1.0); EOS # 0.2 10^3/uL (0.0-0.5); EOS % 2.4 % (0.0-3.0); HEMATOCRIT 37.3 % (42.0-52.0); HEMOGLOBIN 11.9 g/dl (13.5-17.5); LYMPH # 1.8 10^3/uL (1.5-5.0); LYMPH % 19.9 % (24.0-44.0); MEAN CORPUSCULAR HEMOGLOBIN 31.6 pg (27.0-33.0); MEAN CORPUSCULAR HGB CONC 31.9 g/dl (32.0-36.5); MEAN CORPUSCULAR VOLUME 99.2 fl (80.0-96.0); MONO % 10.6 % (0.0-5.0); NEUTROPHILS # 5.9 10^3/uL (1.5-8.5); NEUTROPHILS % 65.4 % (36.0-66.0); PLATELET COUNT, AUTOMATED 232 10^3/uL (150-450); RED BLOOD COUNT 3.76 10^6/uL (4.30-6.10)
[2019-11-23 17:23] LABS: INR 0.88; PROTHROMBIN TIME 12.2 SECONDS (12.5-14.3)
[2019-11-23 17:39] LABS: FREE T4 1.04 NG/DL (0.76-1.46); MAGNESIUM LEVEL 2.4 MG/DL (1.8-2.4); THYROID STIMULATING HORMONE 0.743 uIU/ML (0.358-3.740)
[2019-11-23] MEDS ORDERED: NS 500 ML IV ONE (18:30)
[2019-11-23 18:57] LABS: BLOOD UREA NITROGEN 29 MG/DL (7-18); CALCIUM LEVEL 9.2 MG/DL (8.8-10.2); CARBON DIOXIDE LEVEL 29 MEQ/L (21-32); CHLORIDE LEVEL 104 MEQ/L (98-107); CK-MB VALUE MASS 1.1 NG/ML (<3.6); CPK CREATINE PHOSPHOKINASE 650 U/L (39-308); CREATININE FOR GFR 1.17 MG/DL (0.70-1.30); ETHYL ALCOHOL (ETHANOL) < 0.003 % (0.000-0.010); GLOMERULAR FILTRATION RATE > 60.0 (>42); GLUCOSE, FASTING 118 MG/DL (70-100); MB/CK RELATIVE INDEX 0.17 (< OR =4); POTASSIUM SERUM 4.2 MEQ/L (3.5-5.1); SODIUM LEVEL 139 MEQ/L (136-145); TROPONIN I < 0.02 NG/ML (< 0.10)
[2019-11-23] MEDS ORDERED: PERCOCET 5MG/325MG TAB PO ONE (19:00)
[2019-11-23 20:05] VITALS: BP 124/68
--- NOTE | 2019-11-23 20:59 | ECGEPIP ---
[facility] - ED Test Date: 2019-11-23 Pat Name: STEVEN RICHARDSON Department: Room: - Gender: Male Compounding Scaler: sam : 1950 Requested By: Mónica Tovar Order Number: [id number] Reading MD: Mónica Tovar Measurements Intervals [place] Rate: 53 P: NE: 0 QRS: -16 QRSD: 90 T: 34 QT: 379 QTc: 356 Interpretive Statements SINUS BRADYCARDIA WITH 2ND DEGREE AV BLOCK, MOBITZ TYPE I SEPTAL MYOCARDIAL INFARCTION, PROBABLY OLD DECREASED RATE 06/27/18 Electronically Signed on 11-23-2019 20:58:47 EDT by Mónica Tovar
== END 2019-11-23 20:10 | disposition home or self-care (01) ==
LOC: M ED 16:23
DX: R55 Syncope and collapse (principal); R11.2 Nausea with vomiting, unspecified; R94.31 Abnormal electrocardiogram [ECG] [EKG]; I25.10 Atherosclerotic heart disease of native coronary artery without angina pectoris; I25.2 Old myocardial infarction; F10.10 Alcohol abuse, uncomplicated; I70.90 Unspecified atherosclerosis; Z88.0 Allergy status to penicillin; Z88.8 Allergy status to other drugs, medicaments and biological substances; Z91.041 Radiographic dye allergy status; Z79.899 Other long term (current) drug therapy
CPT/HCPCS: 36415; 70450; 80048; 82550; 82553; 82803; 83735; 84439; 84443; 84484; 85025; 85610; 93005; 93041; 94760; 96360; 96361; 99285; G0480

== ENCOUNTER → 2019-12-14 | Outpatient (CLI) | payer MEDICARE ==
[~2019-12-14] MED LIST changes: +ASPI-161 PO; +BACI1CAP PO; +CEPH500C PO; +FERR325T18 PO; +FINA5TAB2 PO; +FLOM0.4C39 PO; +FOLI1TAB11 PO; +VITMTA PO
--- NOTE | 2019-12-14 14:38 | REP ---
INDICATION: CLAUDICATION atherosclerosis of creek arteries. Intermittent claudication bilateral lower extremities. Pseudoaneurysm repair November 19, 2019. COMPARISON: CT angiography 11/18/2019.. TECHNIQUE: Bilateral lower extremity arterial Doppler ultrasound. FINDINGS: Extensive atherosclerotic plaquing is noted throughout. The distal abdominal aortic peak systolic flow velocity is recorded 48.5 centimeters/seconds. Ankle brachial indices are measured at 0.75 on the right and 0.58 on the left. The right superficial femoral artery is occluded. Compensatory high velocity is observed in the profundal on the right. Monophasic waveforms are noted at and below the popliteal on the right. The right posterior tibial artery is occluded. The right femoral and popliteal arteries are ectatic. On the left there is a fluid collection status post pseudoaneurysm repair. The fluid collection measures 7.9 x 1.8 x 5.7 cm. No pseudoaneurysm is seen. The distal bifurcation of the common femoral artery on the left appears to be occluded with revascularize flow in the proximal superficial femoral artery. The proximal superficial femoral artery just beyond this is occluded and the occlusion continues through the popliteal on the left. Monophasic waveforms are noted throughout the left lower extremity. There is an occluded vessel running from the groin to the medial aspect of the knee question old occluded bypass graft. A large collateral vessel is again seen. The proximal left superficial femoral artery and popliteal artery is somewhat ectatic. Right lower extremity arterial Doppler velocity chart: Right TAYO PSV 121 cm/S EIA 86 MILL CONTROLLER 138 Profundal 237 Proximal SFA occluded Mid SFA is occluded Distal SFA occluded Popliteal 23 revascularized Proximal HÉCTOR 39 Tibial-peroneal trunk 34 Proximal SALES PLANNING COORDINATOR 27 Distal SALES PLANNING COORDINATOR occluded Distal HÉCTOR 22 Left lower extremity arterial Doppler velocity chart: Left TAYO PSV 100 cm/S DON 73 MILL CONTROLLER 212 Profundal 18 revascularize Proximal SFA revascularized 32/occluded Mid SFA occluded Distal SFA occluded Popliteal occluded Proximal HÉCTOR revascularized 21 Tibial-peroneal trunk 24 Proximal SALES PLANNING COORDINATOR 46 Distal SALES PLANNING COORDINATOR occluded Distal HÉCTOR 20 IMPRESSION: Bilateral lower extremity arterial Doppler ultrasound as above. <Electronically signed by Shahid Monson > 12/14/19 [id number]
== END ==
LOC: M RAD 07:25
PROVIDERS: ATTEND Physician Assistant
DX: I70.213 Atherosclerosis of native arteries of extremities with intermittent claudication, bilateral legs (principal); Z95.828 Presence of other vascular implants and grafts

== ENCOUNTER 2019-12-15 18:14 | Emergency (ER) | payer MEDICARE ==
[~2019-12-15] VITALS: Ht 177.8 cm; Wt 92.8 kg
[~2019-12-15 18:14] MED LIST changes: -ASPI-161 PO; -BACI1CAP PO; -CEPH500C PO; -FERR325T18 PO; -FINA5TAB2 PO; -FLOM0.4C39 PO; -FOLI1TAB11 PO; -VITMTA PO
[2019-12-15 19:10] LABS: BILIRUBIN, URINE MANUAL NEGATIVE (NEGATIVE); GLUCOSE, URINE (UA) MANUAL NEGATIVE (NEGATIVE); KETONE, URINE MANUAL NEGATIVE (NEGATIVE); UROBILINOGEN, URINE MANUAL NORMAL (NORMAL)
[2019-12-15 19:14] LABS: BACTERIA, URINE SMALL AMOUNT; RBC, URINE TNTC /hpf (0-3); SQUAMOUS EPITHELIAL CELL URINE NONE SEEN /hpf (SMALL AMT)
[2019-12-15 19:15] LABS: HYALINE CAST, URINE NONE SEEN /lpf (0-1); MUCUS, URINE SMALL AMOUNT (NEGATIVE)
[2019-12-15 19:52] LABS: BASO % 0.6 % (0.0-1.0); EOS # 0.3 10^3/uL (0.0-0.5); EOS % 5.2 % (0.0-3.0); HEMATOCRIT 31.7 % (42.0-52.0); HEMOGLOBIN 10.1 g/dl (13.5-17.5); LYMPH # 2.1 10^3/uL (1.5-5.0); LYMPH % 34.1 % (24.0-44.0); MEAN CORPUSCULAR HEMOGLOBIN 31.1 pg (27.0-33.0); MEAN CORPUSCULAR HGB CONC 31.9 g/dl (32.0-36.5); MEAN CORPUSCULAR VOLUME 97.5 fl (80.0-96.0); MONO # 0.6 10^3/uL (0.0-0.8); MONO % 10.4 % (0.0-5.0); NEUTROPHILS % 49.4 % (36.0-66.0); PLATELET COUNT, AUTOMATED 206 10^3/uL (150-450); RED BLOOD COUNT 3.25 10^6/uL (4.30-6.10); WHITE BLOOD COUNT 6.2 10^3/uL (4.0-10.0)
[2019-12-15 20:05] LABS: BLOOD UREA NITROGEN 18 MG/DL (7-18); CALCIUM LEVEL 8.4 MG/DL (8.8-10.2); CARBON DIOXIDE LEVEL 25 MEQ/L (21-32); CHLORIDE LEVEL 111 MEQ/L (98-107); CREATININE FOR GFR 0.76 MG/DL (0.70-1.30); GLOMERULAR FILTRATION RATE > 60.0 (>42); GLUCOSE, FASTING 96 MG/DL (70-100); SODIUM LEVEL 143 MEQ/L (136-145)
--- NOTE | 2019-12-15 20:06 | REPVR ---
PROCEDURE INFORMATION: Exam: CT Abdomen And Pelvis Without Contrast Exam date and time: 12/15/2019 7:42 PM Age: 69 years old Clinical indication: Other: Hematuria, HX kidney stones TECHNIQUE: Imaging protocol: Computed tomography of the abdomen and pelvis without contrast. Radiation optimization: All CT scans at this facility use at least one of these dose optimization techniques: automated exposure control; mA and/or kV adjustment per patient size (includes targeted exams where dose is matched to clinical indication); or iterative reconstruction. COMPARISON: CT ABD PELVIS W/O CONTRAST 12/22/2017 1:35 PM FINDINGS: Lungs: Calcified granuloma left lower lobe. Thickening of the interlobular septa in both lower lobes may indicate mild interstitial lung disease. Liver: Normal. No mass. Gallbladder and bile ducts: Normal. No calcified stones. No ductal dilation. Pancreas: Normal. No ductal dilation. Spleen: The spleen demonstrates punctate calcifications, consistent with remote granulomatous organism exposure. Adrenals: Normal. No mass. Kidneys and ureters: Punctate nonobstructive calculus right kidney. No obstructive ureteral calculi. Stomach and bowel: This patient is status post gastric bypass surgery. Mild diverticulosis is present in the distal colon. No diverticulitis. Appendix: No evidence of appendicitis. Intraperitoneal space: Unremarkable. No free air. No significant fluid collection. Vasculature: The aortoiliac vessels demonstrate mild atherosclerotic calcification. Bilateral iliac artery stents demonstrated. Lymph nodes: Calcified left hilar and mediastinal lymph nodes. Urinary bladder: Diffuse thickening of the bladder wall likely related to changes of chronic bladder outlet obstruction. Reproductive: The prostate gland demonstrates marked hyperplasia. Bones/joints: Severe central spinal stenosis L3-L4 and L4-L5. The spine demonstrates moderate degenerative changes. Soft tissues: There is a small umbilical hernia. There is no evidence of incarceration. Inflammatory changes in the left inguinal region at the site of a previously demonstrated left groin mass, possibly vascular in etiology. Unclear to findings are related to recent surgery or postprocedural. Clinical correlation needed. IMPRESSION: 1. This patient is status post gastric bypass surgery. 2. Punctate nonobstructive calculus right kidney. No obstructive ureteral calculi. 3. Marked prostatic hyperplasia. 4. Inflammatory changes in the left inguinal region at the site of a previously demonstrated left groin mass, possibly vascular in etiology. Unclear to findings are related to recent surgery or postprocedural. Clinical correlation needed. 5. Mild diverticulosis is present in the distal colon. No diverticulitis. 6. Findings consistent with remote intrathoracic and abdominal granulomatous infection. Electronically signed by: Berlin Reese On 12/15/2019 20:06:55 PM
[2019-12-15] MEDS ORDERED: ACETAMINOPHEN TAB 650MG DOSE (2X325MG) PO ONE (20:15)
[2019-12-15] MEDS ORDERED: LIDOCAINE 2% 5ML JELLY UROJET TOP ONE (20:30)
[2019-12-15 23:15] VITALS: BP 169/75
[2019-12-16] MEDS ORDERED: BACI1CAP PO (15:48)
[2019-12-16] MEDS ORDERED: CEPH500C PO (15:48)
== END 2019-12-15 23:47 | disposition home or self-care (01) ==
LOC: M ED 18:14
DX: R31.9 Hematuria, unspecified (principal); T45.525A Adverse effect of antithrombotic drugs, initial encounter; I11.0 Hypertensive heart disease with heart failure; I50.9 Heart failure, unspecified; E78.5 Hyperlipidemia, unspecified; G47.33 Obstructive sleep apnea (adult) (pediatric); I73.9 Peripheral vascular disease, unspecified; Z86.718 Personal history of other venous thrombosis and embolism; Z98.84 Bariatric surgery status

== ENCOUNTER 2019-12-16 08:58 | Inpatient (IN) | payer MEDICARE ==
[~2019-12-16] VITALS: Ht 177.8 cm; Wt 92.1 kg
[2019-12-16] MEDS ORDERED: NS 500 ML IV ONE (09:45)
[2019-12-16] MEDS ORDERED: LIDOCAINE 2% 5ML JELLY UROJET TOP ONE (09:45)
[2019-12-16 09:52] LABS: HEMATOCRIT 35.4 % (42.0-52.0); HEMOGLOBIN 11.1 g/dl (13.5-17.5); MEAN CORPUSCULAR HEMOGLOBIN 30.7 pg (27.0-33.0); MEAN CORPUSCULAR HGB CONC 31.4 g/dl (32.0-36.5); MEAN CORPUSCULAR VOLUME 97.8 fl (80.0-96.0); PLATELET COUNT, AUTOMATED 223 10^3/uL (150-450); RED BLOOD COUNT 3.62 10^6/uL (4.30-6.10); WHITE BLOOD COUNT 6.9 10^3/uL (4.0-10.0)
[2019-12-16 10:16] LABS: BLOOD UREA NITROGEN 18 MG/DL (7-18); CALCIUM LEVEL 8.7 MG/DL (8.8-10.2); CARBON DIOXIDE LEVEL 25 MEQ/L (21-32); CHLORIDE LEVEL 112 MEQ/L (98-107); CREATININE FOR GFR 0.93 MG/DL (0.70-1.30); GLOMERULAR FILTRATION RATE > 60.0 (>42); GLUCOSE, FASTING 172 MG/DL (70-100); SODIUM LEVEL 144 MEQ/L (136-145)
[2019-12-16] MEDS ORDERED: ACETAMINOPHEN TAB 650MG DOSE (2X325MG) PO ONE (10:30)
[2019-12-16 11:25] LABS: THYROID STIMULATING HORMONE 0.979 uIU/ML (0.358-3.740)
[2019-12-16] MEDS ORDERED: MAALOX 30 ML SUSP *UDC PO PRN (11:45)
[2019-12-16] MEDS ORDERED: MOM 30ML SUSPENSION UDC PO PRN (11:45)
[2019-12-16 14:00] VITALS: BP 148/82
[2019-12-16] MEDS: DOCUSATE SODIUM 100 MG CAP PO SCH ×2 (14:17→20:03)
--- NOTE | 2019-12-16 14:30 | SMCUROLCON ---
Urology Consultation General Date of Consultation 12/16/19 Reason For Consultation This patient is seen for Hematuria. History of Present Illness The patient is a 69-year-old white male with a past medical history for Left femoral bypass surgery and gross hematuria x 2 days. He had a naidu cath in place for his femoral bypass but had no problems after it was removed. He states that 2 days ago he started having gross hematuria and was seen in the ER. He was cathed several times and manually irrigated. The urine remained clear and he was sent home without a naidu. He returned today because of a recurrence of hematuria and clots. When he returned to day for recurrent hematuria and clot retention, he was admitted. Past Medical History Medical History Cataracts Coronary artery disease Peripheral arterial disease Hypercholesterolemia Hypertension Sleep apnea Gastric bypass surgery renal calculi Surgical Hstory Left cataract Gastric Bypass Cardiac stents Femoral bypass left Social History * Smoker: former Smoker Alcohol: rarely Medications Current Medications Current Medications Medications (Trade) Dose Ordered Sig/Dario Route PRN Reason Start Time Stop Time Status Last Admin Dose Admin Acetaminophen (Tylenol Tab) 650 mg Q4H PRN PO PAIN OR FEVER 12/16/19 11:45 Al Hydrox/Mg Hydrox/Simethicone (Mylanta) 30 ml DAILY PRN PO DYSPEPSIA 12/16/19 11:45 Docusate Sodium (Colace) 100 mg BID PO 12/16/19 09:00 Home Med (Med Rec Complete!) ASDIRECTED XX 12/16/19 12:15 12/16/19 12:09 DC Magnesium Hydroxide (Milk Of Magnesia) 30 ml DAILY PRN PO CONSTIPATION 12/16/19 11:45 Allergies Allergies: Coded Allergies: Contrast Media (Verified Allergy, Unknown, 12/15/19) Penicillins (Verified Allergy, Unknown, 12/15/19) Quinolones (Verified Allergy, Unknown, 12/15/19) Review of Systems General: Reports: Normal Appetite; Denies: Fatigue, Malaise Constitutional: Denies: Fever, Chills, Sweats, Weakness, Malaise Eyes: Denies: Pain, Vision change ENT: Denies: Head Aches, Sore Throat, Epistaxis Skin: Denies: Rash, Lesions, Breakdown, Nail Changes Pulmonary: Denies: Dyspnea, Cough Cardiovascular: Denies Chest Pain, Denies Palpitations Gastrointestinal: Denies: Nausea, Vomiting, Abdominal Pain Genitourinary: Denies: Dysuria, Frequency, Incontinence, Hematuria Hematologic: Denies: Bruising, Bleeding Excessively Endocrine: Denies: Polydipsia, Polyphagia, Polyuria Musculoskeletal: Denies: Neck Pain, Back Pain Neurological: Denies: Weakness, Numbness, Incoordination, Change in Speech Psych: Reports: Mood Normal; Denies: Anxiety, Depression Physical Examination General Exam: Alert, No Acute Distress EYE EXAM: PERRLA, Conjunctiva & lids normal, EOMI; No: Sclera icteric ENT EXAM: Atraumatic, Mucous membr. moist/pink, Pharynx Normal Neck Exam: Supple; No: JVD, thyromegaly Chest Exam: Clear to auscultation, Normal air movement Heart Exam: Rate Normal, Regular Rhythm, Normal S1, Normal S2; No: Murmurs, Rubs Abdomen Exam: Normal Bowel Sounds, Soft; No: Tenderness, Hepatospenomegaly Male Exam Normal circumcised penis Scrotum, testes, epididimi and perineum normal Rectal exam not performed because of current condition and pt states he has regular exams with PCP Vital Signs/I&O Vital Signs Date Time Temp Pulse Resp B/P (MAP) Pulse Ox O2 Delivery O2 Flow Rate FiO2 12/16/19 12:32 57 96 12/16/19 12:31 167/80 (109) Room Air 12/16/19 12:16 18 12/16/19 08:58 97.0 Laboratory Data 24H Labs Laboratory Tests 2 12/16/19 09:29: Nucleated Red Blood Cells % (auto) 0.0, Anion Gap 7L, Glomerular Filtration Rate > 60.0, Calcium Level 8.7L, Thyroid Stimulating Hormone (TSH) 0.979 CBC/BMP Laboratory Tests 12/16/19 09:29 Assessment Gross hematuria Enlarged Prostate Plan [address] naidu inserted without difficulty, but the catheter is showing that patient has a bvery high prostate and likely a very large median lobe. These can tend to be much more vascular and may be the cause of his current hematuria. Will continue [address] catheter irricagion for 24-48 hours before deciding on cystoscopy. Pt may have a cysto on Wednesday if hematuria continues. If it clears up, I would prefer to hold off on a cystoscopy until he can be done as an outpatient giving him a longer time to recover from his bypass surgery. Time Spent on Consult: Time Spent / Consult (Minutes): 75 RUBEN JORDAN MD Dec 16, 2019 14:30
--- NOTE | 2019-12-16 14:50 | HPEPDOC ---
[facility] Medical History & Physical Date of Admission Dec 16, 2019 Date of Service: Dec 16, 2019 History and Physical CHIEF COMPLAINT: HISTORY OF PRESENT ILLNESS: Mr. Leonard is a 69-year-old male with a past medical history of coronary artery disease, hypertension, hypercholesterolemia, obstructive sleep apnea and peripheral arterial disease. He was recently admitted for an extensive left femoral exploration with excision of multiple failed grafts and crutches and the left femoral artery, as well as neurologic patch repair of the artery. He currently takes aspirin, Plavix. He was seen in the ED on 12/14 for gross hematuria when he was catheterized and manually irrigated prior to DC. He returns today with ongoing gross hematuria with clots with no improvement. On arrival, hemoglobin 11.1. Hematocrit 35.4. BP 140/82, heart rate 56, respiratory 18. Afebrile. Saturating 98% on room air. CT from 12/14 showing a nonobstructive right calculus, nonobstructive ureteral calculi. He was seen by urology in the ER. Three-way Zambrano inserted for continuous bladder irrigation. Patient admitted for workup of hematuria. PAST MEDICAL HISTORY: Hx of DE CAD Atherosclerosis of the [place] arteries with failure non-autologous bypass grafts bilateral femorals HTN Hypercholesterolemia Hx of MALACHI no longer on CPAP s/p gastric bypass hx of nephrolithiasis Hx of RLE DVT medical non-compliance PAST SURGICAL HISTORY: Cardiac stentsx2 Bilateral femoral bypass grafts iliac stents gastric bypass surgery colonoscopy (2018)- tubular adenoma on pathology Colonoscopy (2015)-tubulovillous adenoma on pathology R-leg fx repair SOCIAL HISTORY: Patient denies smoking Consumes approximately 2 alcoholic drinks per day Patient denies illicit drug use FAMILY HISTORY: Is family history of cardiac disease or cancer ALLERGIES: Please see below. REVIEW OF SYSTEMS: CONSTITUTIONAL: patient denies fevers, chills HEENT: patient denies blurred vision, loss of vision, headache,. CARDIOVASCULAR: patient denies chest pain, palpitations. RESPIRATORY: patient denies shortness of breath, cough, hemoptysis. GASTROINTESTINAL: patient denies abdominal pain, n/v/d, blood in stool. GENITOURINARY: Gross hematuria with clots. SKIN: patient denies rashes. MUSCULOSKELETAL: patient denies joint pain, neck pain. NEUROLOGICAL: patient denies focal weakness, numbness, seizures. PSYCHIATRIC: patient denies SI/HI. ENDOCRINE: patient denies polyuria, heat intolerance, cold intolerance. HEMATOLOGIC/LYMPHATIC: patient denies easy bruising. HOME MEDICATIONS: Please see below. PHYSICAL EXAMINATION: VITAL SIGNS: please see below General: NAD, comfortable HEENT: PERRLA, EOMI, sclerae clear Neck: supple, normal ROM, no JVD Respiratory: lungs CTAB, no wheeze, no rales, no crackles CVS: RRR, normal S1, S2, no murmurs Abdo: soft, no masses, no hepatosplenomegaly, BS+, no rebound tenderness. Stapled surgical site in left groin : Continuous bladder irrigation ongoing, Zambrano catheter draining pink urine, no further clots seen. Extremities: no edema, pulses 1+ bilaterally MSK: no joint deformities, normal ROM Neuro: no focal neuro deficits, moving all 4 extremities, CN2-12 intact. Strength 5/5 in all 4 extremities. No nystagmus. Psych: calm, cooperative, AAO x 3 LABORATORY DATA: See below. IMAGING: reviewed MICROBIOLOGY: Please see below. ASSESSMENT: 69-year-old male with a past medical history of coronary artery disease, hypertension, hypercholesterolemia, obstructive sleep apnea and peripheral arterial disease. Admitted for persistent hematuria for 2 days. Urgent consult. Hemoglobin stable. Possible cystoscopy while inpatient. . PLAN: #PAD/left femoral artery graft repair: Continue with aspirin and Plavix (discussed this with Dr. Yu agrees need to continue dual antibiotic therapy). Statin. The lateral lower extremity arterial Doppler performed on November 17. Extensive atherosclerotic plaquing is noted throughout. Patient has follow-up with Dr. Livingston in clinic on December 18. #Hematuria: 1 for 2 days. Hemoglobin stable. 3. Zambrano inserted for continuous bladder irrigation. Urology following. Dr. Yu on consult. Possible source of bleed. A vascular large median lobe of prostate. Possible cystoscopy while i npatient. 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 - as patient is asymptomatic, no need for further immediate cardiac intervention #Alcohol use - CIWA protocol as a precaution #CAD -Continue statin -resume ASA/plavix #HTN -Continue home medications. #Hx of medical non-adherence -Complicating care. DVT ppx: TEDs, SCDs. Vital Signs Vital Signs Date Time Temp Pulse Resp B/P (MAP) Pulse Ox O2 Delivery O2 Flow Rate FiO2 12/16/19 12:32 57 96 12/16/19 12:31 167/80 (109) Room Air 12/16/19 12:16 18 12/16/19 08:58 97.0 Laboratory Data Labs 24H Laboratory Tests 2 12/16/19 09:29: Nucleated Red Blood Cells % (auto) 0.0, Anion Gap 7L, Glomerular Filtration Rate > 60.0, Calcium Level 8.7L, Thyroid Stimulating Hormone (TSH) 0.979 CBC/BMP Laboratory Tests 12/16/19 09:29 Home Medications Scheduled Amlodipine Besylate (Amlodipine Besylate) 5 Mg Tablet, 5 MG PO DAILY Aspirin (Aspirin) 81 Mg Tab.chew, 81 MG PO DAILY Atorvastatin Calcium (Atorvastatin Calcium) 80 Mg Tablet, 80 MG PO DAILY Bacillus Coagulans (Bacid with Lactospore) 1 Each Capsule, 1 CAP PO WM Cephalexin (Cephalexin) 500 Mg Capsule, 500 MG PO TID Cholecalciferol (Vitamin D3) (Vitamin D3) 1,000 Unit Tablet, 2,000 UNITS PO DAILY Clopidogrel Bisulfate (Clopidogrel) 75 Mg Tablet, 75 MG PO DAILY Lisinopril (Lisinopril) 5 Mg Tablet, 5 MG PO DAILY Allergies Coded Allergies: Contrast Media (Verified Allergy, Unknown, 12/15/19) Penicillins (Verified Allergy, Unknown, 12/15/19) Quinolones (Verified Allergy, Unknown, 12/15/19) A-FIB/CHADSVASC A-FIB History Current/History of A-Fib/PAF?: No Current PO Anticoag Therapy: RENÉ Shafer MD Dec 16, 2019 14:50
[2019-12-16] MEDS ORDERED: CEPH500C PO (15:48)
[2019-12-16] MEDS ORDERED: BACI1CAP PO (15:48)
[2019-12-16] MEDS: ACETAMINOPHEN TAB 650MG DOSE (2X325MG) PO PRN (20:04)
[2019-12-16 22:00] VITALS: BP 157/88
[2019-12-17] MEDS: ACETAMINOPHEN TAB 650MG DOSE (2X325MG) PO PRN ×2 (05:02→14:24)
[2019-12-17 06:00] VITALS: BP 122/59
[2019-12-17 06:37] LABS: ALBUMIN 2.7 GM/DL (3.2-5.2); ALT/SGPT 31 U/L (12-78); BILIRUBIN,TOTAL 0.4 MG/DL (0.2-1.0); BLOOD UREA NITROGEN 14 MG/DL (7-18); CALCIUM LEVEL 8.1 MG/DL (8.8-10.2); CARBON DIOXIDE LEVEL 24 MEQ/L (21-32); CHLORIDE LEVEL 112 MEQ/L (98-107); CREATININE FOR GFR 0.69 MG/DL (0.70-1.30); GLOMERULAR FILTRATION RATE > 60.0 (>42); GLUCOSE, FASTING 104 MG/DL (70-100); MAGNESIUM LEVEL 1.6 MG/DL (1.8-2.4); POTASSIUM SERUM 3.6 MEQ/L (3.5-5.1); SODIUM LEVEL 144 MEQ/L (136-145); TOTAL PROTEIN 5.4 GM/DL (6.4-8.2)
[2019-12-17 06:49] LABS: BASO % 0.4 % (0.0-1.0); EOS # 0.3 10^3/uL (0.0-0.5); EOS % 3.9 % (0.0-3.0); HEMATOCRIT 30.1 % (42.0-52.0); HEMOGLOBIN 9.6 g/dl (13.5-17.5); LYMPH # 1.9 10^3/uL (1.5-5.0); LYMPH % 24.8 % (24.0-44.0); MEAN CORPUSCULAR HEMOGLOBIN 30.9 pg (27.0-33.0); MEAN CORPUSCULAR HGB CONC 31.9 g/dl (32.0-36.5); MEAN CORPUSCULAR VOLUME 96.8 fl (80.0-96.0); MONO # 0.8 10^3/uL (0.0-0.8); MONO % 10.8 % (0.0-5.0); NEUTROPHILS # 4.5 10^3/uL (1.5-8.5); NEUTROPHILS % 59.2 % (36.0-66.0); PLATELET COUNT, AUTOMATED 192 10^3/uL (150-450); RED BLOOD COUNT 3.11 10^6/uL (4.30-6.10); WHITE BLOOD COUNT 7.7 10^3/uL (4.0-10.0)
[2019-12-17] MEDS ORDERED: LORazepam 2 MG TAB PO PRN (08:00)
[2019-12-17] MEDS ORDERED: PREVNAR 13 VACCINE SYRINGE IM ONE (09:00)
[2019-12-17] MEDS: ATORVASTATIN 20 MG TAB PO SCH (09:52)
[2019-12-17] MEDS: VITAMIN D 1,000 INTERNATIONAL UNITS TABLET PO SCH (09:53)
[2019-12-17] MEDS: CLOPIDOGREL 75 MG TAB PO SCH (09:53)
[2019-12-17] MEDS: ASPIRIN 81 MG CHEW TABLET PO SCH (09:53)
[2019-12-17] MEDS: DOCUSATE SODIUM 100 MG CAP PO SCH ×2 (09:53→21:00)
[2019-12-17] MEDS: lisinopriL 5 MG TAB PO SCH (09:54)
[2019-12-17] MEDS: amLODIPine 5 MG TAB PO SCH (09:55)
[2019-12-17] MEDS: oxyBUTYnin 5 MG TAB PO PRN ×2 (10:28→16:42)
[2019-12-17] MEDS ORDERED: NS 1,000 ML IV SCH (11:45)
--- NOTE | 2019-12-17 11:57 | IPNPDOC ---
Subjective Review oF Systems Chief Complaint The patient is a 69-year-old male admitted with a reason for visit of Hematuria. General: Reports: Normal Appetite; Denies: Fatigue, Malaise Constitutional: Denies: Fever, Chills, Sweats, Weakness, Malaise Eyes: Denies: Pain, Vision change ENT: Denies: Head Aches, Sore Throat, Epistaxis Skin: Denies: Rash, Lesions, Breakdown, Nail Changes Pulmonary: Denies: Dyspnea, Cough Cardiovascular: Denies Chest Pain, Denies Palpitations Gastrointestinal: Denies: Nausea, Vomiting, Abdominal Pain Genitourinary: Denies: Dysuria, Frequency, Incontinence, Hematuria Hematologic: Denies: Bruising, Bleeding Excessively Endocrine: Denies: Polydipsia, Polyphagia, Polyuria Musculoskeletal: Denies: Neck Pain, Back Pain Neurological: Denies: Weakness, Numbness, Incoordination, Change in Speech Psych: Reports: Mood Normal; Denies: Anxiety, Depression Objective Physical Examination Eye Exam: PERRLA, Conjunctiva & lids normal, EOMI; No: Sclera icteric ENT EXAM: Atraumatic, Mucous membr. moist/pink, Pharynx Normal Neck Exam: Supple; No: JVD, thyromegaly Chest Exam: Clear to auscultation, Normal air movement ABDOMEN EXAM: Normal bowel sounds, Soft; No: Tenderness, Hepatospenomegaly Other physical findings Urine still pink per fley with CBI running slowly. Vital Signs/I&O Vital Signs Date Time Temp Pulse Resp B/P (MAP) Pulse Ox O2 Delivery O2 Flow Rate FiO2 12/17/19 09:55 68 12/17/19 09:54 122/77 12/17/19 06:00 99.0 20 96 Room Air I&O- Last 24 Hours up to 6 AM 12/17/19 06:00 Intake Total 1230 ml Output Total 4500 ml Balance -3270 ml Laboratory Data Labs 24H Laboratory Tests 2 12/17/19 05:47: Immature Granulocyte % (Auto) 0.9, Neutrophils (%) (Auto) 59.2, Lymphocytes (%) (Auto) 24.8, Monocytes (%) (Auto) 10.8H, Eosinophils (%) (Auto) 3.9H, Basophils (%) (Auto) 0.4, Neutrophils # (Auto) 4.5, Lymphocytes # (Auto) 1.9, Monocytes # (Auto) 0.8, Eosinophils # (Auto) 0.3, Basophils # (Auto) 0.0, Nucleated Red Blood Cells % (auto) 0.0, Anion Gap 8, Glomerular Filtration Rate > 60.0, Calcium Level 8.1L, Magnesium Level 1.6L, Total Bilirubin 0.4, Aspartate Amino Transf (AST/SGOT) 19, Alanine Aminotransferase (ALT/SGPT) 31, Alkaline Phosphatase 71, Total Protein 5.4L, Albumin 2.7L, Albumin/Globulin Ratio 1.0 CBC/BMP Laboratory Tests 12/17/19 05:47 Assessment/Plan Date Seen The patient was seen on 12/17/19. Problems (1) Hematuria Onset Date: ~ 12/15/2019 Status: Acute Response to Treatment: Stable Urology Problem Text: Because the hematuria continues, he will need a cystoscopy with pssible fulguration or resection. this will be planned for tomorrow. Plan/VTE VTE Prophylaxis Ordered?: No RUBEN JORDAN MD Dec 17, 2019 11:57
[2019-12-17 14:00] VITALS: BP 122/74
--- NOTE | 2019-12-17 14:26 | IPNPDOC ---
Date Seen The patient was seen on 12/17/19. Progress Note SUBJECTIVE: Patient seen and examined at bedside. Reports ongoing hematuria with clots overnight. Denies weakness, fatigue. OBJECTIVE PHYSICAL EXAMINATION: VITAL SIGNS: please see below General: NAD, comfortable HEENT: PERRLA, EOMI, sclerae clear Neck: supple, normal ROM, no JVD Respiratory: lungs CTAB, no wheeze, no rales, no crackles CVS: RRR, normal S1, S2, no murmurs Abdo: soft, no masses, no hepatosplenomegaly, BS+, no rebound tenderness. Stapled surgical site in left groin : Continuous bladder irrigation ongoing, Zambrano catheter draining pink urine Extremities: no edema, pulses 1+ bilaterally MSK: no joint deformities, normal ROM Neuro: no focal neuro deficits, moving all 4 extremities, CN2-12 intact. Strength 5/5 in all 4 extremities. No nystagmus. Psych: calm, cooperative, AAO x 3 LABORATORY DATA, IMAGING STUDIES, MICROBIOLOGY: Please see below. DVT prophylaxis ordered?: TEDs, SCDs SSESSMENT: 69-year-old male with a past medical history of coronary artery disease, hypertension, hypercholesterolemia, obstructive sleep apnea and peripheral arterial disease. Admitted for persistent hematuria for 2 days. Urology consult. Hemoglobin stable. Possible cystoscopy while inpatient. . PLAN: #PAD/left femoral artery graft repair: Continue with aspirin and Plavix (discussed this with Dr. Yu agrees need to continue dual antibiotic therapy). Statin. The lateral lower extremity arterial Doppler performed on November 17. Extensive atherosclerotic plaquing is noted throughout. Patient has follow-up with Dr. Livingston in clinic on December 18. #Hematuria: Zambrano inserted for continuous bladder irrigation. Urology following. Dr. Yu on consult. Possible source of bleed. A vascular large median lobe of prostate. Discussed with Dr. Yu, planned for cystoscopy on 12/18/19. #Acute blood loss anemia: Hgb 9.6 (down from 11.1). Monitor H/H q12h. Due to hematuria. 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 - as patient is asymptomatic, no need for further immediate cardiac intervention #Alcohol use - CIWA protocol as a precaution #CAD -Continue statin -resume ASA/plavix #HTN -Continue home medications. #Hx of medical non-adherence -Complicating care. DVT ppx: TEDs, SCDs. VS, I&O, 24H, Fishbone Vital Signs/I&O Vital Signs Date Time Temp Pulse Resp B/P (MAP) Pulse Ox O2 Delivery O2 Flow Rate FiO2 12/17/19 09:55 68 12/17/19 09:54 122/77 12/17/19 06:00 99.0 20 96 Room Air I&O- Last 24 Hours up to 6 AM0 12/17/19 06:00 Intake Total 1230 ml Output Total 4500 ml Balance -3270 ml Laboratory Data 24H LABS Laboratory Tests 2 12/17/19 05:47: Immature Granulocyte % (Auto) 0.9, Neutrophils (%) (Auto) 59.2, Lymphocytes (%) (Auto) 24.8, Monocytes (%) (Auto) 10.8H, Eosinophils (%) (Auto) 3.9H, Basophils (%) (Auto) 0.4, Neutrophils # (Auto) 4.5, Lymphocytes # (Auto) 1.9, Monocytes # (Auto) 0.8, Eosinophils # (Auto) 0.3, Basophils # (Auto) 0.0, Nucleated Red Blood Cells % (auto) 0.0, Anion Gap 8, Glomerular Filtration Rate > 60.0, Calcium Level 8.1L, Magnesium Level 1.6L, Total Bilirubin 0.4, Aspartate Amino Transf (AST/SGOT) 19, Alanine Aminotransferase (ALT/SGPT) 31, Alkaline Phosphatase 71, Total Protein 5.4L, Albumin 2.7L, Albumin/Globulin Ratio 1.0 12/17/19 12:19: Coronavirus (COVID-19)(PCR) NEGATIVE CBC/BMP Laboratory Tests 12/17/19 05:47 RENÉ HAGEN MD Dec 17, 2019 14:26
[2019-12-17 14:39] VITALS: BP 122/74
[2019-12-17] MEDS ORDERED: RAMELTEON 8 MG TAB (ROZEREM) PO PRN (17:15)
[2019-12-17 20:00] VITALS: BP 149/69
--- NOTE | 2019-12-17 20:32 | ECGEPIP ---
[facility] - ED Test Date: 2019-12-16 Pat Name: STEVEN RICHARDSON Department: Room: - Gender: Male [employer]: [facility] : 1950 Requested By: REYNA Castellanos Order Number: [id number] Reading MD: Mónica Tovar Measurements Intervals [place] Rate: 50 P: MI: 0 QRS: -21 QRSD: 88 T: 32 QT: 406 QTc: 371 Interpretive Statements SINUS RHYTHM MOBITZ I AV BLOCK SEPTAL MYOCARDIAL INFARCTION, OF INDETERMINATE AGE SIMILAR 11/23/19 Electronically Signed on 12-17-2019 20:32:31 EDT by Mónica Tovar
[2019-12-17 22:00] VITALS: BP 149/69
[2019-12-18] VITALS (11 sets, daily range): BP systolic 100–144; BP diastolic 53–73
[2019-12-18] MEDS: oxyBUTYnin 5 MG TAB PO PRN (03:55)
[2019-12-18 06:18] LABS: BASO % 0.5 % (0.0-1.0); EOS # 0.3 10^3/uL (0.0-0.5); HEMATOCRIT 31.4 % (42.0-52.0); HEMOGLOBIN 10.2 g/dl (13.5-17.5); LYMPH # 2.1 10^3/uL (1.5-5.0); LYMPH % 25.7 % (24.0-44.0); MEAN CORPUSCULAR HEMOGLOBIN 31.6 pg (27.0-33.0); MEAN CORPUSCULAR HGB CONC 32.5 g/dl (32.0-36.5); MEAN CORPUSCULAR VOLUME 97.2 fl (80.0-96.0); MONO # 0.9 10^3/uL (0.0-0.8); MONO % 11.5 % (0.0-5.0); NEUTROPHILS # 4.7 10^3/uL (1.5-8.5); NEUTROPHILS % 57.9 % (36.0-66.0); PLATELET COUNT, AUTOMATED 195 10^3/uL (150-450); RED BLOOD COUNT 3.23 10^6/uL (4.30-6.10)
[2019-12-18 06:36] LABS: ALBUMIN 2.7 GM/DL (3.2-5.2); ALT/SGPT 26 U/L (12-78); BILIRUBIN,TOTAL 0.3 MG/DL (0.2-1.0); BLOOD UREA NITROGEN 11 MG/DL (7-18); CALCIUM LEVEL 8.3 MG/DL (8.8-10.2); CARBON DIOXIDE LEVEL 29 MEQ/L (21-32); CHLORIDE LEVEL 108 MEQ/L (98-107); CREATININE FOR GFR 0.77 MG/DL (0.70-1.30); GLOMERULAR FILTRATION RATE > 60.0 (>42); GLUCOSE, FASTING 96 MG/DL (70-100); MAGNESIUM LEVEL 1.7 MG/DL (1.8-2.4); SODIUM LEVEL 141 MEQ/L (136-145); TOTAL PROTEIN 5.6 GM/DL (6.4-8.2)
[2019-12-18] MEDS: VITAMIN D 1,000 INTERNATIONAL UNITS TABLET PO SCH (09:00)
[2019-12-18] MEDS ORDERED: CLINDAMYCIN 600 MG in IV 1 EA IV ONE (10:00)
[2019-12-18] MEDS ORDERED: LIDOCAINE 2% 100MG/5ML SDV (FOR ANES.) As Ordered ONE (10:39)
[2019-12-18] MEDS ORDERED: fentaNYL 100 MCG/2 ML INJECTION (J3010) As Ordered ONE (10:39)
[2019-12-18] MEDS ORDERED: dexameTHASONE 4 MG/ML 1ML VIAL (J1100 PER 1MG) As Ordered ONE (10:39)
[2019-12-18] MEDS ORDERED: propofoL 200 MG/20 ML VIAL As Ordered ONE (10:39)
[2019-12-18] MEDS ORDERED: ACETAMINOPHEN 1000MG 100ML IV BTL (OFIRMEV) (J0131 PER 10MG) As Ordered ONE (10:39)
[2019-12-18] MEDS ORDERED: ONDANSETRON 4MG/2ML VIAL As Ordered ONE (10:39)
[2019-12-18] MEDS ORDERED: MIDAZOLAM INJ 2MG/2ML VIAL (J2250 PER 1MG) As Ordered ONE (10:39)
--- NOTE | 2019-12-18 11:32 | ROOPDOC ---
[facility] Report Of Operation Report of Operation DATE OF PROCEDURE: 12/18/19 PREPROCEDURE DIAGNOSES: Gross hematuria POSTPROCEDURE DIAGNOSES: Same with prostatic varices PROCEDURE: Cystoscopy, evacuation of clots, fulguration of prostatic varices SURGEON: Tavo Yu MD CLOCK REPAIRER: None ANESTHESIA: MAC ESTIMATED BLOOD LOSS: Approximately 50 mL. COMPLICATIONS: NONE REMARKS: Large lateral lobes and median lobe all with large varices PROCEDURE NOTE: Patient was brought to the OR for evaluation and treatment of hematuria DESCRIPTION OF PROCEDURE: The patient was placed ont he table in the supine position, given MAC anesthesia, prepped and draped in tehusual fashion and time out was performed. A 22 fr cystoscope was inserted into the bladder and advanced under direct vision of a 30 degree lens. The distal urethra was normal. The prostatic urethra was obstructed from large lateral lobes and a moderate median lobe. He was found to have varices present. The bladder was full of clot which was evacuated with a pablito syringe and evacuator. The bladder mucosa was then examined and seen to be normal. The ureteral orifices had clear efflux bilaterally. There was active bleeding from prostate varices so these were then fulgurated with a bugbee, but switched to a roller ball. When bleeding was controlled, the bladder was left partially inflated and the scope was slowly removed. I decided not to leave a naidu because of the risk that this would promote more bleeding. If, however, bleeding should continue, he will benefit from a large diameter 3 way naidu cath placed on traction. He was then awakened and sent to the recovery room having tolerated the procedure well. A rectal exam showed a 35 gram benign prostate. TAVO YU MD Dec 18, 2019 11:32
[2019-12-18] MEDS ORDERED: ONDANSETRON 4MG/2ML VIAL IV PRN ×2 (11:45→13:00)
[2019-12-18] MEDS ORDERED: HYDROMORPHONE HCL 0.5 MG/ 0.5 ML SYRINGE (J1170 PER 1) IV PRN ×2 (11:45→13:00)
[2019-12-18] MEDS ORDERED: oxyCODONE 5MG TAB PO PRN ×2 (11:45→13:00)
[2019-12-18] MEDS ORDERED: fentaNYL 100 MCG/2 ML INJECTION (J3010) IV PRN ×2 (11:45→13:00)
[2019-12-18] MEDS ORDERED: LR 1,000 ML IV SCH ×2 (11:45→13:00)
[2019-12-18] MEDS: MAG SULF 1GM/100ML (MAG RUN) 1 GM in IV 1 EA IV SCH ×2 (15:02→16:18)
[2019-12-18] MEDS: ATORVASTATIN 20 MG TAB PO SCH (15:03)
[2019-12-18] MEDS: amLODIPine 5 MG TAB PO SCH (15:03)
[2019-12-18] MEDS: lisinopriL 5 MG TAB PO SCH (15:04)
[2019-12-18] MEDS: DOCUSATE SODIUM 100 MG CAP PO SCH ×2 (15:04→20:40)
--- NOTE | 2019-12-18 17:00 | IPNPDOC ---
Date Seen The patient was seen on 12/18/19. Progress Note SUBJECTIVE: Patient seen and examined at bedside. Reports ongoing hematuria with clots overnight. Denies weakness, fatigue. For cystoscopy by Dr. Yu today. OBJECTIVE PHYSICAL EXAMINATION: VITAL SIGNS: please see below General: NAD, comfortable HEENT: PERRLA, EOMI, sclerae clear Neck: supple, normal ROM, no JVD Respiratory: lungs CTAB, no wheeze, no rales, no crackles CVS: RRR, normal S1, S2, no murmurs Abdo: soft, no masses, no hepatosplenomegaly, BS+, no rebound tenderness. Stapled surgical site in left groin : Continuous bladder irrigation ongoing, Zambrano catheter draining pink urine Extremities: no edema, pulses 1+ bilaterally MSK: no joint deformities, normal ROM Neuro: no focal neuro deficits, moving all 4 extremities, CN2-12 intact. Strength 5/5 in all 4 extremities. No nystagmus. Psych: calm, cooperative, AAO x 3 LABORATORY DATA, IMAGING STUDIES, MICROBIOLOGY: Please see below. DVT prophylaxis ordered?: TEDs, SCDs ASSESSMENT: 69-year-old male with a past medical history of coronary artery disease, hypertension, hypercholesterolemia, obstructive sleep apnea and p eripheral arterial disease. Admitted for persistent hematuria for 2 days. Urology consult. Hemoglobin stable. Possible cystoscopy while inpatient. Status post cystoscopy on 12/18/2019. Discussed with Dr. Yu noted numerous varices on prostate which were cauterized. Recommended observation overnight to monitor hemoglobin, hematuria . PLAN: #PAD/left femoral artery graft repair: Continue with aspirin and Plavix (discussed this with Dr. Yu agrees need to continue dual antibiotic therapy). Statin. The lateral lower extremity arterial Doppler performed on November 17. Extensive atherosclerotic plaquing is noted throughout. Patient has follow-up with Dr. Livingston in clinic on December 18. If stays on the , consult vascular for inpatient evaluation #Hematuria: Zambrano inserted for continuous bladder irrigation. Urology following. Dr. Yu on consult. Possible source of bleed. A vascular large median lobe of prostate., Status post cystoscopy on 12/18/2019. Discussed with Dr. Yu, seen numerous varices on prostate which cauterized. #Acute blood loss anemia: Hemoglobin stable at 10.2. Monitor H/H q12h. Due to hematuria. #Heart block - reviewed EKG - 2nd degree AV block type 1 (Wenkenbach) - patient does not have a board layer as outpatient, given extensive CAD hx, wo uld recommend outpatient referral. - as patient is asymptomatic, no need for further immediate cardiac intervention #Alcohol use - CIWA protocol as a precaution #CAD -Continue statin -resume ASA/plavix #HTN -Continue home medications. #Hx of medical non-adherence -Complicating care. DVT ppx: TEDs, SCDs. VS, I&O, 24H, Fishbone Vital Signs/I&O Vital Signs Date Time Temp Pulse Resp B/P (MAP) Pulse Ox O2 Delivery O2 Flow Rate FiO2 12/18/19 16:41 97.7 65 18 113/53 (73) 97 Room Air 12/18/19 12:15 2 I&O- Last 24 Hours up to 6 AM 12/18/19 06:00 Intake Total 17045 ml Output Total 25662 ml Balance -1925 ml Laboratory Data 24H LABS Laboratory Tests 2 12/18/19 05:36: Immature Granulocyte % (Auto) 0.4, Neutrophils (%) (Auto) 57.9, Lymphocytes (%) (Auto) 25.7, Monocytes (%) (Auto) 11.5H, Eosinophils (%) (Auto) 4.0H, Basophils (%) (Auto) 0.5, Neutrophils # (Auto) 4.7, Lymphocytes # (Auto) 2.1, Monocytes # (Auto) 0.9H, Eosinophils # (Auto) 0.3, Basophils # (Auto) 0.0, Nucleated Red Blood Cells % (auto) 0.0, Anion Gap 4L, Glomerular Filtration Rate > 60.0, Calcium Level 8.3L, Magnesium Level 1.7L, Total Bilirubin 0.3, Aspartate Amino Transf (AST/SGOT) 16, Alanine Aminotransferase (ALT/SGPT) 26, Alkaline Phosphatase 74, Total Protein 5.6L, Albumin 2.7L, Albumin/Globulin Ratio 0.9 CBC/BMP Laboratory Tests 12/18/19 05:36 RENÉ HAGEN MD Dec 18, 2019 17:00
[2019-12-18 17:51] LABS: HEMATOCRIT 30.7 % (42.0-52.0)
[2019-12-19 02:00] VITALS: BP 108/55
[2019-12-19 06:00] VITALS: BP 116/58
[2019-12-19 06:13] LABS: BASO % 0.3 % (0.0-1.0); EOS # 0.1 10^3/uL (0.0-0.5); EOS % 1.1 % (0.0-3.0); HEMATOCRIT 28.3 % (42.0-52.0); HEMOGLOBIN 9.4 g/dl (13.5-17.5); LYMPH # 1.9 10^3/uL (1.5-5.0); LYMPH % 19.5 % (24.0-44.0); MEAN CORPUSCULAR HEMOGLOBIN 32.3 pg (27.0-33.0); MEAN CORPUSCULAR HGB CONC 33.2 g/dl (32.0-36.5); MEAN CORPUSCULAR VOLUME 97.3 fl (80.0-96.0); MONO # 0.9 10^3/uL (0.0-0.8); MONO % 9.1 % (0.0-5.0); NEUTROPHILS # 6.8 10^3/uL (1.5-8.5); NEUTROPHILS % 69.5 % (36.0-66.0); PLATELET COUNT, AUTOMATED 217 10^3/uL (150-450); RED BLOOD COUNT 2.91 10^6/uL (4.30-6.10); WHITE BLOOD COUNT 9.9 10^3/uL (4.0-10.0)
[2019-12-19 06:38] LABS: ALBUMIN 2.5 GM/DL (3.2-5.2); ALT/SGPT 23 U/L (12-78); BILIRUBIN,TOTAL 0.3 MG/DL (0.2-1.0); BLOOD UREA NITROGEN 17 MG/DL (7-18); CALCIUM LEVEL 8.3 MG/DL (8.8-10.2); CARBON DIOXIDE LEVEL 26 MEQ/L (21-32); CHLORIDE LEVEL 111 MEQ/L (98-107); CREATININE FOR GFR 0.84 MG/DL (0.70-1.30); GLOMERULAR FILTRATION RATE > 60.0 (>42); GLUCOSE, FASTING 118 MG/DL (70-100); MAGNESIUM LEVEL 2.1 MG/DL (1.8-2.4); POTASSIUM SERUM 4.2 MEQ/L (3.5-5.1); SODIUM LEVEL 141 MEQ/L (136-145); TOTAL PROTEIN 5.4 GM/DL (6.4-8.2)
--- NOTE | 2019-12-19 08:12 | IPNPDOC ---
Subjective Review oF Systems Chief Complaint The patient is a 69-year-old male admitted with a reason for visit of Hematuria. General: Reports: Normal Appetite; Denies: Fatigue, Malaise Constitutional: Denies: Fever, Chills, Sweats, Weakness, Malaise Eyes: Denies: Pain, Vision change Genitourinary: Denies: Dysuria, Frequency, Incontinence, Hematuria Objective Physical Examination General Exam: Alert, No Acute Distress Eye Exam: PERRLA, Conjunctiva & lids normal, EOMI; No: Sclera icteric ENT EXAM: Atraumatic, Mucous membr. moist/pink, Pharynx Normal Neck Exam: Supple; No: JVD, thyromegaly Chest Exam: Clear to auscultation, Normal air movement ABDOMEN EXAM: Normal bowel sounds, Soft; No: Tenderness, Hepatospenomegaly Male Exam: Normal Genital Exam Other physical findings Patient is voiding well. Urine is still pink with occasional clots. Voiding large amounts with no residual Vital Signs/I&O Vital Signs Date Time Temp Pulse Resp B/P (MAP) Pulse Ox O2 Delivery O2 Flow Rate FiO2 12/19/19 06:00 97.6 59 17 116/58 (77) 95 Room Air 12/18/19 12:15 2 I&O- Last 24 Hours up to 6 AM 12/19/19 06:00 Intake Total 4940 ml Output Total 3875 ml Balance 1065 ml Laboratory Data Labs 24H Laboratory Tests 2 12/19/19 05:43: Immature Granulocyte % (Auto) 0.5, Neutrophils (%) (Auto) 69.5H, Lymphocytes (%) (Auto) 19.5L, Monocytes (%) (Auto) 9.1H, Eosinophils (%) (Auto) 1.1, Basophils (%) (Auto) 0.3, Neutrophils # (Auto) 6.8, Lymphocytes # (Auto) 1.9, Monocytes # (Auto) 0.9H, Eosinophils # (Auto) 0.1, Basophils # (Auto) 0.0, Nucleated Red Blood Cells % (auto) 0.0, Anion Gap 4L, Glomerular Filtration Rate > 60.0, Calcium Level 8.3L, Magnesium Level 2.1, Total Bilirubin 0.3, Aspartate Amino Transf (AST/SGOT) 13, Alanine Aminotransferase (ALT/SGPT) 23, Alkaline Phosphatase 72, Total Protein 5.4L, Albumin 2.5L, Albumin/Globulin Ratio 0.9 CBC/BMP Laboratory Tests 12/18/19 17:40 12/19/19 05:43 Assessment/Plan Date Seen The patient was seen on 12/19/19. Problems (1) Hematuria Onset Date: ~ 12/15/2019 Status: Acute Response to Treatment: Stable Urology Problem Text: Darius is voiding well without difficultiesw. Urine remains pink with occsional clots, but this is stable and will likely continue to some degree while he is on thinners. Plan/VTE VTE Prophylaxis Ordered?: No Plan Patient may be discharged home with hydration. Since bleeding continues, he may benefit from tamsulosin and finasteride. He will followup with his own urologist back home. RUBEN JORDAN MD Dec 19, 2019 08:12
[2019-12-19] MEDS ORDERED: FINA5TAB2 PO (08:18)
[2019-12-19] MEDS: ATORVASTATIN 20 MG TAB PO SCH (09:15)
[2019-12-19] MEDS: CLOPIDOGREL 75 MG TAB PO SCH (09:15)
[2019-12-19] MEDS: VITAMIN D 1,000 INTERNATIONAL UNITS TABLET PO SCH (09:15)
[2019-12-19] MEDS: DOCUSATE SODIUM 100 MG CAP PO SCH (09:15)
[2019-12-19 09:16] VITALS: BP 121/68
[2019-12-19] MEDS: ASPIRIN 81 MG CHEW TABLET PO SCH (09:16)
[2019-12-19] MEDS: lisinopriL 5 MG TAB PO SCH (09:16)
[2019-12-19] MEDS: amLODIPine 5 MG TAB PO SCH (09:16)
[2019-12-19 10:00] VITALS: BP 113/62
--- NOTE | 2019-12-19 13:40 | CR.PDOC ---
General Date of Consultation: Dec 19, [address] Livingston. REASON FOR CONSULTATION. PAD. HISTORY OF PRESENT ILLNESS: The pt is a 69-year-old male admitted as per hospitalist for hematuria, status post a left extensive femoral exploration, with excision of multiple failed grafts and patches on the left femoral artery, biologic patch repair of the artery 11/19/[address] Livingston. Redo bypass was not done, as he has had multiple failed bypasses in the past, and it was felt unlikely the bypass would be successful after so many prior failures. He is noted to have good collateral flow down below the knee from the profunda, as well as single vessel runoff to the foot. The patient had follow-up bilateral lower extremity arterial ultrasound 12/14/19. ALLERGIES: Please see below. HOME MEDICATIONS: Please see below. PAST MEDICAL HISTORY: Hypertension CAD Dyslipidemia History of kidney stone MALACHI PAST SURGICAL HISTORY: Multiple vascular procedures and bypasses FAMILY HISTORY: Hypertension SOCIAL HISTORY: Prior smoker REVIEW OF SYSTEMS: As noted in HPI otherwise 11 point review of systems unremarkable. PHYSICAL EXAMINATION: VITAL SIGNS: Please see below. GENERAL APPEARANCE: No apparent distress HEENT: Moist mucous membranes RESPIRATORY: Clear, no wheezing CARDIOVASCULAR: Regular rate and rhythm. ABDOMEN: Soft nontender. EXTREMITIES: Left groin incision healing, no surrounding erythema, no drainage. Jean are removed. The area is thoroughly cleaned, Steri-Strips are applied. Dry dressing is reapplied. NEUROLOGICAL: Alert and oriented 3 Bilateral lower extremity arterial ultrasound 12/14/19. Small fluid collection left groin consistent with hematoma. Common iliac triphasic on the right, biphasic on the left. External iliac biphasic on the right, monophasic on the left. In the right lower extremity biphasic flow in the common femoral and profunda, chronically occluded SFA and monophasic flow distally. GONSALO 0.75. In the left lower extremity monophasic common femoral, profunda, and proximal SFA, chronically occluded SFA and monophasic flow distally. Collateral flow is noted. Images are reviewed by Dr. Livingston. ASSESSMENT/PLAN: History of severe PAD/status post a left extensive femoral exploration, with excision of multiple failed grafts and patches on the left femoral artery, biologic patch repair of the artery 11/19/[address] Livingston. Patient is not felt to be a candidate for redo bypass procedure as he has had multiple failed bypasses in the past, and it was felt unlikely the bypass would be successful after so many prior failures. Arterial ultrasound is reviewed as per Dr. Livingston. Hematoma is noted left groin however this will slowly resolve on its own. GONSALO on the right is 0.75, monophasic flow distally. On the left GONSALO is noted to be 0.6, the patient is noted to have collateral flow in the left lower extremity. No additional intervention would be recommended at this time. Plan is for follow-up bilateral lower extremity arterial ultrasound in 3 months with follow-up appointment to review. Jean from the left groin incision has been removed today. The area appears to be healing well. Steri-Strips are applied. Dry dressing is reapplied. Advised the patient he can shower, allow Steri-Strips to fall off on their own. Continue to keep area clean and dry. The patient is currently on aspirin 81 mg daily, Plavix, statin. He is aware to call the office with any changes or concerns, color or temperature changes or development of wounds of the lower extremities. Vital Signs/I&O Vital Signs Date Time Temp Pulse Resp B/P (MAP) Pulse Ox O2 Delivery O2 Flow Rate FiO2 12/19/19 10:00 97.6 48 16 113/62 (79) 97 Room Air 12/18/19 12:15 2 I&O- Last 24 Hours up to 6 AM 12/19/19 06:00 Intake Total 4940 ml Output Total 3875 ml Balance 1065 ml Laboratory Data Labs 24H Laboratory Tests 2 12/19/19 05:43: Immature Granulocyte % (Auto) 0.5, Neutrophils (%) (Auto) 69.5H, Lymphocytes (%) (Auto) 19.5L, Monocytes (%) (Auto) 9.1H, Eosinophils (%) (Auto) 1.1, Basophils (%) (Auto) 0.3, Neutrophils # (Auto) 6.8, Lymphocytes # (Auto) 1.9, Monocytes # (Auto) 0.9H, Eosinophils # (Auto) 0.1, Basophils # (Auto) 0.0, Nucleated Red Blood Cells % (auto) 0.0, Anion Gap 4L, Glomerular Filtration Rate > 60.0, Calcium Level 8.3L, Magnesium Level 2.1, Total Bilirubin 0.3, Aspartate Amino Transf (AST/SGOT) 13, Alanine Aminotransferase (ALT/SGPT) 23, Alkaline Phosphatase 72, Total Protein 5.4L, Albumin 2.5L, Albumin/Globulin Ratio 0.9 CBC/BMP Laboratory Tests 12/18/19 17:40 12/19/19 05:43 Allergies Coded Allergies: Contrast Media (Verified Allergy, Unknown, 12/15/19) Penicillins (Verified Allergy, Unknown, 12/15/19) Quinolones (Verified Allergy, Unknown, 12/15/19) Home Medications Scheduled Amlodipine Besylate (Amlodipine Besylate) 5 Mg Tablet, 5 MG PO DAILY, (Reported) Aspirin (Aspirin) 81 Mg Tab.chew, 81 MG PO DAILY, (Reported) Atorvastatin Calcium (Atorvastatin Calcium) 80 Mg Tablet, 80 MG PO DAILY, (Reported) Bacillus Coagulans (Bacid with Lactospore) 1 Each Capsule, 1 CAP PO WM, (Reported) Cephalexin (Cephalexin) 500 Mg Capsule, 500 MG PO TID, (Reported) Cholecalciferol (Vitamin D3) (Vitamin D3) 1,000 Unit Tablet, 2,000 UNITS PO DAILY, (Reported) Clopidogrel Bisulfate (Clopidogrel) 75 Mg Tablet, 75 MG PO DAILY, (Reported) Finasteride (Finasteride) 5 Mg Tablet, 5 MG PO DAILY for 30 Days, #30 Lisinopril (Lisinopril) 5 Mg Tablet, 5 MG PO DAILY, (Reported) Bonnie Morrison Dec 19, 2019 13:39
[2019-12-19 14:00] VITALS: BP 127/56
--- NOTE | 2019-12-19 14:56 | DS.PDOC ---
Discharge Summary General Date of Admission Dec 16, 2019 at 11:34 Date of Discharge 12/19/2019 Discharge Summary PROCEDURES PERFORMED DURING STAY: [None]. ADMITTING DIAGNOSES: Blood in urine DISCHARGE DIAGNOSES: Bleeding prostate varices s/p fulguration COMPLICATIONS/CHIEF COMPLAINT: Hematuria. HISTORY OF PRESENT ILLNESS: HPI from admitting H&P:Mr. Leonard is a 69-year-old male with a past medical history of coronary artery disease, hypertension, hypercholesterolemia, obstructive sleep apnea and peripheral arterial disease. He was recently admitted for an extensive left femoral exploration with excision of multiple failed grafts and crutches and the left femoral artery, as well as neurologic patch repair of the artery. He currently takes aspirin, Plavix. He was seen in the ED on 12/14 for gross hematuria when he was catheterized and manually irrigated prior to DC. He returns today with ongoing gross hematuria with clots with no improvement. On arrival, hemoglobin 11.1. Hematocrit 35.4. BP 140/82, heart rate 56, respiratory 18. Afebrile. Saturating 98% on room air. CT from 12/14 showing a nonobstructive right calculus, nonobstructive ureteral calculi. He was seen by urology in the ER. Three-way Zambrano inserted for continuous bladder irrigation. Patient admitted for workup of hematuria. HOSPITAL COURSE: 69-year-old male with a past medical history of coronary artery disease, hypertension, hypercholesterolemia, obstructive sleep apnea and peripheral arterial disease. Admitted for persistent hematuria for 2 days. Urology consult. Hemoglobin stable. Possible cystoscopy while inpatient. Status post cystoscopy on 12/18/2019. Discussed with Dr. Yu noted numerous varices on prostate which were cauterized, he expects the bleeding and clots formation to continue especially while patient is on aspirin and Plavix which he is okay for him to continue. Dr. Yu thinks from his perspective and okay for patient to be discharged and follow-up with his own urologist in [place]. #Hematuria: Zambrano initially inserted for continuous bladder irrigation now removed at time of discharge. Urology following. Dr. Yu on consult. Status post cystoscopy on 12/18/2019. Discussed with Dr. Yu, seen numerous varices on prostate which cauterized. #PAD/left femoral artery graft repair: Continue with aspirin and Plavix (discussed this with Dr. Yu agrees need to continue dual antibiotic therapy). Statin. The lateral lower extremity arterial Doppler performed on November 17. Extensive atherosclerotic plaquing is noted throughout. Patient has follow-up with Dr. Livingston in clinic on December 18 and she saw him that morning at bedside in the hospital. Her office will call him later to schedule an outpatient appointment with her. #Acute blood loss anemia: Hemoglobin 9.4 on morning of discharge. Due to hematuria. Need to follow-up with his primary care doctor within 2-5 days of discharge to closely monitor his midlobe level. 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 - as patient is asymptomatic, no need for further immediate cardiac intervention #Alcohol use: CIWA protocol as a precaution #CAD: Continue statin. resume ASA/plavix #HTN Continue home medications. DISCHARGE MEDICATIONS: Please see below. ALLERGIES: Please see below. PHYSICAL EXAMINATION ON DISCHARGE: VITAL SIGNS: Please see below. Constitutional: Awake and alert, in no apparent distress ENT: Sclera are clear. Mucosa is moist. Respiratory: Lungs CTA bilaterally. No respiratory distress. No use of accessory muscles. Cardiovascular: RRR S1 and S2 are normal, no murmur Gastrointestinal: Abdomen is soft, non distended, non tender, BS present. Surgical left groin sadie now removed. Musculoskeletal: No edema. No joint deformities. RUE 5/5, LUE 5/5, BLE 5/5 : Zambrano now removed some blood at urethral meatus and small clots when he urinates. Urine is pink. Neurologic: No focal neurological deficit. Lower extremity pulses +1 bilaterally. Mental Status: A&O x3, normal affect Skin: Warm, dry LABORATORY DATA: Please see below. PROGNOSIS: Fair ACTIVITY: [As tolerated]. DIET: Cardiac low salt DISPOSITION: Home DISCHARGE INSTRUCTIONS: Please follow up with your primary care physician within 1 week from discharge. If you do not have one, please follow up with us to schedule an appointment. Please keep all of your follow up appointments. Please call central to book your appointments with hospital specialists. Please take all your medications as prescribed. Please call/come to Clinic or go to the Emergency Department if - Temp >101, intractable Nausea/Vomiting, Diarrhea, Mouth sores, Headaches, Altered mental status, Seizures, sudden onset of swelling, bleeding, shortness of breath or chest pain. ITEMS TO FOLLOWUP ON ON OUTPATIENT: Follow up with your primary care doctor within 2-5 days of discharge from the hospital Follow-up with your urologist in [place] within 1 week of discharge from the hospital Await phone call from Dr. alamo office for an upcoming appointment DISCHARGE CONDITION: [Stable]. TIME SPENT ON DISCHARGE: Greater than 40 minutes. Vital Signs/I&Os Vital Signs Date Time Temp Pulse Resp B/P (MAP) Pulse Ox O2 Delivery O2 Flow Rate FiO2 12/19/19 14:00 98.0 53 18 127/56 (79) 95 Room Air 12/18/19 12:15 2 I&O- Last 24 Hours up to 6 AM 12/19/19 06:00 Intake Total 4940 ml Output Total 3875 ml Balance 1065 ml Laboratory Data Labs 24H Laboratory Tests 2 12/19/19 05:43: Immature Granulocyte % (Auto) 0.5, Neutrophils (%) (Auto) 69.5H, Lymphocytes (%) (Auto) 19.5L, Monocytes (%) (Auto) 9.1H, Eosinophils (%) (Auto) 1.1, Basophils (%) (Auto) 0.3, Neutrophils # (Auto) 6.8, Lymphocytes # (Auto) 1.9, Monocytes # (Auto) 0.9H, Eosinophils # (Auto) 0.1, Basophils # (Auto) 0.0, Nucleated Red Blood Cells % (auto) 0.0, Anion Gap 4L, Glomerular Filtration Rate > 60.0, Calcium Level 8.3L, Magnesium Level 2.1, Total Bilirubin 0.3, Aspartate Amino Transf (AST/SGOT) 13, Alanine Aminotransferase (ALT/SGPT) 23, Alkaline Phosphatase 72, Total Protein 5.4L, Albumin 2.5L, Albumin/Globulin Ratio 0.9 CBC/BMP Laboratory Tests 12/18/19 17:40 12/19/19 05:43 Discharge Medications Scheduled Amlodipine Besylate (Amlodipine Besylate) 5 Mg Tablet, 5 MG PO DAILY, (Reported) Aspirin (Aspirin) 81 Mg Tab.chew, 81 MG PO DAILY, (Reported) Atorvastatin Calcium (Atorvastatin Calcium) 80 Mg Tablet, 80 MG PO DAILY, (Repo rted) Bacillus Coagulans (Bacid with Lactospore) 1 Each Capsule, 1 CAP PO WM, (Reported) Cephalexin (Cephalexin) 500 Mg Capsule, 500 MG PO TID, (Reported) Cholecalciferol (Vitamin D3) (Vitamin D3) 1,000 Unit Tablet, 2,000 UNITS PO DAILY, (Reported) Clopidogrel Bisulfate (Clopidogrel) 75 Mg Tablet, 75 MG PO DAILY, (Reported) Finasteride (Finasteride) 5 Mg Tablet, 5 MG PO DAILY Lisinopril (Lisinopril) 5 Mg Tablet, 5 MG PO DAILY, (Reported) Allergies Coded Allergies: Contrast Media (Verified Allergy, Unknown, 12/15/19) Penicillins (Verified Allergy, Unknown, 12/15/19) Quinolones (Verified Allergy, Unknown, 12/15/19) SOBEIDA MCADAMS MD Dec 19, 2019 14:56
[2019-12-19] MEDS ORDERED: FLOM0.4C39 PO (14:58)
[2019-12-19] MEDS ORDERED: TAMSULOSIN 0.4 MG CAP PO SCH (21:00)
[2019-12-19] MEDS ORDERED: FINASTERIDE 5 MG TAB PO SCH (21:00)
--- NOTE | 2019-12-22 07:50 | ECGEPIP ---
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 LA conduction disturbance Left axis deviation Low voltages with slow precordial R wave progression and persistent S wave V5 and V V6; body habitus versus pulmonary disease. Rule out prior septal infarction AV block has increased from previous study 12/16/19 Clinical correlation advised Electronically Signed on 12-22-2019 7:50:23 EDT by Mike Weston
== END 2019-12-19 15:41 | disposition home or self-care (01) | DRG 717 ==
LOC: M ED 08:58 → M ED INP 11:34 → ENRESERV 12:20 → M MSPAV 13:15
PROVIDERS: ADMIT Family Medicine; ATTEND Family Medicine
PROC: 0TCB8ZZ Extirpation of Matter from Bladder, Via Natural or Artificial Opening Endoscopic (ICD-10-PCS; 2019-12-18)
PROC: 0W3R8ZZ Control Bleeding in Genitourinary Tract, Via Natural or Artificial Opening Endoscopic (ICD-10-PCS; principal; 2019-12-18 10:00)
DX: N42.89 Other specified disorders of prostate (principal); D62 Acute posthemorrhagic anemia; I25.10 Atherosclerotic heart disease of native coronary artery without angina pectoris; I10 Essential (primary) hypertension; E78.2 Mixed hyperlipidemia; G47.33 Obstructive sleep apnea (adult) (pediatric); R31.0 Gross hematuria; I70.213 Atherosclerosis of native arteries of extremities with intermittent claudication, bilateral legs; N40.1 Benign prostatic hyperplasia with lower urinary tract symptoms; I86.8 Varicose veins of other specified sites; I44.1 Atrioventricular block, second degree; E78.5 Hyperlipidemia, unspecified; Z72.89 Other problems related to lifestyle; Z79.82 Long term (current) use of aspirin; Z79.02 Long term (current) use of antithrombotics/antiplatelets; Z79.899 Other long term (current) drug therapy; Z95.820 Peripheral vascular angioplasty status with implants and grafts; Z88.0 Allergy status to penicillin; Z98.84 Bariatric surgery status; Z86.718 Personal history of other venous thrombosis and embolism; Z88.1 Allergy status to other antibiotic agents; Z91.041 Radiographic dye allergy status

== ENCOUNTER 2019-12-21 17:12 | Inpatient (IN) | payer MEDICARE ==
[~2019-12-21] VITALS: Ht 177.8 cm; Wt 86.3 kg
[~2019-12-21 17:12] MED LIST changes: +BACI1CAP PO; +CEPH500C PO; +FINA5TAB2 PO; +FLOM0.4C39 PO
[2019-12-21 19:15] LABS: BASO % 0.6 % (0.0-1.0); EOS # 0.3 10^3/uL (0.0-0.5); EOS % 3.6 % (0.0-3.0); HEMATOCRIT 29.9 % (42.0-52.0); HEMOGLOBIN 9.6 g/dl (13.5-17.5); LYMPH # 1.8 10^3/uL (1.5-5.0); MEAN CORPUSCULAR HEMOGLOBIN 31.1 pg (27.0-33.0); MEAN CORPUSCULAR HGB CONC 32.1 g/dl (32.0-36.5); MEAN CORPUSCULAR VOLUME 96.8 fl (80.0-96.0); MONO # 0.7 10^3/uL (0.0-0.8); MONO % 9.6 % (0.0-5.0); NEUTROPHILS # 4.2 10^3/uL (1.5-8.5); NEUTROPHILS % 59.5 % (36.0-66.0); PLATELET COUNT, AUTOMATED 228 10^3/uL (150-450); RED BLOOD COUNT 3.09 10^6/uL (4.30-6.10)
[2019-12-21 19:27] LABS: INR 0.96
[2019-12-21 19:28] LABS: PARTIAL THROMBOPLASTIN TIME 33.5 SECONDS (24.2-38.5)
[2019-12-21 19:42] LABS: BLOOD UREA NITROGEN 14 MG/DL (7-18); CALCIUM LEVEL 8.7 MG/DL (8.8-10.2); CARBON DIOXIDE LEVEL 25 MEQ/L (21-32); CHLORIDE LEVEL 108 MEQ/L (98-107); CREATININE FOR GFR 0.83 MG/DL (0.70-1.30); GLOMERULAR FILTRATION RATE > 60.0 (>42); GLUCOSE, FASTING 105 MG/DL (70-100); SODIUM LEVEL 140 MEQ/L (136-145)
--- NOTE | 2019-12-21 20:42 | IPNPDOC ---
Text Note Date of Service The patient was seen on 12/21/19. NOTE TIME OF SERVICE 910PM is a 69 yr old w a hx of CKD, CAD w stents 3 yrs ago , PAD w stents 18 yrs ago, gastricbypass, HTN and dyslipidemia who underwent fulguration of bleeding prostate varices a few days ago; today he presented w c/o abdominal pain and anuria that resolved after naidu placement; he continues to have gross hematuria will be admitted for management of the later and followed by Urology. -We will hold the Eliquis, f/u serial Hg and iron studies and aim for a Hg >8. -He drinks daily therefore we will place the CIWA order set. rest per 's H&P VS,[place], I+O VS, [place], I+O Laboratory Tests 12/21/19 19:02 Vital Signs Date Time Temp Pulse Resp B/P (MAP) Pulse Ox O2 Delivery O2 Flow Rate FiO2 12/21/19 19:50 97.5 57 18 130/61 (84) 96 12/21/19 17:15 Room Air DENG COOK MD Dec 21, 2019 20:42
[2019-12-21] MEDS ORDERED: FLOM0.4C39 PO (21:31)
[2019-12-21] MEDS ORDERED: ASPI-161 PO (21:31)
[2019-12-21] MEDS ORDERED: FINA5TAB2 PO (21:31)
[2019-12-21 21:41] LABS: FERRITIN 122 NG/ML (26-388); IRON (FE) 33 UG/DL (65-175); PERCENT SATURATION 13.4 % (19.7-50.0); TOTAL IRON BINDING CAPACITY 246 UG/DL (250-450)
[2019-12-21 21:51] LABS: FOLATE 7.8 NG/ML (>5.4); VITAMIN B12 LEVEL 287 PG/ML (247-911)
[2019-12-21] MEDS: ACETAMINOPHEN TAB 650MG DOSE (2X325MG) PO PRN (22:27)
--- NOTE | 2019-12-21 22:58 | SMCUROLCON ---
Urology Consultation General Date of Consultation 12/21/19 Reason For Consultation This patient is seen for Gross Hematuria. History of Present Illness The patient is a 69-year-old male with a past medical history for hematuria after being placed on eliquis after a vascular bypass procedure. 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 These were fulgurated and he was sent home. His bleeding had been controlled at that time but came back quite heavy this afternoon and he presented back to the emergency room. Catheter was inserted for 1700 mL of fluids and manually irrigated until clear. Despite this, he continues to have some hematuria from the prostatic varices. Urology consult was therefore called. Family History Significant Family History: Diabetes, Heart disease, Hypertension, Vascular disease, Hyperlipidemia, Other (sleep apnea kidney stones hematuria) Social History * Smoker: former Smoker Drugs: denies Medications Current Medications Current Medications Medications (Trade) Dose Ordered Sig/Dario Route PRN Reason Start Time Stop Time Status Last Admin Dose Admin Acetaminophen (Tylenol Tab) 650 mg Q6HP PRN PO PAIN / FEVER 12/21/19 21:15 12/21/19 22:27 Amlodipine Besylate (Norvasc) 5 mg DAILY PO 12/22/19 09:00 Aspirin (Ecotrin) 81 mg DAILY PO 12/22/19 09:00 Atorvastatin Calcium (Lipitor) 80 mg DAILY PO 12/22/19 09:00 Clopidogrel Bisulfate (PLAVix) 75 mg DAILY PO 12/22/19 09:00 Finasteride (Proscar) 5 mg QHS PO 12/21/19 21:00 Home Med (Med Rec Complete!) ASDIRECTED XX 12/21/19 21:45 12/21/19 21:33 DC Lisinopril (Prinivil) 5 mg DAILY PO 12/22/19 09:00 Tamsulosin HCl (Flomax) 0.4 mg QHS PO 12/21/19 21:00 Vitamin D (Vitamin D) 2,000 units DAILY PO 12/22/19 09:00 Allergies Allergies: Coded Allergies: Contrast Media (Verified Allergy, Unknown, 12/15/19) Penicillins (Verified Allergy, Unknown, 12/15/19) Quinolones (Verified Allergy, Unknown, 12/15/19) codeine (Verified Adverse Reaction, Unknown, PASSED OUT, 12/21/19) Review of Systems General: Reports: Normal Appetite; Denies: Fatigue, Malaise Constitutional: Denies: Fever, Chills, Sweats, Weakness, Malaise Eyes: Denies: Pain, Vision change ENT: Denies: Head Aches, Sore Throat, Epistaxis Skin: Denies: Rash, Lesions, Breakdown, Nail Changes Pulmonary: Denies: Dyspnea, Cough Cardiovascular: Denies Chest Pain, Denies Palpitations Gastrointestinal: Denies: Nausea, Vomiting, Abdominal Pain Genitourinary: Denies: Dysuria, Frequency, Incontinence, Hematuria Hematologic: Denies: Bruising, Bleeding Excessively Endocrine: Denies: Polydipsia, Polyphagia, Polyuria Musculoskeletal: Denies: Neck Pain, Back Pain Neurological: Denies: Weakness, Numbness, Incoordination, Change in Speech Psych: Reports: Mood Normal; Denies: Anxiety, Depression Physical Examination General Exam: Alert, No Acute Distress EYE EXAM: PERRLA, Conjunctiva & lids normal, EOMI; No: Sclera icteric ENT EXAM: Atraumatic, Mucous membr. moist/pink, Pharynx Normal Neck Exam: Supple; No: JVD, thyromegaly Chest Exam: Clear to auscultation, Normal air movement Abdomen Exam: Normal Bowel Sounds, Soft; No: Tenderness, Hepatospenomegaly Male Exam: Normal Genital Exam Male Exam Patient has an indwelling three-way 22 Faroese catheter is draining hematuric urine. Vital Signs/I&O Vital Signs Date Time Temp Pulse Resp B/P (MAP) Pulse Ox O2 Delivery O2 Flow Rate FiO2 12/21/19 19:50 97.5 57 18 130/61 (84) 96 12/21/19 17:15 Room Air Laboratory Data 24H Labs Laboratory Tests 2 12/21/19 19:02: Immature Granulocyte % (Auto) 0.7, Neutrophils (%) (Auto) 59.5, Lymphocytes (%) (Auto) 26.0, Monocytes (%) (Auto) 9.6H, Eosinophils (%) (Auto) 3.6H, Basophils (%) (Auto) 0.6, Neutrophils # (Auto) 4.2, Lymphocytes # (Auto) 1.8, Monocytes # (Auto) 0.7, Eosinophils # (Auto) 0.3, Basophils # (Auto) 0.0, Nucleated Red Blood Cells % (auto) 0.0, Prothrombin Time 13.0, Prothromb Time International Ratio 0.96, Activated Partial Thromboplast Time 33.5, Anion Gap 7L, Glomerular Filtration Rate > 60.0, Calcium Level 8.7L, Iron Level 33L, Total Iron Binding Capacity 246L, Transferrin % Saturation 13.4L, Ferritin 122, Vitamin B12 Level 287, Folate 7.8 CBC/BMP Laboratory Tests 12/21/19 19:02 Assessment Hematuria from prostate varices Plan Zambrano catheter was placed on mild traction. He will need to be connected to CBI. If the hematuria does not clear we may need to again stop his Ellik question consider another prostate fulguration. Time Spent on Consult: Time Spent / Consult (Minutes): 70 RUBEN JORDAN MD Dec 21, 2019 22:58
--- NOTE | 2019-12-21 23:35 | HPEPDOC ---
[facility] Medical History & Physical Date of Admission Dec 21, 2019 Date of Service: Dec 21, 2019 Attending Physician: DENG COOK MD History and Physical CHIEF COMPLAINT: Hematuria HISTORY OF PRESENT ILLNESS: Patient is a 69 year old male who presented to the [facility] Emergency Department with complaint of hematuria. He was recently discharged from [facility] on 12/19/2019 for which he was seen for hematuria. Patient has been evaluated by Urology at his previous hospitalization and received a cystoscopy which demonstrated multiple varices on the prostate that were cauterized. Additionally, He has a history of Peripheral arterial disease with femoral bypass grafting complicated by multiple graft failures and a recent left extensive femoral exploration with excision of multiple failed grafts and patches on the left femoral artery as well as ASCVD with cardiac stents placed 2-3 years ago. The patient has remained on aspirin and plavix due to his high risk of femoral graft occlusion. Decision was made at the patients previous hospitalization to continue his aspirin and plavix and follow-up outpatient with his urologist in [place] with the understanding that he will likely develop hematuria. Since discharge the patient had stated that he was doing relatively well. He stated that he did notice some pink/red urine but understood that it was expected. However, today he had tried to go to the bathroom and was unable to urinate. He then developed abdominal pain and presented to the ER. In the ER the patient was vitally stable. He was found to be anemic. A naidu catheter was inserted and the patient voided pink/red urine and clots. Urology was contacted with recommendations for continuous bladder irrigation. Hospitalist Service was consulted and the patient was admitted for further evaluation and management PAST MEDICAL HISTORY: 1. ASCVD with stents placed x2 (2-3 years ago) 2. Peripheral Arterial Disease with femoral bypass grafting complicated by multiple graft failures 3. Hypertension 4. Hyperlipidemia 5. History of MALACHI 6. History of right lower extremity DVT PAST SURGICAL HISTORY: 1. Cardiac Stent placement x2 2. Bilateral femoral bypass grafts with recent left femoral extensive exploration and removal of failed grafts 3. Iliac Stents 4. Gastric Bypass Surgery 5. Colonoscopy 6. Right leg fracture repair SOCIAL HISTORY: Patient is a former smoker. He is and lives at home with his . He is independent with his ADLs. He states that he is an occasional drinker. He denies any IV or illicit drug use. He is currently retired. 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 REVIEW OF SYSTEMS: CONSTITUTIONAL: Denies fevers, chills, unintentional weightloss or weight gain. Denies night sweats HEENT: Denies dysphagia. Denies odynophagia. Denies changes in vision CARDIOVASCULAR:. Denies chest pain, denies palpitations. Denies feelings of the heart racing. RESPIRATORY: Denies shortness of breath. Denies wheezing. Denies cough. GASTROINTESTINAL: Denies abdominal pain. Denies nausea, vomiting, diarrhea, constipation. GENITOURINARY:. Admits to difficulty with urination. Admits to blood and urine. Denies dysuria. SKIN:. Denies any rashes or lesions. MUSCULOSKELETAL:. Denies any muscle weakness. NEUROLOGICAL:. Denies any changes in gait or vision. Denies any change in speech. PSYCHIATRIC:. Denies depression or anxiety. ENDOCRINE: Denies heat intolerance or cold intolerance HEMATOLOGIC/LYMPHATIC:. Admits to easy bleeding. Admits to history of right leg deep vein thrombosis. Admits to peripheral artery disease. Denies pulmonary embolism. HOME MEDICATIONS: Please see below. PHYSICAL EXAMINATION: VITAL SIGNS: Temperature 97.5, pulse, 57, respiratory rate 18, blood pressure 130/61, pulse oximetry, 96 % on room air. GENERAL APPEARANCE: Patient Is awake, alert and oriented. He does not appear in any acute distress. He is lying comfortably on stretcher. HEENT: Atraumatic normocephalic. Eyes are nonicteric. Trachea is midline.. Mucous members are pink and moist CARDIOVASCULAR:. Normal S1, S2, regular rate and rhythm. 2/6 systolic ejection murmur. No clicks or rubs LUNGS:. Clear vesicular breath sounds bilaterally. Good respiratory effort. No wheezes, rhonchi or rales. Symmetric chest expansion. ABDOMEN:. Soft nondistended nontender. No rebound tenderness or guarding. Normoactive bowel sounds throughout. Naidu catheter in place draining pink urine. EXTREMITIES: No edema. Full and equal pulses in bilateral upper and lower extremities. NEUROLOGICAL:. No focal neurological deficits. PSYCHIATRIC: Noted. Affect appear appropriate. LABORATORY DATA: See below. MICROBIOLOGY: Please see below. ASSESSMENT: Patient is a 69-year-old male who presented to the [facility] emergency department with complaint of hematuria. Patient has a history of hematuria with recent hospitalization during which he received a cystoscopy and cauterization of multiple varices on the prostate. Patient was planned to follow-up outpatient with his urologist, however, had developed urinary retention likely secondary to obstruction from clot. In the ER, Naidu catheter was inserted. Urology was counseled that and continuous bladder irrigation was initiated. . PLAN: 1. Gross hematuria, likely secondary to bleeding varices/clot in the setting of chronic antiplatelet therapy. -Patient has a history of gross hematuria and has recently received a cystoscopy per urology. At the time he was identified to have multiple varices on the prostate, which is suspected to be the source of bleeding. At his previous hospitalization he received cauterization of the varices and the patient was discharged home with instructions to follow-up outpatient with his urologist in [place]. Unfortunately, the patient developed urinary retention likely secondary to clot obstruction. Urinary catheter was inserted in the ER with urology recommendations for continuous bladder irrigation -Will continue Continuous bladder irrigation -Patient currently remaining on ASA and Plavix given his history of PVD with femoral graft failure and recent cardiac stent placement. 2. Asymptomatic Anemia likely 2/2 chronic hematuria and underlying iron deficiency anemia -Patient has anemia at baseline with an average hemoglobin of 10-11. His baseline anemia is likely secondary to vitamin deficiency as he has a history of gastric bypass. Additionally, he has developed hematuria which is likely contributing to his anemia. At this time, the patient is asymptomatic. However given his history of cardiac disease, will consider a transfusion threshold of 9.0 -Iron studies ordered and demonstrate iron deficiency. Will supplement with oral iron. Given his history of gastric bypass, he should be on multivitamins. -Will trend CBC daily 3. ASCVD and PVD -Given his extensive history of PVD with bilateral femoral graft and multiple graft failures patient will need to continue his Aspirin and Plavix. -Continue Statin 4. 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 Asymptomatic. -Patient was instructed previously to follow-up outpatient with Business Support Manager 5. HTN -Continue Norvasc 6. BPH -Continue Finasteride and Flomax 7. DVT Prophylaxis -TEDs and Sequentials Vital Signs Vital Signs Date Time Temp Pulse Resp B/P (MAP) Pulse Ox O2 Delivery O2 Flow Rate FiO2 12/21/19 19:50 97.5 57 18 130/61 (84) 96 12/21/19 17:15 Room Air Laboratory Data Labs 24H Laboratory Tests 2 12/21/19 19:02: Immature Granulocyte % (Auto) 0.7, Neutrophils (%) (Auto) 59.5, Lymphocytes (%) (Auto) 26.0, Monocytes (%) (Auto) 9.6H, Eosinophils (%) (Auto) 3.6H, Basophils (%) (Auto) 0.6, Neutrophils # (Auto) 4.2, Lymphocytes # (Auto) 1.8, Monocytes # (Auto) 0.7, Eosinophils # (Auto) 0.3, Basophils # (Auto) 0.0, Nucleated Red Blood Cells % (auto) 0.0, Prothrombin Time 13.0, Prothromb Time International Ratio 0.96, Activated Partial Thromboplast Time 33.5, Anion Gap 7L, Glomerular Filtration Rate > 60.0, Calcium Level 8.7L, Iron Level 33L, Total Iron Binding Capacity 246L, Transferrin % Saturation 13.4L, Ferritin 122, Vitamin B12 Level 287, Folate 7.8 CBC/BMP Laboratory Tests 12/21/19 19:02 Home Medications Scheduled Amlodipine Besylate (Amlodipine Besylate) 5 Mg Tablet, 5 MG PO DAILY Aspirin (Aspirin EC) 81 Mg Tablet.dr, 81 MG PO DAILY Atorvastatin Calcium (Atorvastatin Calcium) 80 Mg Tablet, 80 MG PO DAILY Bacillus Coagulans (Bacid with Lactospore) 1 Each Capsule, 1 CAP PO WM Cholecalciferol (Vitamin D3) (Vitamin D3) 1,000 Unit Tablet, 2,000 UNITS PO DAILY Clopidogrel Bisulfate (Clopidogrel) 75 Mg Tablet, 75 MG PO DAILY Finasteride (Finasteride) 5 Mg Tablet, 5 MG PO QHS Lisinopril (Lisinopril) 5 Mg Tablet, 5 MG PO DAILY Tamsulosin HCl (Flomax) 0.4 Mg Capsule, 0.4 MG PO QHS Allergies Coded Allergies: Contrast Media (Verified Allergy, Unknown, 12/15/19) Penicillins (Verified Allergy, Unknown, 12/15/19) Quinolones (Verified Allergy, Unknown, 12/15/19) codeine (Verified Adverse Reaction, Unknown, PASSED OUT, 12/21/19) A-FIB/CHADSVASC A-FIB History Current/History of A-Fib/PAF?: No GME ATTESTATION GME ATTESTATION My faculty preceptor for this patient encounter was physically present during the encounter and was fully available. All aspects of the patient interview, ex amination, medical decision making process, and medical care plan development were reviewed and approved by the faculty preceptor. The faculty preceptor is aware and concurs with the plan as stated in the body of this note and will attest to such by his/her cosignature. ATTENDING NOTE Reviewed the H&P please see my addendum from 12/21/19. ALECIA ANN DO Dec 21, 2019 23:34 DENG COOK MD Dec 22, 2019 03:34
[2019-12-21] MEDS: FERROUS SULFATE 325MG TAB PO SCH (23:57)
[2019-12-21] MEDS: TAMSULOSIN 0.4 MG CAP PO SCH (23:57)
[2019-12-21] MEDS: FINASTERIDE 5 MG TAB PO SCH (23:59)
[2019-12-22 00:30] VITALS: BP 142/78
[2019-12-22] MEDS ORDERED: LORazepam 2 MG TAB PO PRN (01:00)
[2019-12-22] MEDS: THIAMINE 100 MG TAB PO SCH ×3 (01:40→20:55)
[2019-12-22] MEDS: RAMELTEON 8 MG TAB (ROZEREM) PO SCH ×2 (01:40→20:56)
[2019-12-22 04:08] LABS: HEMATOCRIT 27.5 % (42.0-52.0); HEMOGLOBIN 8.8 g/dl (13.5-17.5); MEAN CORPUSCULAR HEMOGLOBIN 31.1 pg (27.0-33.0); MEAN CORPUSCULAR VOLUME 97.2 fl (80.0-96.0); PLATELET COUNT, AUTOMATED 220 10^3/uL (150-450); RED BLOOD COUNT 2.83 10^6/uL (4.30-6.10); WHITE BLOOD COUNT 7.7 10^3/uL (4.0-10.0)
[2019-12-22 04:33] LABS: BLOOD UREA NITROGEN 12 MG/DL (7-18); CALCIUM LEVEL 8.2 MG/DL (8.8-10.2); CARBON DIOXIDE LEVEL 26 MEQ/L (21-32); CHLORIDE LEVEL 111 MEQ/L (98-107); CREATININE FOR GFR 0.77 MG/DL (0.70-1.30); GLOMERULAR FILTRATION RATE > 60.0 (>42); GLUCOSE, FASTING 141 MG/DL (70-100); POTASSIUM SERUM 3.7 MEQ/L (3.5-5.1); SODIUM LEVEL 144 MEQ/L (136-145)
[2019-12-22 06:00] VITALS: BP 137/76
[2019-12-22] MEDS: amLODIPine 5 MG TAB PO SCH (09:00)
[2019-12-22] MEDS: VITAMIN D 1,000 INTERNATIONAL UNITS TABLET PO SCH (09:14)
[2019-12-22] MEDS: CLOPIDOGREL 75 MG TAB PO SCH (09:14)
[2019-12-22] MEDS: FOLIC ACID 1 MG TAB PO SCH (09:14)
[2019-12-22] MEDS: ATORVASTATIN 20 MG TAB PO SCH (09:14)
[2019-12-22] MEDS: MULTIVITAMINS/MINERALS THERAP 1 TAB PO SCH (09:14)
[2019-12-22] MEDS: ASPIRIN 81 MG ENTERIC TAB PO SCH (09:15)
[2019-12-22] MEDS: FERROUS SULFATE 325MG TAB PO SCH ×2 (09:18→20:56)
[2019-12-22] MEDS: lisinopriL 5 MG TAB PO SCH (09:56)
[2019-12-22] MEDS ORDERED: oxyBUTYnin 5 MG TAB PO PRN (13:00)
[2019-12-22] MEDS: NEOSPORIN TOP OINT 15GM TOP PRN (13:31)
[2019-12-22 14:00] VITALS: BP 136/70
--- NOTE | 2019-12-22 17:46 | IPNPDOC ---
Text Note Date of Service The patient was seen on 12/22/19. NOTE Subjective: Patient seen at bedside on 12/22/2019. He denies having any abdominal pain this morning. He has a Zambrano in place which has clear urine. He denies having any other acute symptoms. Objective: General: Well developed, Patient is awake, alert, oriented times three, sitting in bed , no apparent distress. Eyes: Conjunctiva clear, pupils equal round and reactive to light and accommodation. Cardiovascular: S1, S2, normal rhythm, appreciated a grade 2 systolic murmur, rub, or gallop. Respiratory: Chest is clear to auscultation bilaterally, No rhonchi, wheezes or rubs appreciated. Abdomen: Soft, bowel sounds positive, no bruits. No tenderness on palpation. Liver edge, spleen, kidney not felt, no masses. Genitourinary: Hematuria, Zambrano in place with continuous irrigation. To prevent clots seen. Central nervous system (GLASS WORKER): Awake, alert and fully oriented. Motor function able to move all limbs. Skin: A healed incision is seen in his groin area, as per patient he has his clips removed 3 days ago, mild redness noted in the medical of this incision. No discharge noted. ASSESSMENT: Patient is a 69-year-old male past medical history ASCVD S/P stents, PAD with femoral bypass past grafting complicated by multiple graft failures, hypertension, dyslipidemia, MALACHI, right lower extremity DVT who presented to the [facility] emergency department with complaint of hematuria. Patient has a history of hematuria with recent hospitalization during which he received a cystoscopy and cauterization. Patient was planned to follow-up out patient with his urologist, however, had developed urinary retention likely secondary to obstruction from clot. In the ER, Zambrano catheter was inserted. Urology was counseled that and continuous bladder irrigation was initiated. Plan: 1. Gross hematuria 2/2 clots. Patient is currently on aspirin and Plavix given the history of PVD with femoral graft failure and recent cardiac stent placement. He is having gross hematuria most likely due to medications he is on and history of varices of prostate Urology was consulted and recommended for continuous bladder irrigation. Since morning patient had a very small clots and clear urine. Patient is not in any pain, will continue to monitor. - Remains hemodynamically stable / hemoglobin stable Of note: He had a recent hospitalization during which she received catheterization for evaluation of prostate and was discharged home with instruc tions to follow-up outpatient with urologist in [place]. 2. Asymptomatic anemia 2/2 hematuria vs iron deficiency anemia 2/2 gastric bypass: Patient's hemoglobin this morning was 8.8, MCV 97.2, Iron studies were done, iron 3, TIBC 246, transferrin 13.4 will continue oral iron supplements, thiamine and folic acid. Transfuse if hemoglobin falls below 8. Will continue to monitor CBC 3. Peripheral vascular disease: Patient had bilateral femoral graft with multiple graft failure and patient is on aspirin and Plavix. 4. ASCVD S/p stents: Will continue statin because of his cardiovascular risk. Will continue aspirin 81 mg. 5. BPH: Will continue finasteride and Flomax. 6. Hypertension: Will continue Norvasc 5 mg by mouth and lisinopril 5 mg by mouth. 7. DVT prophylaxis: Teds and sequentials VS,Fishbone, I+O VS, Fishbone, I+O Laboratory Tests 12/21/19 19:02 12/22/19 03:45 12/22/19 09:36 12/22/19 15:24 Vital Signs Date Time Temp Pulse Resp B/P (MAP) Pulse Ox O2 Delivery O2 Flow Rate FiO2 12/22/19 14:00 98.5 51 17 136/70 (92) 94 12/22/19 00:30 Room Air I&O- Last 24 Hours up to 6 AM 12/22/19 05:59 Output Total 1910 ml Balance -1910 ml GME ATTESTATION GME ATTESTATION My faculty preceptor for this patient encounter was physically present during the encounter and was fully available. All aspects of the patient interview, examination, medical decision making process, and medical care plan development were reviewed and approved by the faculty preceptor. The faculty preceptor is aware and concurs with the plan as stated in the body of this note and will attest to such by his/her cosignature. ATTENDING NOTE I, Geronimo Amor, have independently examined this patient and performed my own physical exam, as well as reviewed the documentation and edited where necessary. I have discussed in detail with the resident / student the findings and plan of treatment as documented by the resident / student and edited their note. I agree with their findings and treatment plan and have edited their documentation. I will continue to follow the patient during this hospital stay. Leona Coon MD Dec 22, 2019 17:33 GERONIMO AMOR MD Dec 22, 2019 18:01
[2019-12-22] MEDS: BELLADONNA 16.2mg/OPIUM 60mg 1 EA SUPP PR PRN (19:07)
[2019-12-22] MEDS ORDERED: diphenhydrAMINE 50MG/ML VIAL (J1200) IV ONE (20:45)
[2019-12-22] MEDS: TAMSULOSIN 0.4 MG CAP PO SCH (20:55)
[2019-12-22] MEDS: FINASTERIDE 5 MG TAB PO SCH (20:56)
[2019-12-22 22:00] VITALS: BP 105/60
[2019-12-23] MEDS: BELLADONNA 16.2mg/OPIUM 60mg 1 EA SUPP PR PRN ×4 (03:02→21:01)
[2019-12-23 06:00] VITALS: BP 114/62
[2019-12-23 06:21] LABS: HEMATOCRIT 27.6 % (42.0-52.0); HEMOGLOBIN 8.9 g/dl (13.5-17.5); MEAN CORPUSCULAR HEMOGLOBIN 31.6 pg (27.0-33.0); MEAN CORPUSCULAR HGB CONC 32.2 g/dl (32.0-36.5); MEAN CORPUSCULAR VOLUME 97.9 fl (80.0-96.0); PLATELET COUNT, AUTOMATED 199 10^3/uL (150-450); RED BLOOD COUNT 2.82 10^6/uL (4.30-6.10); WHITE BLOOD COUNT 8.2 10^3/uL (4.0-10.0)
[2019-12-23 06:47] LABS: BLOOD UREA NITROGEN 13 MG/DL (7-18); CALCIUM LEVEL 8.4 MG/DL (8.8-10.2); CARBON DIOXIDE LEVEL 28 MEQ/L (21-32); CHLORIDE LEVEL 109 MEQ/L (98-107); CREATININE FOR GFR 0.83 MG/DL (0.70-1.30); GLOMERULAR FILTRATION RATE > 60.0 (>42); GLUCOSE, FASTING 105 MG/DL (70-100); SODIUM LEVEL 143 MEQ/L (136-145)
[2019-12-23] MEDS: FOLIC ACID 1 MG TAB PO SCH (08:57)
[2019-12-23] MEDS: MULTIVITAMINS/MINERALS THERAP 1 TAB PO SCH (08:57)
[2019-12-23] MEDS: CLOPIDOGREL 75 MG TAB PO SCH (08:57)
[2019-12-23] MEDS: FERROUS SULFATE 325MG TAB PO SCH ×2 (08:57→21:01)
[2019-12-23] MEDS: VITAMIN D 1,000 INTERNATIONAL UNITS TABLET PO SCH (08:57)
[2019-12-23] MEDS: THIAMINE 100 MG TAB PO SCH ×2 (08:58→21:01)
[2019-12-23] MEDS: ATORVASTATIN 20 MG TAB PO SCH (08:58)
[2019-12-23] MEDS: ASPIRIN 81 MG ENTERIC TAB PO SCH (08:58)
[2019-12-23] MEDS: amLODIPine 5 MG TAB PO SCH (09:00)
[2019-12-23] MEDS: lisinopriL 5 MG TAB PO SCH (09:05)
--- NOTE | 2019-12-23 12:00 | IPNPDOC ---
Text Note Date of Service The patient was seen on 12/23/19. NOTE Subjective: Patient seen at bed side on 12/23/2019. He reports not getting a good night sleep. He was given bendryl middle of night and then got some sleep. He reports having some clots fallen off and he was using the restroom. He denies having any blood in his stool. He denies having any pain. Objective: General: Patient is awake, alert, oriented 3 laying in bed, no apparent distress. Cardiovascular: S1 and S2 heard, normal rhythm, grade 2 systolic murmur heard over the left second intercostal region (patient is aware of having this murmur), no rub or gallop. Respiratory: Chest is clear to auscultate bilaterally, no rhonchi, wheezes or rubs appreciated. Abdomen: Soft no bruits heard, positive bowel sounds, mild tenderness on palpation on the left lower quadrant. Rest of the abdomen no tenderness noted. Liver edge and spleen and no masses felt. Genitourinary: Patient has Zambrano in place, with continuous irrigation. Noted some pink color urine and his urinary back, reports he was having some clots overnight. Central nervous system: Awake, alert and fully oriented. Motor function able to move all limbs. Skin: Healed incisions noted on bilateral thighs and the recent incision on his left groin. Assessment: She is a 69-year-old male patient with past medical history of ASCVD's A/P stents, PAD with femoral bypass grafting complicated by multiple graft failures, hypertension, dyslipidemia, MALACHI, right lower extremity DVT who presented to the [facility] emergency department with complains of hematuria. She has an history of hematuria with recent hospitalization during which he received a cystoscopy and catheterization. And to follow up outpatient with his urologist in [place] however he developed urinary retention likely secondary to obstruction from clot. In the emergency department, Zambrano catheter was inserted. Urology was consulted for the same and recommended continuous bladder irrigation. Plan: 1. Gross hematuria 2/2 clots Patient is currently on aspirin and Plavix given his history of PVD with femoral graft failure and recent cardiac stent placement. He is having gross hematuria most likely due to medications he is on an history of varices of prostate. Spoke to Dr. Andino she said she would think of considering doing a cystoscopy if patient is still developing clots. Will get Covid testing done, if in case he needs a procedure. Patient denies having any pain but continue to monitor. 2. Asymptomatic anemia 2/2 hematuria vs iron deficiency anemia 2/2 gastric bypass: Patient's hemoglobin this morning was 8.9. Continue oral iron supplements, thiamine and folic acid. Will continue to monitor CBC. 3. Peripheral vascular disease: Patient has bilateral femoral graft with multiple graft failure and patient is on aspirin and Plavix [as recommended by vascular surgeon] 4. ASCVD status post stents: Will continue statin. continue aspirin 81 mg. 5. BPH: Continue finasteride and Flomax. 6. Hypertension: Continue Norvasc 5 MG by mouth and lisinopril 5 mg by mouth. Patient did not get a.m. Norvasc as his blood pressure was 11 2/58. 7. DVT prophylaxis: Teds and sequentials. VS,Fishbone, I+O VS, Fishbone, I+O Laboratory Tests 12/22/19 15:24 12/22/19 21:15 12/23/19 06:10 Vital Signs Date Time Temp Pulse Resp B/P (MAP) Pulse Ox O2 Delivery O2 Flow Rate FiO2 12/23/19 09:05 112/58 12/23/19 06:00 51 12/23/19 06:00 98.4 18 96 Room Air I&O- Last 24 Hours up to 6 AM 12/23/19 06:00 Intake Total 560 ml Output Total 3450 ml Balance -2890 ml GME ATTESTATION GME ATTESTATION My faculty preceptor for this patient encounter was physically present during the encounter and was fully available. All aspects of the patient interview, examination, medical decision making process, and medical care plan development were reviewed and approved by the faculty preceptor. The faculty preceptor is aware and concurs with the plan as stated in the body of this note and will attest to such by his/her cosignature. ATTENDING NOTE I, Geronimo Lepe, have independently examined this patient and performed my own physical exam, as well as reviewed the documentation and edited where necessary. I have discussed in detail with the resident / student the findings and plan of treatment as documented by the resident / student and edited their note. I agree with their findings and treatment plan and have edited their documentation. I will continue to follow the patient during this hospital stay. Leona Coon MD Dec 23, 2019 11:39 GERONIMO LEPE MD Dec 23, 2019 14:04
[2019-12-23] MEDS: ACETAMINOPHEN TAB 650MG DOSE (2X325MG) PO PRN (13:35)
[2019-12-23 14:00] VITALS: BP_SYST 121; BP_SYST 128; BP_DIAS 68
--- NOTE | 2019-12-23 14:45 | IPNPDOC ---
Text Note Date of Service The patient was seen on 12/23/19. NOTE Patient was seen today and he was concerned because he did have some blood clots last night requiring irrigation. This morning though I irrigated him and there are no blood clots and the urine is quite light still on CBI. We discussed that usually we will not find something if we go to the operating room when there is not very active bleeding and clotting. My recommendation is to wait and see how he does overnight. Physical exam: His vital signs are stable as is his H&H. He is alert and oriented 3 his heart has a regular rate and rhythm and medicine has appreciated a grade 2 systolic murmur. His chest is clear. He has no CVA tenderness. His abdomen is soft and nontender without rebound or guarding. The Zambrano catheter is in place with continuous bladder irrigation and is very light pink at this time even after irrigation. His extremities show his healed incision and there was no cyanosis clubbing or edema. Impression -Gross hematuria in a patient actively on aspirin and Plavix because of his history of PVD and the femoral graft failure and recent cardiac stent placement -Status post cystoscopy and clot irrigation by Dr. Yu on 12/18/19 and prostatic varicoses were seen and fulgurated -Asymptomatic anemia by H&H has been stable Plan: -If patient has problems overnight with clots or significant bleeding then we will plan on taking a second look in his bladder by cystoscopic examination but it is unlikely that we'll stop the bleeding from the prostate while he is still on Plavix -Continue finasteride and Flomax -See if Plavix can be changed to Coumadin to keep the patient at an INR so that prostatic bleeding doesn't continue VSTroy, I+O VS, Rorye, I+O Laboratory Tests 12/22/19 15:24 12/22/19 21:15 12/23/19 06:10 Vital Signs Date Time Temp Pulse Resp B/P (MAP) Pulse Ox O2 Delivery O2 Flow Rate FiO2 12/23/19 09:05 112/58 12/23/19 06:00 51 12/23/19 06:00 98.4 18 96 Room Air I&O- Last 24 Hours up to 6 AM 12/23/19 06:00 Intake Total 560 ml Output Total 3450 ml Balance -2890 ml CONCHIS QUINTANILLA MD Dec 23, 2019 14:44
--- NOTE | 2019-12-23 14:58 | IPNPDOC ---
Text Note Date of Service The patient was seen on 12/22/19. NOTE The patient was seen after Dr. Yu saw him in consultation for gross neal turia and clot retention. He was brought to the operating room where he was found to have large prostatic varicoses that were actively bleeding. These were fulgurated and he was sent home. With gross hematuria and clots again. A catheter was inserted and he was irrigated with 1700 mL of fluid until clear. He was admitted on clean intermittent catheterization. When seen now the urine was light pink and he hadn't had any further clots. On physical exam his abdomen was soft with some very mild tenderness. He has no flank tenderness. His vital signs were stable. Impression -Gross hematuria in a patient actively on aspirin and Plavix because of his history of PVD and the femoral graft failure and recent cardiac stent placement -Status post cystoscopy and clot irrigation by Dr. Yu on 12/18/19 and prostatic varicoses were seen and fulgurated -Asymptomatic anemia by H&H has been stable Plan: -Continue continuous bladder irrigation for now -Continue finasteride and Flomax -See if the Plavix could be changed with a heparin drip and then coumadinization since this may be able to help with the bleeding in the future VS,Troy, I+O VS, Troy, I+O Laboratory Tests 12/22/19 15:24 12/22/19 21:15 12/23/19 06:10 Vital Signs Date Time Temp Pulse Resp B/P (MAP) Pulse Ox O2 Delivery O2 Flow Rate FiO2 12/23/19 09:05 112/58 12/23/19 06:00 51 12/23/19 06:00 98.4 18 96 Room Air I&O- Last 24 Hours up to 6 AM 12/23/19 06:00 Intake Total 560 ml Output Total 3450 ml Balance -2890 ml CONCHIS QUINTANILLA MD Dec 23, 2019 14:58
[2019-12-23] MEDS: RAMELTEON 8 MG TAB (ROZEREM) PO SCH (21:00)
[2019-12-23] MEDS: TAMSULOSIN 0.4 MG CAP PO SCH (21:01)
[2019-12-23] MEDS: FINASTERIDE 5 MG TAB PO SCH (21:01)
[2019-12-23 22:00] VITALS: BP 180/80
[2019-12-23] MEDS: diphenhydrAMINE 25MG CAP PO PRN (22:00)
[2019-12-24 06:00] VITALS: BP 110/60
[2019-12-24 06:44] LABS: HEMATOCRIT 28.7 % (42.0-52.0); MEAN CORPUSCULAR HEMOGLOBIN 31.1 pg (27.0-33.0); MEAN CORPUSCULAR HGB CONC 31.4 g/dl (32.0-36.5); MEAN CORPUSCULAR VOLUME 99.3 fl (80.0-96.0); PLATELET COUNT, AUTOMATED 230 10^3/uL (150-450); RED BLOOD COUNT 2.89 10^6/uL (4.30-6.10); WHITE BLOOD COUNT 8.8 10^3/uL (4.0-10.0)
[2019-12-24 07:04] LABS: BLOOD UREA NITROGEN 13 MG/DL (7-18); CALCIUM LEVEL 8.4 MG/DL (8.8-10.2); CARBON DIOXIDE LEVEL 28 MEQ/L (21-32); CHLORIDE LEVEL 107 MEQ/L (98-107); CREATININE FOR GFR 0.79 MG/DL (0.70-1.30); GLOMERULAR FILTRATION RATE > 60.0 (>42); GLUCOSE, FASTING 92 MG/DL (70-100); SODIUM LEVEL 140 MEQ/L (136-145)
[2019-12-24] MEDS: lisinopriL 5 MG TAB PO SCH (08:23)
[2019-12-24] MEDS: CLOPIDOGREL 75 MG TAB PO SCH (08:25)
[2019-12-24] MEDS: BELLADONNA 16.2mg/OPIUM 60mg 1 EA SUPP PR PRN ×2 (08:25→21:18)
[2019-12-24] MEDS: ATORVASTATIN 20 MG TAB PO SCH (08:25)
[2019-12-24] MEDS: FOLIC ACID 1 MG TAB PO SCH (08:25)
[2019-12-24] MEDS: ASPIRIN 81 MG ENTERIC TAB PO SCH (08:25)
[2019-12-24] MEDS: THIAMINE 100 MG TAB PO SCH (08:25)
[2019-12-24] MEDS: FERROUS SULFATE 325MG TAB PO SCH ×2 (08:25→21:17)
[2019-12-24] MEDS: VITAMIN D 1,000 INTERNATIONAL UNITS TABLET PO SCH (08:25)
[2019-12-24] MEDS: MULTIVITAMINS/MINERALS THERAP 1 TAB PO SCH (08:25)
[2019-12-24] MEDS: amLODIPine 5 MG TAB PO SCH (08:28)
--- NOTE | 2019-12-24 09:38 | IPNPDOC ---
Text Note Date of Service The patient was seen on 12/24/19. NOTE Subjective: Patient is a 69-year-old male with a PMHx of CAD s/p stent x2, PAD (s/p femoral bypass), HTN, DLP, MALACHI, Hx of RLE DVT who presented to the hospital with blood in his urine and inability to urinate. Patient was recently evaluated by urology on a prior hospitalization and was found to have multiple varices of the prostate that were cauterized by Dr. Yu on 12/17. Patient was admitted to the hospital service with urology on consultation for hematuria. Zambrano catheter was placed on continuous bladder irrigation. Patient was seen and examined at the bedside. Currently patient continues to experience hematuria with red tinged urine output in his Zambrano bag. Patient denies any chest pain, shortness breath, palpitations, nausea, vomiting, abdominal pain or diarrhea. Objective: Vitals (See below) General: Lying in bed, no acute distress, comfortable, AAOx3 HEENT: NC, AT CVS: RRR, +S1S2 Lungs: Fair air entry b/l, -w/r/r Abdomen: Soft, ND, NT Extremities: - Edema, - Calf tenderness Assessment and plan: Gross hematuria 2/2 clots - Currently still experiences some hematuria - noted pink output in Zambrano bag - Hemodynamically stable - Hemoglobin stable, no transfusions required - c/w ASA / Plavix (re: must be continued for femoral bypass graft) - Urology on consultation; may require intervention today if bleeding persists Asymptomatic anemia 2/2 hematuria / Iron deficiency - Hg remains stable - No transfusions required - c/w Ferrous sulfate Peripheral vascular disease - Recent femoral graft with multiple graft failures; must remain on dual anti- platelet therapy - c/w ASA / Plavix / Atorvastatin CAD s/p stent - c/w ASA / Plavix / Atorvastatin BPH - c/w Finasteride and Tamsulosin Hypertension - c/w Lisinopril / Amlodipine with holding parameters DVT prophylaxis - c/w TEDs/Sequentials Disposition: - Awaiting clinical improvement Troy RAM, I+O VSTroy, I+O Laboratory Tests 12/24/19 05:43 Vital Signs Date Time Temp Pulse Resp B/P (MAP) Pulse Ox O2 Delivery O2 Flow Rate FiO2 12/24/19 08:28 42 12/24/19 08:23 133/61 12/24/19 06:00 98.6 18 97 Room Air I&O- Last 24 Hours up to 6 AM 12/24/19 06:00 Intake Total 900 ml Output Total 5675 ml Balance -4775 ml LUDY AMOR MD Dec 24, 2019 09:38
[2019-12-24] MEDS: NEOSPORIN TOP OINT 15GM TOP PRN (12:00)
[2019-12-24 14:00] VITALS: BP 146/68
--- NOTE | 2019-12-24 15:37 | ECGEPIP ---
[facility] Test Date: 2019-12-24 Pat Name: STEVEN RICHARDSON Department: Room: [place] [address] Gender: Male [employer] Inspector: JOSE MANUEL : [id number] Requested By: LUDY AMOR Order Number: [id number] Reading MD: Augusto Soliman Measurements Intervals Dillon Rate: 56 P: 39 AK: 282 QRS: -5 QRSD: 86 T: 52 QT: 408 QTc: 395 Interpretive Statements SINUS BRADYCARDIA WITH FIRST DEGREE AV BLOCK Electronically Signed on 12-24-2019 15:37:04 EDT by Augusto Soliman
--- NOTE | 2019-12-24 16:02 | IPNPDOC ---
Text Note Date of Service The patient was seen on 12/24/19. NOTE Darius was seen for continued gross hematuria and clot retention on continuous bladder irrigation. Overnight he did have some small clots but he did not require irrigation. I irrigated him at the bedside today and the urine was a very light pink and there was no residual clots found in the bladder. Physical exam: He is alert and oriented 3. His vital signs were stable. He had no flank tenderness and his abdomen was soft and nontender today. Impression: -Gross hematuria in a patient actively on aspirin and Plavix because of his history of PVD and the femoral graft failure and recent cardiac stent placement now on CBI and no need for irrigation overnight and on hand irrigation this morning the urine was quite clear so no operative management is recommended -Status post cystoscopy and clot irrigation by Dr. Yu on 12/18/19 and prostatic varicoses were seen and fulgurated -Asymptomatic anemia by H&H has been stable Plan: -Try to turn down CBI first thing in the morning and if the urine remains clear then we will try to discontinue this and see how he does -Still awaiting information with her Plavix can be changed to something that can be monitored and decreased when he has hematuria -Continue finasteride and Flomax VS,Fishbone, I+O VS, Fishbone, I+O Laboratory Tests 12/24/19 05:43 Vital Signs Date Time Temp Pulse Resp B/P (MAP) Pulse Ox O2 Delivery O2 Flow Rate FiO2 12/24/19 14:00 98.2 56 16 146/68 (94) 95 Room Air I&O- Last 24 Hours up to 6 AM 12/24/19 06:00 Intake Total 900 ml Output Total 5675 ml Balance -4775 ml CONCHIS QUINTANILLA MD Dec 24, 2019 16:02
[2019-12-24] MEDS: RAMELTEON 8 MG TAB (ROZEREM) PO SCH (21:00)
[2019-12-24] MEDS: FINASTERIDE 5 MG TAB PO SCH (21:17)
[2019-12-24] MEDS: TAMSULOSIN 0.4 MG CAP PO SCH (21:17)
[2019-12-24] MEDS: diphenhydrAMINE 25MG CAP PO PRN (21:18)
[2019-12-24 22:00] VITALS: BP 113/68
[2019-12-25] MEDS: BELLADONNA 16.2mg/OPIUM 60mg 1 EA SUPP PR PRN ×3 (05:16→21:00)
[2019-12-25] MEDS: ACETAMINOPHEN TAB 650MG DOSE (2X325MG) PO PRN ×3 (05:22→21:00)
[2019-12-25 06:00] VITALS: BP 121/68
[2019-12-25 07:39] LABS: HEMATOCRIT 30.6 % (42.0-52.0); HEMOGLOBIN 9.8 g/dl (13.5-17.5); MEAN CORPUSCULAR HEMOGLOBIN 31.5 pg (27.0-33.0); MEAN CORPUSCULAR VOLUME 98.4 fl (80.0-96.0); PLATELET COUNT, AUTOMATED 250 10^3/uL (150-450); RED BLOOD COUNT 3.11 10^6/uL (4.30-6.10); WHITE BLOOD COUNT 9.9 10^3/uL (4.0-10.0)
[2019-12-25 07:58] LABS: BLOOD UREA NITROGEN 17 MG/DL (7-18); CALCIUM LEVEL 8.4 MG/DL (8.8-10.2); CARBON DIOXIDE LEVEL 30 MEQ/L (21-32); CHLORIDE LEVEL 107 MEQ/L (98-107); CREATININE FOR GFR 0.98 MG/DL (0.70-1.30); GLOMERULAR FILTRATION RATE > 60.0 (>42); GLUCOSE, FASTING 98 MG/DL (70-100); POTASSIUM SERUM 4.3 MEQ/L (3.5-5.1); SODIUM LEVEL 141 MEQ/L (136-145)
[2019-12-25] MEDS: ATORVASTATIN 20 MG TAB PO SCH (09:24)
[2019-12-25] MEDS: lisinopriL 5 MG TAB PO SCH (09:24)
[2019-12-25] MEDS: FOLIC ACID 1 MG TAB PO SCH (09:24)
[2019-12-25] MEDS: ASPIRIN 81 MG ENTERIC TAB PO SCH (09:24)
[2019-12-25] MEDS: FERROUS SULFATE 325MG TAB PO SCH ×2 (09:24→21:00)
[2019-12-25] MEDS: CLOPIDOGREL 75 MG TAB PO SCH (09:25)
[2019-12-25] MEDS: MULTIVITAMINS/MINERALS THERAP 1 TAB PO SCH (09:25)
[2019-12-25] MEDS: VITAMIN D 1,000 INTERNATIONAL UNITS TABLET PO SCH (09:25)
[2019-12-25] MEDS: amLODIPine 5 MG TAB PO SCH (09:26)
--- NOTE | 2019-12-25 10:01 | IPNPDOC ---
Text Note Date of Service The patient was seen on 12/25/19. NOTE Subjective: Patient is a 69-year-old male with a PMHx of CAD s/p stent x2, PAD (s/p femoral bypass), HTN, DLP, MALACHI, Hx of RLE DVT who presented to the hospital with blood in his urine and inability to urinate. Patient was recently evaluated by urology on a prior hospitalization and was found to have multiple varices of the prostate that were cauterized by Dr. Yu on 12/17. Patient was admitted to the hospital service with urology on consultation for hematuria. Zambrano catheter was placed on continuous bladder irrigation. Patient was seen and examined at the bedside. Patient continues to experience some pink tinge to his urine output. Report some bladder spasms from the Zambrano catheter. Denies any nausea, vomiting, chest pain, shortness of breath, abdominal pain or diarrhea. Objective: Vitals (See below) General: Lying in bed,appears comfortable, AAOx3 HEENT: NC, AT CVS: RRR, +S1S2 Lungs: Fair air entry b/l, auscultation is without rhonchi, rales or wheezing Abdomen: Soft, nondistended and nontender Extremities: Lower extremities are without any edema, - Calf tenderness Assessment and plan: Gross hematuria 2/2 clots - likely 2/2 anti-platelet therapy (ASA and Plavix) and Prostate varices - Zambrano output continues to have a light pink tinge; no apparent clots noted - On 12/17, Dr. Yu had noted prostate varices - Hemodynamically stable - Hemoglobin stable, no transfusions required - c/w ASA / Plavix (re: must be continued for femoral bypass graft) - will discuss with vascular surgery - Urology on consultation; possible removal of continuous bladder irrigation if no additional clots are noted today Asymptomatic anemia 2/2 hematuria / Iron deficiency - Hg remains stable - No transfusions required - c/w Ferrous sulfate Peripheral vascular disease - Recent femoral graft with multiple graft failures; must remain on dual anti- platelet therapy - c/w ASA / Plavix / Atorvastatin CAD s/p stent - c/w ASA / Plavix / Atorvastatin BPH - c/w Finasteride and Tamsulosin Hypertension - c/w Lisinopril / Amlodipine with holding parameters DVT prophylaxis - c/w TEDs/Sequentials Disposition: - Awaiting clinical improvement - Anticipate discharge within the next 24 hours VS,Rorye, I+O VS, Ajitbone, I+O Laboratory Tests 12/25/19 07:22 Vital Signs Date Time Temp Pulse Resp B/P (MAP) Pulse Ox O2 Delivery O2 Flow Rate FiO2 12/25/19 06:00 97.8 50 18 121/68 (85) 95 Room Air I&O- Last 24 Hours up to 6 AM 12/25/19 06:00 Intake Total 860 ml Output Total 3200 ml Balance -2340 ml LUDY AMOR MD Dec 25, 2019 10:01
[2019-12-25 14:00] VITALS: BP 92/56
[2019-12-25 14:46] VITALS: BP 107/56
--- NOTE | 2019-12-25 15:59 | IPNPDOC ---
Text Note Date of Service The patient was seen on 12/25/19. NOTE Patient was seen and examined at bedside today. They tried to turn off the CBI since he had had no blood clots but this turned fairly dark daniels. We will restart CBI began. Physical exam: Vital signs are stable. He is alert and oriented 3. His no CVA tenderness. His abdomen is soft and nontender. His extremities show no cyanosis clubbing or edema. Impression: -Gross hematuria in a patient actively on aspirin and Plavix because of his history of PVD and the femoral graft failure and recent cardiac stent placement now on CBI and no need for irrigation overnight and on hand irrigation this morning the urine was quite clear so no operative management is recommended -Status post cystoscopy and clot irrigation by Dr. Yu on 12/18/19 and prostatic varicoses were seen and fulgurated -Asymptomatic anemia by H&H has been stable Plan: -Titrate CBI depending on what the urine looks like -Still awaiting information to see if his Plavix can be changed to something leandro t can be decreased depending on the prostatic bleeding -Continue finasteride and Flomax VS,Fishbone, I+O VS, Fishbone, I+O Laboratory Tests 12/25/19 07:22 Vital Signs Date Time Temp Pulse Resp B/P (MAP) Pulse Ox O2 Delivery O2 Flow Rate FiO2 12/25/19 14:46 107/56 (73) 12/25/19 14:00 97.7 87 20 94 Room Air I&O- Last 24 Hours up to 6 AM 12/25/19 05:59 Intake Total 860 ml Output Total 3200 ml Balance -2340 ml CONCHIS QUINTANILLA MD Dec 25, 2019 15:59
[2019-12-25 17:49] LABS: BASO % 0.4 % (0.0-1.0); EOS # 0.4 10^3/uL (0.0-0.5); EOS % 4.5 % (0.0-3.0); HEMATOCRIT 29.9 % (42.0-52.0); HEMOGLOBIN 9.7 g/dl (13.5-17.5); LYMPH # 2.4 10^3/uL (1.5-5.0); LYMPH % 26.8 % (24.0-44.0); MEAN CORPUSCULAR HEMOGLOBIN 31.8 pg (27.0-33.0); MEAN CORPUSCULAR HGB CONC 32.4 g/dl (32.0-36.5); MONO # 1.1 10^3/uL (0.0-0.8); MONO % 11.7 % (0.0-5.0); NEUTROPHILS # 5.1 10^3/uL (1.5-8.5); NEUTROPHILS % 56.2 % (36.0-66.0); PLATELET COUNT, AUTOMATED 259 10^3/uL (150-450); RED BLOOD COUNT 3.05 10^6/uL (4.30-6.10); WHITE BLOOD COUNT 9.1 10^3/uL (4.0-10.0)
[2019-12-25] MEDS: TAMSULOSIN 0.4 MG CAP PO SCH (20:59)
[2019-12-25] MEDS: FINASTERIDE 5 MG TAB PO SCH (20:59)
[2019-12-25] MEDS: RAMELTEON 8 MG TAB (ROZEREM) PO SCH (21:00)
[2019-12-25] MEDS: diphenhydrAMINE 25MG CAP PO PRN (21:00)
[2019-12-25 22:00] VITALS: BP 109/65
[2019-12-26 06:00] VITALS: BP 110/64
[2019-12-26 06:21] LABS: HEMATOCRIT 29.9 % (42.0-52.0); HEMOGLOBIN 9.4 g/dl (13.5-17.5); MEAN CORPUSCULAR HGB CONC 31.4 g/dl (32.0-36.5); MEAN CORPUSCULAR VOLUME 98.7 fl (80.0-96.0); PLATELET COUNT, AUTOMATED 261 10^3/uL (150-450); RED BLOOD COUNT 3.03 10^6/uL (4.30-6.10); WHITE BLOOD COUNT 9.4 10^3/uL (4.0-10.0)
[2019-12-26 06:41] LABS: BLOOD UREA NITROGEN 18 MG/DL (7-18); CALCIUM LEVEL 8.6 MG/DL (8.8-10.2); CARBON DIOXIDE LEVEL 29 MEQ/L (21-32); CHLORIDE LEVEL 106 MEQ/L (98-107); CREATININE FOR GFR 0.95 MG/DL (0.70-1.30); GLOMERULAR FILTRATION RATE > 60.0 (>42); GLUCOSE, FASTING 102 MG/DL (70-100); MAGNESIUM LEVEL 2.1 MG/DL (1.8-2.4); POTASSIUM SERUM 4.1 MEQ/L (3.5-5.1); SODIUM LEVEL 140 MEQ/L (136-145)
[2019-12-26] MEDS: ASPIRIN 81 MG ENTERIC TAB PO SCH (08:07)
[2019-12-26] MEDS: FOLIC ACID 1 MG TAB PO SCH (08:07)
[2019-12-26] MEDS: ATORVASTATIN 20 MG TAB PO SCH (08:07)
[2019-12-26] MEDS: VITAMIN D 1,000 INTERNATIONAL UNITS TABLET PO SCH (08:07)
[2019-12-26] MEDS: FERROUS SULFATE 325MG TAB PO SCH ×2 (08:08→20:13)
[2019-12-26] MEDS: CLOPIDOGREL 75 MG TAB PO SCH (08:08)
[2019-12-26] MEDS: amLODIPine 5 MG TAB PO SCH (08:10)
[2019-12-26] MEDS: lisinopriL 5 MG TAB PO SCH (08:10)
[2019-12-26] MEDS: MULTIVITAMINS/MINERALS THERAP 1 TAB PO SCH (08:12)
--- NOTE | 2019-12-26 09:53 | IPNPDOC ---
Text Note Date of Service The patient was seen on 12/26/19. NOTE Patient was in the bathroom when seen today so he returned the CBI because he was up and moving. Reportedly overnight he had no clots. The urine was now light pink. He is still very frustrated because she is afraid to go home and come back with gross hematuria. We discussed that we can send him home with the Zambrano catheter in place and he can learn how to self irrigate if he gets a clot. At this point though his preference is to remove the catheter before going home but he understands that there is no guarantees that he will come back in clot retention. Physical exam: Vital signs are stable. He is alert and oriented 3. His no CVA tenderness. His abdomen is soft and nontender. His extremities show no cyanosis clubbing or edema. Impression: -Gross hematuria in a patient actively on aspirin and Plavix because of his history of PVD and the femoral graft failure and recent cardiac stent placement now on CBI and no need for irrigation overnight and on hand irrigation this morning the urine was quite clear so no operative management is recommended -Status post cystoscopy and clot irrigation by Dr. Yu on 12/18/19 and prostatic varicoses were seen and fulgurated -Asymptomatic anemia by H&H has been stable Plan: -Titrate CBI and hopefully we can turn it off for light pink urine. If the urine stays light pink while ambulating and office CBI then tomorrow morning we will plan on removing the Zambrano catheter and hopefully being able to send him home. -Still awaiting information to see if his Plavix can be changed to something that can be decreased depending on the prostatic bleeding -Continue finasteride and Flomax VS,Fishbone, I+O VS, Fishbone, I+O Laboratory Tests 12/25/19 17:26 12/26/19 05:47 Vital Signs Date Time Temp Pulse Resp B/P (MAP) Pulse Ox O2 Delivery O2 Flow Rate FiO2 12/26/19 08:10 61 110/64 12/26/19 06:00 98.4 18 93 Room Air I&O- Last 24 Hours up to 6 AM 12/26/19 06:00 Intake Total 1255 ml Output Total 1900 ml Balance -645 ml CONCHIS QUINTANILLA MD Dec 26, 2019 09:52
--- NOTE | 2019-12-26 10:43 | IPNPDOC ---
Text Note Date of Service The patient was seen on 12/26/19. NOTE Subjective: Patient is a 69-year-old male with a PMHx of CAD s/p stent x2, PAD (s/p femoral bypass), HTN, DLP, MALACHI, Hx of RLE DVT who presented to the hospital with blood in his urine and inability to urinate. Patient was recently evaluated by urology on a prior hospitalization and was found to have multiple varices of the prostate that were cauterized by Dr. Yu on 12/17. Patient was admitted to the hospital service with urology on consultation for hematuria. Zambrano catheter was placed on continuous bladder irrigation. Patient was seen and examined at the bedside. Patient has no new complaints this morning. Denies any chest pain, shortness breath, palpitations, nausea, vomiting, abdominal pain or diarrhea. Patient a trial of clamping his Zambrano catheter, however, continued to experience some red tinged urine and continuous bladder irrigation was resumed. Patient will again have a trial today. Objective: Vitals (See below) General: Lying in bed,appears comfortable, AAOx3 HEENT: NC, AT CVS: RRR, +S1S2 Lungs: Air entry is fair bilaterally without evidence of rhonchi, crackles or wheezing Abdomen: Abdomen remains soft without any distention or tenderness Extremities: No edema is appreciated at bilateral lower extremities, - Calf tenderness Assessment and plan: Gross hematuria 2/2 clots - likely 2/2 anti-platelet therapy (ASA and Plavix) and Prostate varices - Zambrano output continues to have a light pink tinge; no apparent clots noted - On 12/17, Dr. Yu had noted prostate varices - Hemodynamically stable - Hemoglobin stable, no transfusions required - MUST CONTINUE ASA / Plavix (re: must be continued for femoral bypass graft repair on 11/[address] Livingston) - Urology on consultation; will have re-evaluation of clamped Zambrano today by Urology Asymptomatic anemia 2/2 hematuria / Iron deficiency - Hg remains stable - No transfusions required - c/w Ferrous sulfate Peripheral vascular disease - Recent femoral graft with multiple graft failures; must remain on dual anti- platelet therapy - c/w ASA / Plavix / Atorvastatin CAD s/p stent - c/w ASA / Plavix / Atorvastatin BPH - c/w Finasteride and Tamsulosin Hypertension - c/w Lisinopril / Amlodipine with holding parameters DVT prophylaxis - c/w TEDs/Sequentials Disposition: - Awaiting clinical improvement - Anticipate discharge within the next 24 hours VSTroy, I+O VSTroy I+O Laboratory Tests 12/25/19 17:26 12/26/19 05:47 Vital Signs Date Time Temp Pulse Resp B/P (MAP) Pulse Ox O2 Delivery O2 Flow Rate FiO2 12/26/19 08:10 61 110/64 12/26/19 06:00 98.4 18 93 Room Air I&O- Last 24 Hours up to 6 AM 12/26/19 06:00 Intake Total 1255 ml Output Total 1900 ml Balance -645 ml LUDY AMOR MD Dec 26, 2019 10:43
[2019-12-26 14:00] VITALS: BP 107/65
[2019-12-26] MEDS: BELLADONNA 16.2mg/OPIUM 60mg 1 EA SUPP PR PRN (17:25)
[2019-12-26] MEDS: TAMSULOSIN 0.4 MG CAP PO SCH (20:13)
[2019-12-26] MEDS: FINASTERIDE 5 MG TAB PO SCH (20:13)
[2019-12-26] MEDS: diphenhydrAMINE 25MG CAP PO PRN (20:13)
[2019-12-26] MEDS: RAMELTEON 8 MG TAB (ROZEREM) PO SCH (20:14)
[2019-12-26 22:00] VITALS: BP 114/62
[2019-12-27] MEDS: BELLADONNA 16.2mg/OPIUM 60mg 1 EA SUPP PR PRN (05:28)
[2019-12-27 06:00] VITALS: BP 118/76
[2019-12-27] MEDS: ACETAMINOPHEN TAB 650MG DOSE (2X325MG) PO PRN ×2 (06:11→20:22)
[2019-12-27 06:23] LABS: HEMATOCRIT 29.9 % (42.0-52.0); HEMOGLOBIN 9.6 g/dl (13.5-17.5); MEAN CORPUSCULAR HEMOGLOBIN 31.6 pg (27.0-33.0); MEAN CORPUSCULAR HGB CONC 32.1 g/dl (32.0-36.5); MEAN CORPUSCULAR VOLUME 98.4 fl (80.0-96.0); PLATELET COUNT, AUTOMATED 265 10^3/uL (150-450); RED BLOOD COUNT 3.04 10^6/uL (4.30-6.10); WHITE BLOOD COUNT 9.5 10^3/uL (4.0-10.0)
[2019-12-27 06:45] LABS: BLOOD UREA NITROGEN 19 MG/DL (7-18); CALCIUM LEVEL 8.9 MG/DL (8.8-10.2); CARBON DIOXIDE LEVEL 25 MEQ/L (21-32); CHLORIDE LEVEL 106 MEQ/L (98-107); CREATININE FOR GFR 0.96 MG/DL (0.70-1.30); GLOMERULAR FILTRATION RATE > 60.0 (>42); GLUCOSE, FASTING 108 MG/DL (70-100); SODIUM LEVEL 138 MEQ/L (136-145)
[2019-12-27] MEDS ORDERED: HEPARIN SOD (PORCINE) 5000UNITS/ML 1ML VIAL/SYRINGE IV PRN (08:15)
--- NOTE | 2019-12-27 09:27 | IPNPDOC ---
Text Note Date of Service The patient was seen on 12/27/19. NOTE Subjective: Patient is a 69-year-old male with a PMHx of CAD s/p stent x2, PAD (s/p femoral bypass), HTN, DLP, MALACHI, Hx of RLE DVT who presented to the hospital with blood in his urine and inability to urinate. Patient was recently evaluated by urology on a prior hospitalization and was found to have multiple varices of the prostate that were cauterized by Dr. Yu on 12/17. Patient was admitted to the hospital service with urology on consultation for hematuria. Zambrano catheter was placed on continuous bladder irrigation. Patient was seen and examined at the bedside. Patient continues to experience red tinged urine output in his Zambrano catheter has been expressing bladder spasms and has difficulty sleeping overnight. Denies any chest pain, shortness breath, palpitations. Denies any nausea, vomiting, abdominal pain or diarrhea. Objective: Vitals (See below) General: Lying in bed, does appear to be comfortable, AAOx3 HEENT: NC, AT CVS: +S1S2 Lungs: Again, air entry is fair bilaterally without any auscultated rhonchi, wheezing or crackles Abdomen: Remains soft without distention. There is mild suprapubic tenderness Extremities: No tremors are without any edema, pallor he refill noted bilaterally, - Calf tenderness Assessment and plan: Hematuria with clots - likely 2/2 anti-platelet therapy (ASA and Plavix) and Prostate varices - Zambrano output continues to have urine output that is pink tinged - On 12/17, Dr. Yu had noted prostate varices - Hemodynamically stable - Hemoglobin stable, no transfusions required - Has had recent femoral bypass graft repair on 11/19/[address] Livingston - Must continue anti-platelet therapy - unless bleeding becomes hemodynamically significant and/or patient requires multiple blood transfusions - ASA will be continued - Discussed with Urology; will DC Plavix; plan to heparinize at this time and eventually transition to Coumadin - Urology on consultation; Zambrano will remain in place - no plans for intervention at this time; possible TURP, however will likely be considered after bleeding resolves Asymptomatic anemia 2/2 hematuria / Iron deficiency - Hg remains stable and patient has not required transfusions - c/w Ferrous sulfate - Will continue to follow H&H closely over the next 48 hours (re: Heparin drip started) Peripheral vascular disease - Recent femoral graft with multiple graft failures; must remain on dual anti- platelet therapy - c/w ASA / Atorvastatin - Discussed with Urology and Vascular surgery - Will start Heparin drip today - Discussed risks / benefits with patient - patient has verbalized understanding CAD s/p stent - c/w ASA / Atorvastatin BPH - c/w Finasteride and Tamsulosin Hypertension - c/w Lisinopril / Amlodipine with holding parameters DVT prophylaxis - c/w TEDs/Sequentials - Will be started on Heparin drip Disposition: - Awaiting resolution of Hematuria VS,Fishbone, I+O VS, Fishbone, I+O Laboratory Tests 12/27/19 06:04 Vital Signs Date Time Temp Pulse Resp B/P (MAP) Pulse Ox O2 Delivery O2 Flow Rate FiO2 12/27/19 06:00 97.4 54 18 118/76 (90) 94 Room Air I&O- Last 24 Hours up to 6 AM 12/27/19 06:00 Intake Total 900 ml Output Total 1550 ml Balance -650 ml LUDY AMOR MD Dec 27, 2019 09:27
[2019-12-27 09:59] VITALS: BP 116/75
[2019-12-27] MEDS: ATORVASTATIN 20 MG TAB PO SCH (10:00)
--- NOTE | 2019-12-27 10:00 | REP ---
INDICATION: prostatic volume. COMPARISON: CT 12/15/2019. TECHNIQUE: Real-time sonographic evaluation of urinary bladder performed. FINDINGS: Bladder measures 8.2 x 8.5 x 6.3 cm for total volume of 287 cc. Zambrano catheter is seen in the urinary bladder. There is circumferential soft tissue around the Zambrano catheter which may represent confluent debris or clot. There are bladder is otherwise grossly unremarkable. Prostate is enlarged, measuring 7.0 x 5.7 x 6.0 cm. IMPRESSION: Prostate is enlarged, measuring 7.0 x 5.7 x 6.0 cm. <Electronically signed by Jose Ardon > 12/27/19 0956
[2019-12-27] MEDS: ASPIRIN 81 MG ENTERIC TAB PO SCH (10:01)
[2019-12-27] MEDS: FOLIC ACID 1 MG TAB PO SCH (10:01)
[2019-12-27] MEDS: VITAMIN D 1,000 INTERNATIONAL UNITS TABLET PO SCH (10:01)
[2019-12-27] MEDS: MULTIVITAMINS/MINERALS THERAP 1 TAB PO SCH (10:02)
[2019-12-27] MEDS: FERROUS SULFATE 325MG TAB PO SCH ×2 (10:02→20:21)
[2019-12-27] MEDS: lisinopriL 5 MG TAB PO SCH (10:02)
[2019-12-27] MEDS: amLODIPine 5 MG TAB PO SCH (10:03)
[2019-12-27] MEDS: HEPARIN DRIP 25,000 UNITS in IV 1 EA IV SCH (11:06)
--- NOTE | 2019-12-27 12:13 | IPNPDOC ---
Text Note Date of Service The patient was seen on 12/27/19. NOTE Darius is on very low CBI this morning and his urine is completely clear. I hand irrigated and there was no clots. He was having severe bladder spasms last night with some clots with the spasming. At this point we'll try to remove the catheter. Physical exam: Vital signs are stable. He is alert and oriented 3. His no CVA tenderness. His abdomen is soft and nontender. His extremities show no cyanosis clubbing or edema. Impression: -Gross hematuria in a patient actively on aspirin and Plavix because of his history of PVD and the femoral graft failure and cardiac stent placement now on CBI and no need for irrigation overnight but with significant bladder spasms despite BNO suppositories and clots overnight. Hand irrigation today shows urine to be clear without clots. 30 mL was removed from the Zambrano balloon at least 2-3 days ago -Status post cystoscopy and clot irrigation by Dr. Yu on 12/18/19 and prostatic varicoses were seen and fulgurated -Asymptomatic anemia by H&H has been stable -Abdominal ultrasound was done and this showed the prostate to be at least 263 g Plan: -Titrate CBI and hopefully we can turn it off for light pink urine. If the urine stays light pink while ambulating and office CBI then tomorrow morning we will plan on removing the Zambrano catheter and hopefully being able to send him home. -Stop Plavix and start heparinization and Coumadin as per Dr. Lepe -Continue finasteride and Flomax I spent at least 45 minutes today with greater than 50% of this in [id number] consultation with both the patient and Dr. Lepe. With such a large prostate I do not believe that a TURP or laser would help with the bleeding. He would best be served if the bleeding continues with having a HoLep procedure which would need to be done in [facility], or [place]. At this point though his bladder spasms could be causing the clots and also from irritation from Zambrano catheter. We will try to remove the Zambrano catheter today since he urine is quite clear this morning how he does. We discussed that finasteride may be helpful but it does take up to 3 months to work. Also for get him on Coumadin is possible that he doesn't have further prostatic bleeding. If he does have further prostatic bleeding and irritative and obstructive voiding symptoms then referral to a tertiary care center should be considered for surgical management. This was discussed with Dr. Shaw [place] who is in agreement. VS,Fishbone, I+O VS, Fishbone, I+O Laboratory Tests 12/27/19 06:04 Vital Signs Date Time Temp Pulse Resp B/P (MAP) Pulse Ox O2 Delivery O2 Flow Rate FiO2 12/27/19 10:03 84 116/75 12/27/19 06:00 97.4 18 94 Room Air I&O- Last 24 Hours up to 6 AM 12/27/19 05:59 Intake Total 900 ml Output Total 2000 ml Balance -1100 ml CONCHIS QUINTANILLA MD Dec 27, 2019 12:13
[2019-12-27] MEDS: BELLADONNA 16.2mg/OPIUM 60mg 1 EA SUPP PR SCH ×2 (12:15→17:36)
[2019-12-27 12:24] LABS: HEMATOCRIT 28.9 % (42.0-52.0); HEMOGLOBIN 9.2 g/dl (13.5-17.5)
[2019-12-27 14:00] VITALS: BP 132/73
[2019-12-27] MEDS: BACTRIM 160MG/800MG DS TAB PO SCH ×2 (14:44→20:22)
[2019-12-27] MEDS: PHENAZOPYRIDINE 100 MG TAB PO PRN ×2 (14:44→23:45)
[2019-12-27 17:16] LABS: HEMATOCRIT 31.3 % (42.0-52.0)
[2019-12-27] MEDS: TAMSULOSIN 0.4 MG CAP PO SCH (20:22)
[2019-12-27] MEDS: RAMELTEON 8 MG TAB (ROZEREM) PO SCH (20:22)
[2019-12-27] MEDS: FINASTERIDE 5 MG TAB PO SCH (20:22)
[2019-12-27 22:00] VITALS: BP 110/65
[2019-12-27 23:13] LABS: HEMATOCRIT 27.3 % (42.0-52.0); HEMOGLOBIN 8.7 g/dl (13.5-17.5)
[2019-12-27] MEDS: diphenhydrAMINE 25MG CAP PO PRN (23:45)
[2019-12-28] VITALS (12 sets, daily range): BP systolic 98–130; BP diastolic 49–76
[2019-12-28] MEDS: HEPARIN DRIP 25,000 UNITS in IV 1 EA IV SCH (05:46)
[2019-12-28] MEDS: BELLADONNA 16.2mg/OPIUM 60mg 1 EA SUPP PR SCH ×4 (05:48→17:09)
[2019-12-28] MEDS: ACETAMINOPHEN TAB 650MG DOSE (2X325MG) PO PRN (05:48)
[2019-12-28] MEDS ORDERED: NS 500 ML IV ONE (06:45)
[2019-12-28 07:27] LABS: HEMATOCRIT 27.1 % (42.0-52.0); HEMOGLOBIN 8.8 g/dl (13.5-17.5); MEAN CORPUSCULAR HEMOGLOBIN 31.8 pg (27.0-33.0); MEAN CORPUSCULAR HGB CONC 32.5 g/dl (32.0-36.5); MEAN CORPUSCULAR VOLUME 97.8 fl (80.0-96.0); PLATELET COUNT, AUTOMATED 257 10^3/uL (150-450); RED BLOOD COUNT 2.77 10^6/uL (4.30-6.10)
[2019-12-28 08:16] LABS: CALCIUM LEVEL 8.4 MG/DL (8.8-10.2); CREATININE FOR GFR 1.29 MG/DL (0.70-1.30); GLOMERULAR FILTRATION RATE 58.5 (>42); POTASSIUM SERUM 4.1 MEQ/L (3.5-5.1)
[2019-12-28] MEDS ORDERED: NS 500 ML IV SCH (08:30)
[2019-12-28] MEDS: lisinopriL 5 MG TAB PO SCH (09:00)
[2019-12-28] MEDS: amLODIPine 5 MG TAB PO SCH (09:00)
--- NOTE | 2019-12-28 09:03 | IPNPDOC ---
Text Note Date of Service The patient was seen on 12/28/19. NOTE Subjective: Patient is a 69-year-old male with a PMHx of CAD s/p stent x2, PAD (s/p femoral bypass), HTN, DLP, MALACHI, Hx of RLE DVT who presented to the hospital with blood in his urine and inability to urinate. Patient was recently evaluated by urology on a prior hospitalization and was found to have multiple varices of the prostate that were cauterized by Dr. Yu on 12/17. Patient was admitted to the hospital service with urology on consultation for hematuria. Zambrano catheter was placed on continuous bladder irrigation. Patient was seen and examined at the bedside. Yesterday evening, patient had hematuria. Denies any nausea, vomiting, chest pain, short of breath, palpitations. Denies any lightheadedness or dizziness. Reports that his lower abdominal discomfort has resolved. Zambrano is in place and is draining mostly orange colored urine. Objective: Vitals (See below) General: Lying in bed, again appears comfortable and is in no acute distress, AAOx3 HEENT: NC, AT CVS: +S1S2 Lungs: There is fair air entry bilaterally without evidence of rhonchi, crackles or wheezing Abdomen: Still remains soft without distention or tenderness appreciated in any 4 quadrants Extremities: LE are without edema, - Calf tenderness Assessment and plan: Hematuria with clots - likely 2/2 anti-platelet therapy (ASA and Plavix) and Prostate varices - Zambrano bag contains mostly orange urine - On 12/17, Dr. Yu had noted prostate varices on cystoscopy with fulguration - Hemodynamically stable - Hemoglobin has had slight drop; will provide single unit of PRBC transfusion - Has had recent femoral bypass graft repair on 11/19/[address] Livingston - Must continue anti-platelet therapy - unless bleeding becomes hemodynamically significant and/or patient requires multiple blood transfusions - ASA will be continued - After discussion with Urology and Vascular surgery; Plavix will be held - Urology on consultation; Zambrano will remain in place - no plans for intervention at this time; possible TURP, however will likely be considered after bleeding resolves - May require transition to tertiary level of care if there continues to be hematuria and additional intervention is required Asymptomatic anemia 2/2 hematuria / Iron deficiency - Hg remains stable and patient has not required transfusions - c/w Ferrous sulfate - Will continue to follow H&H closely over the next 48 hours (re: Heparin drip started) Peripheral vascular disease - Recent femoral graft with multiple graft failures; - c/w ASA / Atorvastatin - Discussed with Urology and Vascular surgery - Will resume heparin drip; transition to Coumadin; likely this afternoon after repeat lab work available - Discussed risks / benefits with patient - advised that he is at high risk of blood supply of leg to become compromised while off anticoagulation; patient has verbalized understanding CAD s/p stent - c/w ASA / Atorvastatin BPH - c/w Finasteride and Tamsulosin Hypertension - c/w Lisinopril / Amlodipine with holding parameters DVT prophylaxis - c/w TEDs/Sequentials - Will resume Heparin drip within 12 hours Disposition: - Awaiting resolution of Hematuria VS,Tory, I+O VS, Rorye, I+O Laboratory Tests 12/27/19 12:14 12/27/19 16:59 12/27/19 22:59 12/28/19 07:11 Vital Signs Date Time Temp Pulse Resp B/P (MAP) Pulse Ox O2 Delivery O2 Flow Rate FiO2 12/28/19 06:00 98.3 79 20 98/56 (70) 91 Room Air I&O- Last 24 Hours up to 6 AM 12/28/19 06:00 Intake Total 1456 ml Output Total 2150 ml Balance -694 ml LUDY AMOR MD Dec 28, 2019 09:03
[2019-12-28] MEDS: FOLIC ACID 1 MG TAB PO SCH (09:13)
[2019-12-28] MEDS: VITAMIN D 1,000 INTERNATIONAL UNITS TABLET PO SCH (09:13)
[2019-12-28] MEDS: BACTRIM 160MG/800MG DS TAB PO SCH ×2 (09:13→20:20)
[2019-12-28] MEDS: ATORVASTATIN 20 MG TAB PO SCH (09:13)
[2019-12-28] MEDS: ASPIRIN 81 MG ENTERIC TAB PO SCH (09:13)
[2019-12-28] MEDS: MULTIVITAMINS/MINERALS THERAP 1 TAB PO SCH (09:14)
[2019-12-28] MEDS: FERROUS SULFATE 325MG TAB PO SCH ×2 (09:14→20:20)
--- NOTE | 2019-12-28 14:00 | IPNPDOC ---
Text Note Date of Service The patient was seen on 12/28/19. NOTE We attempted a voiding trial yesterday but he failed. Urine was completely clear again this morning though so we are trying again and he was able to void 175 mL with a postvoid residual of only 41 mL. The urine is still slightly bloody with occasional clots but this doesn't seem very significant. Bladder spasms are better since the catheter is out. He is now being heparinized and the Plavix was stopped yesterday so we will wait and see how the hematuria does. Physical exam: Vital signs are stable. He is alert and oriented 3. His no CVA tenderness. His abdomen is soft and nontender. His extremities show no cyanosis clubbing or edema. Impression: -Gross hematuria in a patient who is Plavix was stopped yesterday but he is on aspirin and heparinized for history of a femoral grafting cardiac stents now voiding 175 mL with a PVR of 41 mL after the Zambrano catheter was removed still with some gross hematuria but he had been completely clear on CBI and off CBI for the last several days but still had severe bladder spasms -Status post cystoscopy and clot irrigation by Dr. Yu on 12/18/19 and prostatic varicoses were seen and fulgurated -Asymptomatic anemia by H&H has been stable -Abdominal ultrasound was done and this showed the prostate to be at least 263 g Plan: -Continue the voiding trial as long as there is not clots or difficulty urinating -Continue finasteride and Flomax -If patient does need intervention because of the size of his prostate he would benefit from a laser enucleation of the prostate and now would need to be done at a tertiary care center VSTroy, I+O VSTroy, I+O Laboratory Tests 12/27/19 16:59 12/27/19 22:59 12/28/19 07:11 Vital Signs Date Time Temp Pulse Resp B/P (MAP) Pulse Ox O2 Delivery O2 Flow Rate FiO2 12/28/19 12:42 97.3 60 18 130/76 95 Room Air I&O- Last 24 Hours up to 6 AM 12/28/19 06:00 Intake Total 1456 ml Output Total 2150 ml Balance -694 ml CONCHIS QUINTANILLA MD Dec 28, 2019 14:00
[2019-12-28 14:30] LABS: HEMATOCRIT 27.7 % (42.0-52.0); HEMOGLOBIN 8.9 g/dl (13.5-17.5); MEAN CORPUSCULAR HGB CONC 32.1 g/dl (32.0-36.5); MEAN CORPUSCULAR VOLUME 96.5 fl (80.0-96.0); PLATELET COUNT, AUTOMATED 240 10^3/uL (150-450); RED BLOOD COUNT 2.87 10^6/uL (4.30-6.10); WHITE BLOOD COUNT 8.1 10^3/uL (4.0-10.0)
[2019-12-28 14:51] LABS: BLOOD UREA NITROGEN 18 MG/DL (7-18); CALCIUM LEVEL 8.7 MG/DL (8.8-10.2); CARBON DIOXIDE LEVEL 23 MEQ/L (21-32); CHLORIDE LEVEL 103 MEQ/L (98-107); GLOMERULAR FILTRATION RATE > 60.0 (>42); GLUCOSE, FASTING 165 MG/DL (70-100); POTASSIUM SERUM 3.9 MEQ/L (3.5-5.1); SODIUM LEVEL 135 MEQ/L (136-145)
[2019-12-28] MEDS ORDERED: NS 1,000 ML IV SCH (15:30)
[2019-12-28] MEDS: PHENAZOPYRIDINE 100 MG TAB PO PRN (18:23)
[2019-12-28] MEDS: RAMELTEON 8 MG TAB (ROZEREM) PO SCH (20:19)
[2019-12-28] MEDS: FINASTERIDE 5 MG TAB PO SCH (20:20)
[2019-12-28] MEDS: TAMSULOSIN 0.4 MG CAP PO SCH (20:20)
[2019-12-29] MEDS: BELLADONNA 16.2mg/OPIUM 60mg 1 EA SUPP PR SCH ×4 (00:22→18:52)
[2019-12-29 00:42] LABS: HEMATOCRIT 30.3 % (42.0-52.0); HEMOGLOBIN 9.9 g/dl (13.5-17.5)
[2019-12-29 06:00] VITALS: BP 100/68
[2019-12-29 07:00] LABS: HEMATOCRIT 29.9 % (42.0-52.0); HEMOGLOBIN 9.7 g/dl (13.5-17.5); MEAN CORPUSCULAR HGB CONC 32.4 g/dl (32.0-36.5); MEAN CORPUSCULAR VOLUME 95.5 fl (80.0-96.0); PLATELET COUNT, AUTOMATED 248 10^3/uL (150-450); RED BLOOD COUNT 3.13 10^6/uL (4.30-6.10); WHITE BLOOD COUNT 7.1 10^3/uL (4.0-10.0)
[2019-12-29 07:12] LABS: BLOOD UREA NITROGEN 14 MG/DL (7-18); CALCIUM LEVEL 8.2 MG/DL (8.8-10.2); CARBON DIOXIDE LEVEL 23 MEQ/L (21-32); CHLORIDE LEVEL 108 MEQ/L (98-107); CREATININE FOR GFR 1.16 MG/DL (0.70-1.30); GLOMERULAR FILTRATION RATE > 60.0 (>42); GLUCOSE, FASTING 115 MG/DL (70-100); MAGNESIUM LEVEL 1.8 MG/DL (1.8-2.4); POTASSIUM SERUM 4.3 MEQ/L (3.5-5.1); SODIUM LEVEL 139 MEQ/L (136-145)
[2019-12-29] MEDS: lisinopriL 5 MG TAB PO SCH (09:00)
[2019-12-29] MEDS: amLODIPine 5 MG TAB PO SCH (09:00)
[2019-12-29] MEDS: FOLIC ACID 1 MG TAB PO SCH (09:02)
[2019-12-29] MEDS: PHENAZOPYRIDINE 100 MG TAB PO PRN (09:02)
[2019-12-29] MEDS: ASPIRIN 81 MG ENTERIC TAB PO SCH (09:02)
[2019-12-29] MEDS: FERROUS SULFATE 325MG TAB PO SCH ×2 (09:03→21:39)
[2019-12-29] MEDS: BACTRIM 160MG/800MG DS TAB PO SCH ×2 (09:03→21:39)
[2019-12-29] MEDS: MULTIVITAMINS/MINERALS THERAP 1 TAB PO SCH (09:03)
[2019-12-29] MEDS: VITAMIN D 1,000 INTERNATIONAL UNITS TABLET PO SCH (09:03)
[2019-12-29] MEDS: ATORVASTATIN 20 MG TAB PO SCH (09:03)
[2019-12-29] MEDS: ACETAMINOPHEN TAB 650MG DOSE (2X325MG) PO PRN (09:03)
--- NOTE | 2019-12-29 13:30 | IPNPDOC ---
Text Note Date of Service The patient was seen on 12/29/19. NOTE Subjective: Patient seen and examined at bedside. No acute overnight events reported. This morning he notes continued clots during micturition. He denies any other medical complaints. Objective: Vitals (See below) General: Lying in bed, again appears comfortable and is in no acute distress, AAOx3 HEENT: NC, AT CVS: +S1S2 Lungs: There is fair air entry bilaterally without evidence of rhonchi, crackles or wheezing Abdomen: Still remains soft without distention or tenderness appreciated in any 4 quadrants Extremities: LE are without edema, - Calf tenderness A/P: 69 yo male admitted for hematuria, secondary to prostate varices/BPH, complicated with recent fem-pop bypass graft repair #Hematuria with clots - likely 2/2 anti-platelet therapy (ASA and Plavix) and Prostate varices - follow as per urology - Zambrano bag contains mostly orange urine - On 12/17, Dr. Yu had noted prostate varices on cystoscopy with fulguration - Hemodynamically stable - Hemoglobin has had slight drop- continue serial H/H - Has had recent femoral bypass graft repair on 11/19/[address] Livingston - Must continue anti-platelet therapy - unless bleeding becomes hemodynamically significant and/or patient requires multiple blood transfusions - ASA will be continued - After discussion with Urology and Vascular surgery; Plavix will be held - Urology on consultation; Zambrano will remain in place - no plans for intervention at this time #Asymptomatic anemia 2/2 hematuria / Iron deficiency - Hg remains stable and patient has not required transfusions - c/w Ferrous sulfate - Will continue to follow H&H closely #Peripheral vascular disease - Recent femoral graft with multiple graft failures; - c/w ASA / Atorvastatin - Discussed with Urology and Vascular surgery - Will resume heparin drip; transition to Coumadin; likely this afternoon after repeat lab work available - Discussed risks / benefits with patient - advised that he is at high risk of blood supply of leg to become compromised while off anticoagulation; patient has verbalized understanding #CAD s/p stent - c/w ASA / Atorvastatin #BPH - c/w Finasteride and Tamsulosin #Hypertension - c/w Lisinopril / Amlodipine with holding parameters #DVT prophylaxis - c/w TEDs/Sequentials - Will resume Heparin drip within 12 hours Dispo: Contact [facility] this morning to facilitate transfer. Urology declined transfer at this time. Discussed extensively with urology, assistance appreciated. Addendum: Multiple conversations with son Shaw, Lucretia, patient and Dr. Kemp - Dr. Whalen's associate at [facility]. Patient's did speak with Dr. Whalen who accepted patient for transfer to [facility]. Discussed again with Dr. Kemp, and Dr. Claudio will be accepting physician for transfer to [facility] 12/30/19. VS,Fishbone, I+O VS, Fishbone, I+O Laboratory Tests 12/28/19 14:19 12/29/19 00:10 12/29/19 06:32 Vital Signs Date Time Temp Pulse Resp B/P (MAP) Pulse Ox O2 Delivery O2 Flow Rate FiO2 12/29/19 09:00 48 108/69 12/29/19 06:00 99.0 16 91 Room Air I&O- Last 24 Hours up to 6 AM 12/29/19 05:59 Intake Total 6555 ml Output Total 6040 ml Balance 515 ml SAYDA LOPEZ MD Dec 29, 2019 13:30
[2019-12-29 14:00] VITALS: BP 102/63
[2019-12-29 14:15] LABS: HEMATOCRIT 30.1 % (42.0-52.0); HEMOGLOBIN 9.7 g/dl (13.5-17.5)
--- NOTE | 2019-12-29 15:06 | IPNPDOC ---
Text Note Date of Service The patient was seen on 12/29/19. NOTE Patient's Zambrano catheter was still out. He was having long clots but was able to urinate with low postvoid residuals. Having bladder spasms but they are slightly better than they were. Physical exam: Vital signs are stable. He is alert and oriented 3. His no CVA tenderness. His abdomen is soft and nontender. His extremities show no cyanosis clubbing or edema. Impression: -Gross hematuria in a patient who is Plavix was stopped 12/27/19 but he is on aspirin and heparinized for history of a femoral grafting now voiding 175 mL with a PVR of 41 mL after the Zambrano catheter was removed still with some gross hematuria but he had been completely clear on CBI and off CBI for the last several days but still had severe bladder spasms. His bleeding definitely appears to be urethral in nature. -Status post cystoscopy and clot irrigation by Dr. Yu on 12/18/19 and pros tatic varicoses were seen and fulgurated -Asymptomatic anemia by H&H has been stable but he did require 2 units of packed red blood cells this week -Abdominal ultrasound was done and this showed the prostate to be at least 263 g Plan: -Continue finasteride and Flomax -Continue trying to leave the Zambrano catheter out for now -Continue aspirin and heparin drip but I would hold off on the Coumadin until I speak to another urologist at [facility] I spoke with Dr. Silva at [facility] today since medicine was interested in transferring Mr. Leonard to eventually have his prostate taking care of. There is a physician there that may be able to do a HoLep procedure or a possible robotic simple prostatectomy but he will need to be reached and this will need to be discussed with him. I do not believe that any surgical operate on him until he is at least off the Plavix for 7 days. I spoke with Dr. Livingston of vascular surgery today. She recommends not stopping the aspirin for any reason. When anticoagulation is stopped he does have a risk of clotting his graft and losing a limb. We will need to really try to balance what is best for this patient but on anticoagulation with such a large prostate most likely he will just continue to bleed. I had discussed with the patient we can give finasteride time to work and this may take 3 months. I will talk to her urologist at [facility] who does these procedures and see if he would be willing to do this procedure to try to get the patient out of the hospital. Unfortunately the patient is just very upset with the situation which is completely understandable but unfortunately it is a very difficult case. I spent at least 45 minutes today with greater than 50% of this in [id number] consultation with different physicians and the patient VSTroy, I+O VSTroy I+O Laboratory Tests 12/29/19 00:10 12/29/19 06:32 12/29/19 14:01 Vital Signs Date Time Temp Pulse Resp B/P (MAP) Pulse Ox O2 Delivery O2 Flow Rate FiO2 12/29/19 14:00 99.5 84 16 102/63 (76) 84 Room Air I&O- Last 24 Hours up to 6 AM 12/29/19 06:00 Intake Total 6511 ml Output Total 6040 ml Balance 471 ml CONCHIS QUINTANILLA MD Dec 29, 2019 15:06
[2019-12-29] MEDS: RAMELTEON 8 MG TAB (ROZEREM) PO SCH (21:00)
[2019-12-29] MEDS: FINASTERIDE 5 MG TAB PO SCH (21:39)
[2019-12-29] MEDS: TAMSULOSIN 0.4 MG CAP PO SCH (21:39)
[2019-12-29] MEDS: diphenhydrAMINE 25MG CAP PO PRN (21:39)
[2019-12-29 22:00] VITALS: BP 113/77
[2019-12-30] MEDS: BELLADONNA 16.2mg/OPIUM 60mg 1 EA SUPP PR SCH ×4 (00:13→18:00)
[2019-12-30 06:00] VITALS: BP 125/77
[2019-12-30 06:24] LABS: HEMATOCRIT 28.3 % (42.0-52.0); HEMOGLOBIN 9.6 g/dl (13.5-17.5); MEAN CORPUSCULAR HEMOGLOBIN 32.5 pg (27.0-33.0); MEAN CORPUSCULAR HGB CONC 33.9 g/dl (32.0-36.5); MEAN CORPUSCULAR VOLUME 95.9 fl (80.0-96.0); PLATELET COUNT, AUTOMATED 229 10^3/uL (150-450); RED BLOOD COUNT 2.95 10^6/uL (4.30-6.10); WHITE BLOOD COUNT 5.4 10^3/uL (4.0-10.0)
[2019-12-30 06:32] LABS: BLOOD UREA NITROGEN 14 MG/DL (7-18); CALCIUM LEVEL 8.4 MG/DL (8.8-10.2); CARBON DIOXIDE LEVEL 25 MEQ/L (21-32); CHLORIDE LEVEL 107 MEQ/L (98-107); CREATININE FOR GFR 1.06 MG/DL (0.70-1.30); GLOMERULAR FILTRATION RATE > 60.0 (>42); GLUCOSE, FASTING 98 MG/DL (70-100); MAGNESIUM LEVEL 1.8 MG/DL (1.8-2.4); POTASSIUM SERUM 4.1 MEQ/L (3.5-5.1); SODIUM LEVEL 139 MEQ/L (136-145)
[2019-12-30] MEDS ORDERED: VITMTA PO (08:30)
[2019-12-30] MEDS ORDERED: FERR325T18 PO (08:30)
[2019-12-30] MEDS ORDERED: FOLI1TAB11 PO (08:30)
[2019-12-30] MEDS ORDERED: FLOM0.4C39 PO (08:30)
[2019-12-30] MEDS: BACTRIM 160MG/800MG DS TAB PO SCH (09:19)
[2019-12-30 09:20] VITALS: BP 125/77
[2019-12-30] MEDS: lisinopriL 5 MG TAB PO SCH (09:20)
[2019-12-30] MEDS: FOLIC ACID 1 MG TAB PO SCH (09:20)
[2019-12-30] MEDS: ASPIRIN 81 MG ENTERIC TAB PO SCH (09:20)
[2019-12-30] MEDS: VITAMIN D 1,000 INTERNATIONAL UNITS TABLET PO SCH (09:20)
[2019-12-30] MEDS: amLODIPine 5 MG TAB PO SCH (09:20)
[2019-12-30] MEDS: MULTIVITAMINS/MINERALS THERAP 1 TAB PO SCH (09:21)
[2019-12-30] MEDS: ATORVASTATIN 20 MG TAB PO SCH (09:21)
[2019-12-30] MEDS: FERROUS SULFATE 325MG TAB PO SCH (09:21)
--- NOTE | 2019-12-30 10:59 | DS.PDOC ---
Discharge Summary General Date of Admission Dec 21, 2019 at 20:41 Date of Discharge 12/30/19 Specialist/Consultants Involve urology - [facility], [facility], vascular surgery Discharge Summary PROCEDURES PERFORMED DURING STAY: cystoscopy, clot irrigation, fulgurated prostatic varicoses, continuous bladder irrigation DISCHARGE DIAGNOSES: # gross hematuria secondary to prostatic varicoses # asymptomatic anemia # BPH SECONDARY DIAGNOSES: 1. ASCVD with stents placed x2 (2-3 years ago) 2. Peripheral Arterial Disease with femoral bypass grafting complicated by multiple graft failures 3. Hypertension 4. Hyperlipidemia 5. History of MALACHI 6. History of right lower extremity DVT 7. Alcohol abuse? COMPLICATIONS/CHIEF COMPLAINT: Gross Hematuria. HISTORY OF PRESENT ILLNESS: 69 year old male who presented for complaints of hematuria. He was recently discharged from [facility] on 12/19/2019 for hematuria. Patient had been evaluated by Urology at his previous hospitalization and received a cystoscopy which demonstrated multiple varices on the prostate that were cauterized. Additionally, he has a history of PAD with femoral bypass grafting complicated by multiple graft failures and a recent left extensive femoral exploration with excision of multiple failed grafts and patches on the left femoral artery as well as ASCVD with cardiac stents placed 2-3 years ago. The patient has remained on aspirin and plavix due to his high risk of femoral graft occlusion. Decision was made at the patients previous hospitalization to continue his aspirin and plavix and follow-up outpatient with his urologist in [place] with the understanding that he will likely develop hematuria. Since discharge the patient had stated that he was doing relatively well. He stated that he did notice some pink/red urine but understood that it was expected. However, on day of presentation, he had tried to go to the bathroom and was unable to urinate. He then developed abdominal pain and presented to the ER. He was found to be anemic. A naidu catheter was inserted and the patient voided pink/red urine and clots. Urology was contacted with recommendations for continuous bladder irrigation. Hospitalist Service was consulted and the patient was admitted for further evaluation and management HOSPITAL COURSE: Patient admitted for further evaluation and treatment, managed by urology. Bleeding does seem to have improved, as well as his symptoms. Family prefers further care with his urologist Dr. Whalen. Extensive discussions with multiple family members - Shaw (son), Lucretia () and daughter, as well as several urologists. #Hematuria with clots - likely 2/2 anti-platelet therapy (ASA and Plavix) and Prostate varices - follow as per urology - Naidu bag contains mostly pink urine - On 12/17, Dr. Yu had noted prostate varices on cystoscopy with fulguration - Hemoglobin has had slight drop- continue serial H/H - Has had recent femoral bypass graft repair on 11/19/[address] Livingston - Must continue anti-platelet therapy - unless bleeding becomes hemodynamically significant and/or patient requires multiple blood transfusions - After discussion with Urology and Vascular surgery; Plavix will be held - ASA will be continued #Asymptomatic anemia 2/2 hematuria / Iron deficiency - Hg remains stable and patient has not required transfusions - c/w Ferrous sulfate #Peripheral vascular disease - Recent femoral graft with multiple graft failures; - c/w ASA / Atorvastatin - Discussed with Urology and Vascular surgery - Discussed risks / benefits with patient - advised that he is at high risk of blood supply of leg to become compromised while off anticoagulation; patient has verbalized understanding #CAD s/p stent - c/w ASA / Atorvastatin #BPH - c/w Finasteride and Tamsulosin #Hypertension - c/w Lisinopril / Amlodipine with holding parameters Extensive discussions with multiple urologists. Eventually Dr. Whalen, the patient's urologist, agreed for transfer to [facility] for further evaluation and treatment. DISCHARGE MEDICATIONS: Please see below. ALLERGIES: Please see below. PHYSICAL EXAMINATION ON DISCHARGE: VITAL SIGNS: Please see below. GENERAL: NAD, lying comfortably in bed HEENT: NC/AT, EOMI, PERRL Lungs; CTA B/L Heart: +S1S2, RRR Abd: soft, NT, +BS Ext: no edema LABORATORY DATA: Please see below. ACTIVITY: [As tolerated]. DIET: low fat low cholesterol, 2 gram sodium DISCHARGE PLAN: Transfer to [facility], accepting MD Dr. Claudio (urology) DISCHARGE INSTRUCTIONS: 1. As per receiving facility DISCHARGE CONDITION: [Stable]. TIME SPENT ON DISCHARGE: 40 minutes. Vital Signs/I&Os Vital Signs Date Time Temp Pulse Resp B/P (MAP) Pulse Ox O2 Delivery O2 Flow Rate FiO2 12/30/19 09:20 125/77 12/30/19 09:20 71 12/30/19 06:00 98.4 18 95 Room Air I&O- Last 24 Hours up to 6 AM 12/30/19 06:00 Intake Total 720 ml Output Total 1315 ml Balance -595 ml Laboratory Data Labs 24H Laboratory Tests 2 12/30/19 05:48: Nucleated Red Blood Cells % (auto) 0.0, Anion Gap 7L, Glomerular Filtration Rate > 60.0, Calcium Level 8.4L, Magnesium Level 1.8 CBC/BMP Laboratory Tests 12/29/19 14:01 12/30/19 05:48 Microbiology Microbiology 12/28/19 Stool Occult Blood (LYNETTE) - Final, Complete Discharge Medications Scheduled Amlodipine Besylate (Amlodipine Besylate) 5 Mg Tablet, 5 MG PO DAILY, (Reported) Aspirin (Aspirin EC) 81 Mg Tablet.dr, 81 MG PO DAILY, (Reported) Atorvastatin Calcium (Atorvastatin Calcium) 80 Mg Tablet, 80 MG PO DAILY, (Reported) Bacillus Coagulans (Bacid with Lactospore) 1 Each Capsule, 1 CAP PO WM, (Reported) Cholecalciferol (Vitamin D3) (Vitamin D3) 1,000 Unit Tablet, 2,000 UNITS PO DAILY, (Reported) Ferrous Sulfate (Ferrous Sulfate) 325 Mg Tablet, 325 MG PO BID Finasteride (Finasteride) 5 Mg Tablet, 5 MG PO QHS, (Reported) Folic Acid (Folic Acid) 1 Mg Tablet, 1 MG PO DAILY Lisinopril (Lisinopril) 5 Mg Tablet, 5 MG PO DAILY, (Reported) Multivitamins (Thera M Plus Tablet) 1 Each Tablet, 1 TAB PO DAILY Tamsulosin HCl (Flomax) 0.4 Mg Capsule, 0.8 MG PO QHS Allergies Coded Allergies: Contrast Media (Verified Allergy, Unknown, 12/15/19) Penicillins (Verified Allergy, Unknown, 12/15/19) Quinolones (Verified Allergy, Unknown, 12/15/19) codeine (Verified Adverse Reaction, Unknown, PASSED OUT, 12/21/19) SAYDA LOPEZ MD Dec 30, 2019 10:59
--- NOTE | 2019-12-30 13:33 | IPNPDOC ---
Text Note Date of Service The patient was seen on 12/30/19. NOTE Mr. Leonard is actually voiding well and she's had very few clots. He is still on a heparin drip. His bladder spasms are much improved. Physical exam: Vital signs are stable. He is alert and oriented 3. His no CVA tenderness. His abdomen is soft and nontender. His extremities show no cyanosis clubbing or edema. Impression:ms. Osborn -Gross hematuria in a patient who is Plavix was stopped 12/27/19 but he is on aspirin and heparinized for history of a femoral grafting now voiding with only a few clots and feels like he is emptying well. His bladder spasms are much improved. -Status post cystoscopy and clot irrigation by Dr. Yu on 12/18/19 and prostatic varicoses were seen and fulgurated -Asymptomatic anemia by H&H has been stable but he did require 2 units of packed red blood cells this week -Abdominal ultrasound was done and this showed the prostate to be at least 263 g Plan: -Continue finasteride and Flomax -Continue trying to leave the Zambrano catheter out for now -Continue aspirin and heparin drip but I would hold off on the Coumadin until I speak to another urologist at [facility]. I assume they will call on Wednesday to see if transfer is appropriate and if they would be willing to operate. If not the patient will need to be coumadinized and hopefully the bleeding will be controlled from the prostate and finasteride will have time to work. VS,Fishbone, I+O VS, Fishbone, I+O Laboratory Tests 12/29/19 14:01 12/30/19 05:48 Vital Signs Date Time Temp Pulse Resp B/P (MAP) Pulse Ox O2 Delivery O2 Flow Rate FiO2 12/30/19 09:20 125/77 12/30/19 09:20 71 12/30/19 06:00 98.4 18 95 Room Air I&O- Last 24 Hours up to 6 AM 12/30/19 06:00 Intake Total 720 ml Output Total 1315 ml Balance -595 ml CONCHIS QUINTANILLA MD Dec 30, 2019 13:33
[2019-12-30 14:00] VITALS: BP 122/64
== END 2019-12-30 19:11 | disposition short-term general hospital (02) | DRG 813 ==
LOC: M ED 17:12 → M ED INP 20:41 → ENRESERV 23:54 → M MSPAV 12-22 00:25
PROVIDERS: ADMIT Internal Medicine; ATTEND Internal Medicine
PROC: 30233N1 Transfusion of Nonautologous Red Blood Cells into Peripheral Vein, Percutaneous Approach (ICD-10-PCS; principal; 2019-12-28)
DX: D68.32 Hemorrhagic disorder due to extrinsic circulating anticoagulants (principal); R31.0 Gross hematuria; D50.0 Iron deficiency anemia secondary to blood loss (chronic); I10 Essential (primary) hypertension; E78.5 Hyperlipidemia, unspecified; N42.89 Other specified disorders of prostate; G47.33 Obstructive sleep apnea (adult) (pediatric); I44.1 Atrioventricular block, second degree; N40.0 Benign prostatic hyperplasia without lower urinary tract symptoms; I25.10 Atherosclerotic heart disease of native coronary artery without angina pectoris; I73.9 Peripheral vascular disease, unspecified; I86.8 Varicose veins of other specified sites; Z86.718 Personal history of other venous thrombosis and embolism; Z95.820 Peripheral vascular angioplasty status with implants and grafts; Z95.5 Presence of coronary angioplasty implant and graft; Z98.84 Bariatric surgery status; Z87.891 Personal history of nicotine dependence; Z79.82 Long term (current) use of aspirin; Z79.02 Long term (current) use of antithrombotics/antiplatelets; Z79.899 Other long term (current) drug therapy; Z88.0 Allergy status to penicillin; Z88.1 Allergy status to other antibiotic agents; Z88.5 Allergy status to narcotic agent; Z91.041 Radiographic dye allergy status

== ENCOUNTER → 2020-01-03 | Outpatient (CLI) | payer MEDICARE ==
[~2020-01-03] MED LIST changes: +ASPI-161 PO; +FERR325T18 PO; +FOLI1TAB11 PO; +VITMTA PO
--- NOTE | 2020-01-03 13:43 | REP ---
INDICATION: SOB. COMPARISON: Comparison chest x-ray June 27, 2018. TECHNIQUE: Two views.. FINDINGS: The lungs are well inflated and free of infiltrate. The pleural angles are sharp. The heart size is normal. Pulmonary vasculature is not increased. No significant bony abnormality is seen. There are granulomatous lymph node calcifications in the left hilus unchanged from the comparison study. There is a calcification in the left upper quadrant as well which appears granulomatous also unchanged. IMPRESSION: No active disease. <Electronically signed by Shahid Monson > 01/03/20 [id number]
== END ==
LOC: M WUC 10:17
PROVIDERS: ATTEND Physician Assistant Medical
DX: R06.02 Shortness of breath (principal); I89.8 Other specified noninfective disorders of lymphatic vessels and lymph nodes

== ENCOUNTER → 2020-02-07 | Outpatient (CLI) | payer MEDICARE ==
[2020-02-07 18:03] LABS: IMMUNOGLOBULIN M 98.9 MG/DL (40-230)
== END ==
LOC: M WUC 15:46
PROVIDERS: ATTEND Ophthalmology
DX: B39.9 Histoplasmosis, unspecified (principal); B58.9 Toxoplasmosis, unspecified

== ENCOUNTER → 2020-02-12 | Outpatient (REF) | payer MEDICARE ==
[2020-02-12 17:34] LABS: AMORPHOUS SEDIMENT LARGE (NEGATIVE); BACTERIA, URINE AUTO NEGATIVE (NEGATIVE); CALCIUM OXALATE CRYSTALS SMALL; MUCUS, URINE LARGE (NEGATIVE); RBC, URINE AUTO 12 /HPF (0-3); SQUAMOUS EPITHELIAL CELL UR AU 0 /HPF (0-6); WBC, URINE AUTO 23 /HPF (0-3)
== END ==
LOC: M SMT 16:59
PROVIDERS: ATTEND Specialist
DX: R31.0 Gross hematuria (principal)
CPT/HCPCS: 51798; 81015; 87086; G0463

== ENCOUNTER → 2020-03-07 | Outpatient (REF) | payer MEDICARE ==
[2020-03-07 13:38] LABS: FOLATE 5.1 NG/ML
== END ==
LOC: M LAB REF 12:14
PROVIDERS: ATTEND Internal Medicine
DX: Z98.84 Bariatric surgery status (principal)

== ENCOUNTER → 2020-03-29 | Outpatient (CLI) | payer MEDICARE ==
--- NOTE | 2020-03-29 12:07 | REP ---
INDICATION: CLAUDICATION. COMPARISON: Comparison study December 14, 2019.. TECHNIQUE: Bilateral lower extremity arterial Doppler ultrasound. FINDINGS: Ankle brachial indices are 0.5 on the right and 0.5 on the left. The posterior tibial arteries are bilaterally occluded distally. Severe plaquing is noted throughout both lower extremities. Monophasic waveforms are noted predominantly and bilaterally. The right superficial femoral artery occlusion is again noted with some revascularize flow observed in the proximal superficial femoral artery. The left profundal femoral artery is noted to be occluded. Some revascularize flow is seen in the proximal superficial femoral artery. The mid and distal segments of the superficial femoral artery and the left popliteal artery remain occluded. The left posterior tibial artery is occluded proximally and distally. A large collateral is again noted in the left groin there is an occluded vascular structure in the medial thigh question old in situ bypass graft. Right lower extremity arterial Doppler velocity chart: Right COMMERCIAL DEVELOPMENT MANAGER PSV 119 cm/S Profundal 190 Proximal SFA occluded, revascularize flow 99 cm/S Mid SFA occluded Distal SFA occluded Popliteal revascularize flow 89 cm/S Proximal HÉCTOR 23 Tibial-peroneal trunk 61 Proximal RESPIRATORY SCIENTIST 24 Distal RESPIRATORY SCIENTIST occluded Distal HÉCTOR 36 Left lower extremity arterial Doppler velocity chart: Left COMMERCIAL DEVELOPMENT MANAGER PSV 127 cm/S Profundal occluded Proximal SFA occluded/34 revascularized slashed occluded Mid SFA occluded Distal SFA occluded Popliteal occluded Proximal HÉCTOR 24 Tibial-peroneal trunk 22 Proximal RESPIRATORY SCIENTIST occluded Distal RESPIRATORY SCIENTIST occluded Distal HÉCTOR 21 IMPRESSION: Atherosclerotic changes with bilateral SFA occlusions and monophasic arterial Doppler waveforms. Bilateral posterior tibial artery occlusions are observed. <Electronically signed by Shahid Monson > 03/29/20 [id number]
== END ==
LOC: M RAD 08:40
PROVIDERS: ATTEND Physician Assistant
DX: I70.213 Atherosclerosis of native arteries of extremities with intermittent claudication, bilateral legs (principal)

== ENCOUNTER → 2020-09-16 | Outpatient (REF) | payer MEDICARE ==
[~2020-09-16] MED LIST changes: +GABA-283 PO; -GABA-845 PO; -LISI-542 PO; +LISI-898 PO
== END ==
LOC: M LAB REF 12:30
PROVIDERS: ATTEND Internal Medicine
DX: Z98.84 Bariatric surgery status (principal)

== ENCOUNTER → 2021-01-28 | Outpatient (CLI) | payer MEDICARE ==
[~2021-01-28] MED LIST changes: -LISI-898 PO; +LISI5TAB11 PO
[2021-01-28 14:42] LABS: APPEARANCE, URINE CLEAR (CLEAR); BACTERIA, URINE AUTO NEGATIVE (NEGATIVE); BILIRUBIN, URINE AUTO NEGATIVE (NEGATIVE); BLOOD, URINE BLOOD NEGATIVE (NEGATIVE); CALCIUM OXALATE CRYSTALS SMALL; COLOR, URINE YELLOW (YELLOW); GLUCOSE, URINE (UA) AUTO 3+ mg/dL (NEGATIVE); KETONE, URINE AUTO TRACE mg/dL (NEGATIVE); LEUKOCYTE ESTERASE, URINE AUTO NEGATIVE (NEGATIVE); MUCUS, URINE SMALL (NEGATIVE); NITRITE, URINE AUTO NEGATIVE (NEGATIVE); PROTEIN, URINE AUTO NEGATIVE (NEGATIVE); RBC, URINE AUTO 0 /HPF (0-3); SPECIFIC GRAVITY URINE AUTO 1.022 (1.002-1.035); SQUAMOUS EPITHELIAL CELL UR AU 0 /HPF (0-6); UROBILINOGEN, URINE AUTO 0.2 mg/dL (0.0-2.0); WBC, URINE AUTO 1 /HPF (0-3)
[2021-01-29 23:07] LABS: PSA TOTAL 2.1 ng/mL (0.0-4.0)
== END ==
LOC: M LAB 13:50
PROVIDERS: ATTEND Specialist
DX: R97.20 Elevated prostate specific antigen [PSA] (principal)

== ENCOUNTER → 2021-03-04 | Outpatient (REF) | payer MEDICARE, OTHER ==
[2021-03-04 13:20] LABS: APPEARANCE, URINE TURBID (CLEAR); BACTERIA, URINE AUTO NEGATIVE (NEGATIVE); BILIRUBIN, URINE AUTO NEGATIVE (NEGATIVE); BLOOD, URINE BLOOD NEGATIVE (NEGATIVE); CALCIUM OXALATE CRYSTALS SMALL; COLOR, URINE YELLOW (YELLOW); GLUCOSE, URINE (UA) AUTO NEGATIVE (NEGATIVE); KETONE, URINE AUTO NEGATIVE (NEGATIVE); LEUKOCYTE ESTERASE, URINE AUTO NEGATIVE (NEGATIVE); MUCUS, URINE SMALL (NEGATIVE); NITRITE, URINE AUTO NEGATIVE (NEGATIVE); PROTEIN, URINE AUTO NEGATIVE (NEGATIVE); RBC, URINE AUTO 2 /HPF (0-3); SPECIFIC GRAVITY URINE AUTO 1.024 (1.002-1.035); SQUAMOUS EPITHELIAL CELL UR AU 0 /HPF (0-6); UROBILINOGEN, URINE AUTO 0.2 mg/dL (0.0-2.0); WBC, URINE AUTO 2 /HPF (0-3)
== END ==
LOC: M SMT 12:52
PROVIDERS: ATTEND Nurse Practitioner Women's Health
DX: R31.0 Gross hematuria (principal)

== ENCOUNTER → 2021-03-27 | Outpatient (REF) | payer MEDICARE, OTHER ==
[2021-03-27 17:53] LABS: IRON (FE) 50 UG/DL (65-175); PERCENT SATURATION 13.7 % (19.7-50.0); TOTAL IRON BINDING CAPACITY 364 UG/DL (250-450)
[2021-03-28 10:52] LABS: FOLATE 5.3 NG/ML
[2021-03-28 12:52] LABS: VITAMIN B12 LEVEL > 2000 PG/ML
== END ==
LOC: M LAB REF 16:53
PROVIDERS: ATTEND Internal Medicine
DX: Z98.84 Bariatric surgery status (principal); D51.9 Vitamin B12 deficiency anemia, unspecified

== ENCOUNTER → 2021-05-30 | Outpatient (REF) | payer OTHER, MEDICARE ==
[~2021-05-30] MED LIST changes: -D31000TA2 PO; +VITA100093 PO
[2021-05-30 13:27] LABS: PERCENT SATURATION 30.5 % (19.7-50.0)
== END ==
LOC: M LAB REF 12:20
PROVIDERS: ATTEND Internal Medicine
DX: Z98.84 Bariatric surgery status (principal); D50.9 Iron deficiency anemia, unspecified

== ENCOUNTER → 2021-08-20 | Outpatient (CLI) | payer OTHER | LOC: M WHC 08:20 | PROVIDERS: ATTEND Internal Medicine | DX: K76.0 Fatty (change of) liver, not elsewhere classified (principal) ==

== ENCOUNTER → 2021-09-02 | Outpatient (CLI) | payer OTHER | LOC: M RAD 13:13 | PROVIDERS: ATTEND Internal Medicine | DX: R91.8 Other nonspecific abnormal finding of lung field (principal) ==

== ENCOUNTER → 2021-09-05 | Outpatient (REF) | payer OTHER ==
[2021-09-05 12:41] LABS: FERRITIN 145 NG/ML (26-388); IRON (FE) 127 UG/DL (65-175); PERCENT SATURATION 49.8 % (19.7-50.0); TOTAL IRON BINDING CAPACITY 255 UG/DL (250-450)
[2021-09-05 13:01] LABS: HEPATITIS B SURFACE ANTIGEN NEGATIVE (NEGATIVE)
[2021-09-05 13:29] LABS: HEPATITIS B CORE ANTIBODY IGM NEGATIVE (NEGATIVE); HEPATITIS C VIRUS ABY INDEX 0.1 INDEX (<0.8)
== END ==
LOC: M LAB REF 11:58
PROVIDERS: ATTEND Internal Medicine
DX: R74.8 Abnormal levels of other serum enzymes (principal); Z79.899 Other long term (current) drug therapy

== ENCOUNTER → 2021-09-08 | Outpatient (REF) | payer OTHER ==
[2021-09-08 13:35] LABS: APPEARANCE, URINE CLEAR (CLEAR); BACTERIA, URINE AUTO NEGATIVE (NEGATIVE); BILIRUBIN, URINE AUTO NEGATIVE (NEGATIVE); BLOOD, URINE BLOOD NEGATIVE (NEGATIVE); COLOR, URINE YELLOW (YELLOW); GLUCOSE, URINE (UA) AUTO NEGATIVE (NEGATIVE); KETONE, URINE AUTO NEGATIVE (NEGATIVE); LEUKOCYTE ESTERASE, URINE AUTO NEGATIVE (NEGATIVE); MUCUS, URINE SMALL (NEGATIVE); NITRITE, URINE AUTO NEGATIVE (NEGATIVE); PROTEIN, URINE AUTO NEGATIVE (NEGATIVE); RBC, URINE AUTO 1 /HPF (0-3); SPECIFIC GRAVITY URINE AUTO 1.024 (1.002-1.035); SQUAMOUS EPITHELIAL CELL UR AU 1 /HPF (0-6); TRANSITIONAL EPITHELIAL AUTO <1 /HPF; UROBILINOGEN, URINE AUTO 0.2 mg/dL (0.0-2.0); WBC, URINE AUTO 1 /HPF (0-3)
== END ==
LOC: M SMT 13:00
PROVIDERS: ATTEND Physician Assistant
DX: R31.0 Gross hematuria (principal)

== ENCOUNTER 2021-10-14 12:23 | Emergency (ER) | payer OTHER ==
[~2021-10-14] VITALS: Ht 177.8 cm; Wt 96.4 kg
[2021-10-14 12:23] VITALS: BP 131/60
== END 2021-10-14 13:46 | disposition home or self-care (01) ==
LOC: M ED 12:23
DX: S09.90XA Unspecified injury of head, initial encounter (principal); W01.198A Fall on same level from slipping, tripping and stumbling with subsequent striking against other object, initial encounter; E11.51 Type 2 diabetes mellitus with diabetic peripheral angiopathy without gangrene; I10 Essential (primary) hypertension; E78.5 Hyperlipidemia, unspecified; E66.9 Obesity, unspecified; G47.33 Obstructive sleep apnea (adult) (pediatric); I73.9 Peripheral vascular disease, unspecified; Z88.0 Allergy status to penicillin; Z88.6 Allergy status to analgesic agent; Z91.041 Radiographic dye allergy status; Z79.82 Long term (current) use of aspirin; Z79.899 Other long term (current) drug therapy

== ENCOUNTER → 2022-02-06 | Outpatient (CLI) | payer OTHER | LOC: M WHC 09:38 | PROVIDERS: ATTEND Surgery Vascular Surgery | DX: I73.9 Peripheral vascular disease, unspecified (principal); I65.23 Occlusion and stenosis of bilateral carotid arteries ==

== ENCOUNTER 2022-06-26 06:20 | Day surgery (SDC) | payer OTHER ==
[~2022-06-26] VITALS: Ht 172.7 cm; Wt 99.8 kg
[~2022-06-26 06:20] MED LIST changes: +NS 1,000 ML IV ONE
[2022-06-26] MEDS ORDERED: propofoL 200 MG/20 ML VIAL As Ordered ONE (07:08)
[2022-06-26] MEDS ORDERED: LIDOCAINE 2% 100MG/5ML SDV (FOR ANES.) As Ordered ONE (07:08)
[2022-06-26] MEDS ORDERED: GLUCAGON INJ 1MG VIAL As Ordered ONE (08:12)
[2022-06-26] MEDS ORDERED: GLYCOPYRROLATE INJ 0.2 MG/ML 2 ML VIAL As Ordered ONE (08:12)
[2022-06-26 08:30] VITALS: BP 126/55
== END 2022-06-26 08:44 | disposition home or self-care (01) ==
LOC: M OPP 06:20
PROVIDERS: ATTEND Internal Medicine Gastroenterology
DX: Z12.11 Encounter for screening for malignant neoplasm of colon (principal); Z86.010 Personal history of colon polyps; D12.5 Benign neoplasm of sigmoid colon; K63.5 Polyp of colon; K57.30 Diverticulosis of large intestine without perforation or abscess without bleeding; K64.8 Other hemorrhoids; Z79.02 Long term (current) use of antithrombotics/antiplatelets; Z79.82 Long term (current) use of aspirin; Z79.899 Other long term (current) drug therapy; Z88.0 Allergy status to penicillin; Z88.5 Allergy status to narcotic agent; Z91.041 Radiographic dye allergy status
CPT/HCPCS: 45385; 88305; J1610

== ENCOUNTER → 2022-09-25 | Outpatient (REF) | payer OTHER ==
[~2022-09-25] MED LIST changes: -NS 1,000 ML IV ONE
[2022-09-25 11:33] LABS: PERCENT SATURATION 35.9 % (19.7-50.0)
[2022-09-25 11:39] LABS: FOLATE 8.8 NG/ML (>5.4)
== END ==
LOC: M LAB REF 10:14
PROVIDERS: ATTEND Internal Medicine
DX: Z98.84 Bariatric surgery status (principal); D50.9 Iron deficiency anemia, unspecified

== ENCOUNTER → 2022-10-02 | Outpatient (CLI) | payer OTHER ==
[~2022-10-02] MED LIST changes: -GABA-283 PO; +GABA-284 PO
== END ==
LOC: M RAD 08:55
PROVIDERS: ATTEND Surgery Vascular Surgery
DX: I73.9 Peripheral vascular disease, unspecified (principal)

== ENCOUNTER → 2022-11-19 | Outpatient (CLI) | payer OTHER ==
[2022-11-19 10:18] LABS: BLOOD UREA NITROGEN 22 MG/DL (9-23); GLOMERULAR FILTRATION RATE > 60.0 (>42)
== END ==
LOC: M LAB 09:10
PROVIDERS: ATTEND Surgery Vascular Surgery
DX: I73.9 Peripheral vascular disease, unspecified (principal)

== ENCOUNTER → 2023-10-04 | Outpatient (REF) | payer OTHER ==
[~2023-10-04] MED LIST changes: -ASPI-161 PO; +ASPI-615 PO
[2023-10-04 14:03] LABS: FERRITIN 114.6 NG/ML (10.5-307.3); FOLATE 6.5 NG/ML (>5.4); PERCENT SATURATION 39.4 % (19.7-50.0); PHOSPHORUS LEVEL 2.9 MG/DL (2.4-5.1)
[2023-10-04 14:04] LABS: TOTAL 25(OH) VITAMIN D 37.7 NG/ML (20.0-100.0)
== END ==
LOC: M LAB REF 12:58
PROVIDERS: ATTEND Internal Medicine
DX: Z98.84 Bariatric surgery status (principal)

== ENCOUNTER → 2024-10-06 | Outpatient (REF) | payer OTHER, MEDICARE ==
[~2024-10-06] MED LIST changes: -FLOM0.4C39 PO; +TAMS-18 PO
[2024-10-06 14:35] LABS: IRON (FE) 79.0 UG/DL (65-175); PERCENT SATURATION 20.8 % (19.7-50.0); PHOSPHORUS LEVEL 3.6 MG/DL (2.4-5.1)
[2024-10-06 14:40] LABS: TOTAL 25(OH) VITAMIN D 36.0 NG/ML (20.0-100.0)
[2024-10-06 14:46] LABS: VITAMIN B12 LEVEL 1050.0 PG/ML (211-911)
[2024-10-10 02:45] LABS: VITAMIN A, RETINOL LEVEL 58 mcg/dL (38-98)
[2024-10-13 07:53] LABS: VITAMIN B1 LEVEL WHOLE BLOOD 107 nmol/L (78-185)
== END ==
LOC: M LAB REF 11:46
PROVIDERS: ATTEND Internal Medicine
DX: Z98.84 Bariatric surgery status (principal); Z79.899 Other long term (current) drug therapy

== ENCOUNTER → 2024-10-25 | Outpatient (CLI) | payer MEDICARE | LOC: M RAD 12:50 | PROVIDERS: ATTEND Internal Medicine | DX: Z12.2 Encounter for screening for malignant neoplasm of respiratory organs (principal); F17.211 Nicotine dependence, cigarettes, in remission; I25.10 Atherosclerotic heart disease of native coronary artery without angina pectoris; J84.10 Pulmonary fibrosis, unspecified ==

== ENCOUNTER → 2024-11-23 | Outpatient (REF) | payer MEDICARE | LOC: M LAB REF 13:34 | PROVIDERS: ATTEND Internal Medicine | DX: D52.9 Folate deficiency anemia, unspecified (principal) ==